=== PATIENT | male | born 1985 | race Caucasian/White ===

== ENCOUNTER 2016-07-15 14:49 | Emergency (ER) | payer MEDICAID, OTHER ==
[~2016-07-15] VITALS: Ht 182.9 cm; Wt 100.0 kg
[2016-07-15 14:58] VITALS: BP 145/82; PULSE 104; RESP 15; TEMP 98; O2SAT 98
--- NOTE | 2016-07-15 16:08 | PD ---
HPI Chief Complaint: Pain: Acute or Chronic Time Seen by Provider: 16:15 Travel History International Travel<30 days: No Contact w/Intl Traveler<30days: No Traveled to known affect area: No History of Present Illness HPI 30-year-old male with PMH of chronic back pain presents to ED for evaluation of 24 hour history of left-sided lower back pain, radiating down the left leg. Worsened by certain movements. 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 He denies chronic health problems, takes no daily medications. NKDA. PFSH Social History Tobacco Use: No Allergies-Medications (Allergen,Severity, Reaction): Coded Allergies: No Known Allergies (Unverified , 07/15/16) Reported Meds & Prescriptions Reported Meds & Active Scripts Active Flexeril (Cyclobenzaprine HCl) 10 Mg Tab 10 Mg PO TID Ibuprofen 800 Mg Tab 800 Mg PO Q8H PRN Review of Systems Except as stated in HPI: all other systems reviewed are Neg Physical Exam Narrative GENERAL: Well-nourished, well-developed white male in no acute distress, sitting on the edge of the stretcher. SKIN: Warm and dry. HEAD: Normocephalic. EYES: No scleral icterus. No injection or drainage. NECK: Supple, trachea midline. No JVD or lymphadenopathy. CARDIOVASCULAR: Regular rate and rhythm without murmurs, gallops, or rubs. RESPIRATORY: Breath sounds clear and equal bilaterally. No accessory muscle use. GASTROINTESTINAL: Abdomen soft, non-tender, nondistended. Active bowel sounds. MUSCULOSKELETAL: No cyanosis, or edema. Strength 5/5 plantar flexion, dorsiflexion, knee flexion, hip flexion. Straight leg test positive on the left. Sensation intact to light touch distally. 2+ DP pulses bilaterally. BACK: No obvious deformity. No CVA tenderness. No midline tenderness. Tenderness to palpation of the musculature of the left lumbar area. Data Data Last Documented VS Vital Signs Date Time Temp Pulse Resp B/P Pulse Ox O2 Delivery O2 Flow Rate FiO2 07/15/16 14:58 98.0 104 15 145/82 98 Orders Ketorolac Inj (Toradol Inj) (07/15/16 16:30) Orphenadrine Inj (Norflex Inj) (07/15/16 16:30) MDM Medical Decision Making Medical Screen Exam Complete: Yes Emergency Medical Condition: Yes Differential Diagnosis Musculoskeletal pain versus sciatica versus lumbago versus muscle spasm versus other Narrative Course 30-year-old male with PMH of chronic back pain presents to ED for evaluation of 24 hour history of left-sided lower back pain, radiating down the left leg. Worsened by certain movements. 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 Vitals reviewed. Physical exam reveals a nontoxic-appearing white male, sitting on the end of the stretcher in no acute distress. No midline tenderness to palpation of the back. Tenderness to palpation of the left lumbar musculature. 5/5 strength in the bilateral lower extremities. Sensation intact to light touch distally. Straight leg raise positive on the left. This is sciatica and muscle spasm. Discussed the course of the condition with the patient. He was administered IM Toradol and Norflex. He is instructed to follow-up with the primary care or his neurologist. He was prescribed 800 mg ibuprofen and Flexeril. He is instructed to take the medication as prescribed, avoid driving while taking Flexeril, follow-up as discussed. He indicated understanding of the instructions and was amenable to the plan of care. He is stable and discharged home. Diagnosis Primary Impression: Sciatic neuritis Qualified Code: M54.32 - Sciatica of left side Additional Impression: Muscle spasm Referrals: Neurologist Patient Instructions: General Instructions, Muscle Spasm (ED), Sciatica (ED) Additional Instructions: Rest, hydrate. A mixture of rest and activity is best for back pain. Resume normal, gentle activities as tolerated. No strenuous physical activities for the next few days Take 800 mg ibuprofen every 8 hours to reduce inflammation and pain. Flexeril as needed for muscle spasm. Applying ice or heat to areas with sore muscles may help to improve your patient. Do not apply ice/ heat for longer than 20 m/h. Follow-up with your primary care provider or neurologist next week. Return to the ED for worsening of symptoms or any urgent or emergent medical condition. Med/Other Pt SpecificInfo: Prescription(s) given Scripts Cyclobenzaprine (Flexeril)10 Mg Tab10 Mg PO TID #10 TAB Ref 0 Prov:Price Leigh MD 07/15/16 Ibuprofen 800 Mg Brl528 Mg PO Q8H PRN (Pain/Inflammation) #15 TAB Ref 0 Prov:Price Leigh MD 07/15/16 Disposition: 01 DISCHARGE HOME Condition: Stable Janette Johnson Jul 15, 2016 16:08
[2016-07-15] MEDS ORDERED: KETOROLAC TROMETHAMINE 60 MG/2 ML (IM) VIAL IM ONE (16:30)
[2016-07-15] MEDS ORDERED: ORPHENADRINE INJ 60 MG/2 ML AMP IM ONE (16:30)
[2016-07-15] MEDS ORDERED: IBUP800T23 PO (16:36)
[2016-07-15] MEDS ORDERED: CYCL1TAB29 PO (16:36)
[2016-07-16] MEDS ORDERED: LITH300C2 PO (12:29)
== END 2016-07-15 16:59 | disposition home or self-care (01) ==
LOC: NEPB 14:49
DX: M54.32 Sciatica, left side (principal); M62.838 Other muscle spasm
CPT/HCPCS: 96372; 99283; J1885; J2360

== ENCOUNTER 2016-07-16 12:03 | Emergency (ER) | payer MEDICAID, OTHER ==
[~2016-07-16] VITALS: Ht 182.9 cm; Wt 100.0 kg
[~2016-07-16 12:03] MED LIST: CYCL1TAB29 PO; IBUP800T23 PO
[2016-07-16 12:08] VITALS: BP 147/90; PULSE 98; RESP 16; TEMP 98.8; O2SAT 98
--- NOTE | 2016-07-16 12:16 | PD ---
HPI . back pain since last year, now worsening Chief Complaint: Back/ Neck Pain or Injury Time Seen by Provider: 12:16 Travel History International Travel<30 days: No Contact w/Intl Traveler<30days: No Traveled to known affect area: No History of Present Illness HPI 30 yr old male with bipolar disorder who recently moved 3 mts ago [place] with c/o back pain and sciatica. Patient was seen in the main ED yesterday and was wanting to get a MRI of his back. Today he is here with his papers stating he needs a MRI of his back to see what is going on. He admits to back pain and shooting pain radiating down the right lower extremity. He states the pain sometimes knocks him off his feet. He had difficulty getting off the toilet bowl and also fell. He denies any head trauma. He has no bruising. At time of examination, patient denies any cp, nausea, vomiting, diarrhea, abdominal pain, saddle anesthesia, bowel or bladder dysfunction. He does not have a primary care doctor in the area. MRI from 2016 with L5-S1 disc herniation. PFSH Past Medical History Hx Anticoagulant Therapy: No Diabetes: No Social History Tobacco Use: Yes Allergies-Medications (Allergen,Severity, Reaction): Coded Allergies: No Known Allergies (Unverified , 07/16/16) Reported Meds & Prescriptions Reported Meds & Active Scripts Active Reported [place] Carbonate 300 Mg Cap 300 Mg PO DAILY Review of Systems General / Constitutional: No: Fever Eyes: No: Visual changes HENT: No: Headaches Cardiovascular: No: Chest Pain or Discomfort Respiratory: No: Shortness of Breath Gastrointestinal: No: Abdominal Pain Genitourinary: No: Dysuria Musculoskeletal: Positive: Pain (lower back pain/sciatica ) Skin: No Rash Neurologic: No: Weakness Psychiatric: No: Depression Endocrine: No: Polydipsia Hematologic/Lymphatic: No: Easy Bruising Physical Exam Narrative GENERAL: AAO x 3, no acute distress, Well-nourished, well-developed patient. SKIN: Warm and dry. No visible rashes or bruising. HEAD: Normocephalic and atraumatic. EYES: No scleral icterus. No injection or drainage. ENT: No nasal drainage noted. Mucous membranes pink. Airway patent. NECK: Supple, trachea midline. No JVD. CARDIOVASCULAR: Regular rate and rhythm without murmurs, gallops, or rubs. RESPIRATORY: Breath sounds equal bilaterally. No accessory muscle use. No rhonchi or rales. GASTROINTESTINAL: Abdomen soft, non-tender, nondistended. EXTREMITIES: No cyanosis or edema. BACK: Nontender without obvious deformity. No CVA tenderness. No spinal tenderness. Mild paraspinal muscle tenderness near L4-L5 more on right than left. Negative SLR today PSYCH: AAO x 3, normal affect. Data Data Last Documented VS Vital Signs Date Time Temp Pulse Resp B/P Pulse Ox O2 Delivery O2 Flow Rate FiO2 07/16/16 12:08 98.8 98 16 147/90 98 MDM Medical Decision Making Medical Screen Exam Complete: Yes Emergency Medical Condition: Yes Medical Record Reviewed: Yes (seen yesterday in ED) Differential Diagnosis acute on chronic back pain, sciatica, lumbar radiculopathy, spinal stenosis, less likely cauda equina Narrative Course 30 yr old male with bipolar disorder who recently moved 3 mts ago from [place] with c/o back pain and sciatica. Patient was seen in the main ED yesterday and was wanting to get a MRI of his back. Today he is here with his papers stating he needs a MRI of his back to see what is going on. He admits to back pain and shooting pain radiating down the right lower extremity. He states the pain sometimes knocks him off his feet. He had difficulty getting off the toilet bowl and also fell. He denies any head trauma. He has no bruising. At time of examination, patient denies any cp, nausea, vomiting, diarrhea, abdominal pain, saddle anesthesia, bowel or bladder dysfunction. He does not have a primary care doctor in the area. MRI from 2016 with L5-S1 disc herniation. Patient seen and examined. Exam essentially unremarkable except for some paraspinal muscle tenderness in L4 -L5 R>L. He was prescribed flexeril and ibuprofen yesterday. Advised to take meds as prescribed. Discuss how he will need to establish with primary care doctor to navigate his care. Will eventually need referral to neurology/neurosurgery Explained that PCP will order imaging as necessary and start preliminary workup. Patient verbalized understanding of instructions, questions were answered, and thanked me for their care. I advised them if their condition worsens, please return to the nearest emergency room for further care. Diagnosis Primary Impression: Sciatica Qualified Code: M54.31 - Sciatica of right side Additional Impression: Back pain Qualified Code: M54.41 - Chronic midline low back pain with right-sided sciatica Patient Instructions: Back Pain (ED), General Instructions, Sciatica (ED) Departure Forms: Additional Instructions: As we discussed, you will need to find a primary care provider in the area. They will help navigate your care and direct you to neurology or neurosurgery. You can contact Medicaid (phone number on card or information they send you monthly) and ask for a local provider who accepts your plan. You can try the [facility] [phone] option 1 Return to ED if your symptoms worsen. Med/Other Pt SpecificInfo: No Change to Meds Disposition: 01 DISCHARGE HOME Condition: Stable Romy Bansal Jul 16, 2016 12:16
[2016-07-16] MEDS ORDERED: LITH300C2 PO (12:29)
== END 2016-07-16 12:39 | disposition home or self-care (01) ==
LOC: PHEFT 12:03
DX: M54.31 Sciatica, right side (principal)
CPT/HCPCS: 99283

== ENCOUNTER 2016-07-18 14:47 | Emergency (ER) | payer MEDICAID, OTHER ==
[~2016-07-18] VITALS: Ht 182.9 cm; Wt 100.0 kg
[~2016-07-18 14:47] MED LIST changes: +LITH300C2 PO
[2016-07-18 14:48] VITALS: BP 135/75; PULSE 92; RESP 17; TEMP 98.2; O2SAT 96
[2016-07-18] MEDS ORDERED: IBUP800T23 PO (16:10)
[2016-07-18] MEDS ORDERED: CYCL1TAB29 PO (16:10)
[2016-07-18] MEDS ORDERED: TRAM50TA PO (17:06)
--- NOTE | 2016-07-18 17:07 | PD ---
HPI Chief Complaint: Back/ Neck Pain or Injury Time Seen by Provider: 17:06 Travel History International Travel<30 days: No Contact w/Intl Traveler<30days: No Traveled to known affect area: No History of Present Illness HPI 30-year-old male presents to the emergency department for the third visit in the past 4 days for evaluation of low back pain. The patient states that he has a history of a herniated disc in his lumbar spine that occurred 6 months ago. States he had an MRI at that time that confirmed his herniated disc. 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 States that the ride was very bumpy and uncomfortable and at the end of the day he had pain in his right lower back radiating down to his right leg. States that he was seen in our ED 3 days ago and given injections and prescriptions for muscle relaxers and NSAIDs. States that the ibuprofen helps his symptoms for about 10 minutes and that he feels the Flexeril has not helped his symptoms at all. The pain is aggravated with movement. Denies any alleviating factors. Patient states he just moved to the area and does not yet have a PCP. States that he is here because he was hoping to get something different for his pain. Denies any fever, chills, nausea, vomiting, numbness or tingling, saddle anesthesia, bowel or bladder incontinence. No other complaints. PFSH Past Medical History Hx Anticoagulant Therapy: No Diabetes: No Psychiatric: Yes (BIPOLAR) Social History Alcohol Use: Yes (SOCIALLY) Tobacco Use: Yes Substance Use: No Allergies-Medications (Allergen,Severity, Reaction): Coded Allergies: No Known Allergies (Unverified , 07/18/16) Reported Meds & Prescriptions Reported Meds & Active Scripts Active Tramadol (Tramadol HCl) 50 Mg Tab 50 Mg PO Q6H PRN Reported Flexeril (Cyclobenzaprine HCl) 10 Mg Tab 10 Mg PO TID Ibuprofen 800 Mg Tab 800 Mg PO TID PRN [place] Carbonate 300 Mg Cap 300 Mg PO DAILY Review of Systems Except as stated in HPI: all other systems reviewed are Neg Physical Exam Narrative GENERAL: Well-nourished and well-developed pleasant male patient in no acute distress who is nontoxic appearing. SKIN: Warm and dry. HEAD: Normocephalic and atraumatic. EYES: No injection, drainage, or hyphema noted. PERRLA. EOMI. ENT: No nasal drainage noted. Oropharynx is clear. NECK: Supple and the trachea is midline. CARDIOVASCULAR: Regular rate and rhythm. RESPIRATORY: Breath sounds are equal bilaterally with no accessory muscle use, wheezing, rhonchi, or crackles. MUSCULOSKELETAL: No obvious deformities, swelling, cyanosis, or ecchymosis is present throughout the upper and lower extremities. Patient has full range of motion without any signs of neurovascular compromise. Strength 5/5 upper and lower extremities and equal bilaterally. BACK: Tenderness to palpation of right lumbar paraspinal muscle region. No obvious deformities, bony point tenderness, or crepitus noted throughout the thoracic and lumbar vertebrae. NEUROLOGICAL: Awake, alert, and oriented. Normal speech and gait. Cranial nerves are grossly intact. Data Data Last Documented VS Vital Signs Date Time Temp Pulse Resp B/P Pulse Ox O2 Delivery O2 Flow Rate FiO2 07/18/16 14:48 98.2 92 17 135/75 96 Room Air MDM Medical Decision Making Medical Screen Exam Complete: Yes Emergency Medical Condition: Yes Differential Diagnosis Muscle strain versus muscle spasm versus discogenic pain versus herniated disc versus lumbar radiculopathy versus sciatica Narrative Course 30-year-old male presents to the emergency department for the third time in the past 4 days for evaluation of low back pain radiating to the right leg. Patient is afebrile, vital signs are stable. No focal neurologic deficits. No red flag signs or symptoms. He has a history of a herniated disc in his lower back. This is an exacerbation of his already existing herniated disc and sciatica. I discussed at length with the patient the pathophysiology and treatment for this condition. I discussed with him that he does not need an emergent MRI at this time. He states that he understands this. He is here because he is still having pain despite the medications he was prescribed. I did look the patient up on [place] prescription drug monitoring program and he doesn't have any listed narcotic medications nor does he have a history of getting these medications. I think it's reasonable to give the patient a prescription for tramadol for his acute back pain. We did discuss again the importance of outpatient follow-up. He verbalizes understanding and is in agreement with treatment plan. Diagnosis Primary Impression: Acute low back pain with sciatica Qualified Code: M54.41 - Acute right-sided low back pain with right-sided sciatica Referrals: Primary Care Physician Patient Instructions: Acute Low Back Pain (ED), General Instructions Additional Instructions: Apply ice or heat to help alleviate symptoms. Try topical analgesics like icy hot or [place] Take medications as prescribed with food and a full glass of water. Do not take Tramadol with alcohol or while driving. Follow-up with your Primary Care Physician. Return to the ED for any acute worsening of symptoms. Med/Other Pt SpecificInfo: Prescription(s) given Scripts Tramadol 50 Mg Tab50 Mg PO Q6H PRN (PAIN GREATER THAN 6) #20 TAB Ref 0 Prov:Jignesh Michael MD 07/18/16 Disposition: 01 DISCHARGE HOME Condition: Stable Monica Seaman Jul 18, 2016 17:07
== END 2016-07-18 17:37 | disposition home or self-care (01) ==
LOC: NEPB 14:47
DX: M54.41 Lumbago with sciatica, right side (principal); Z72.0 Tobacco use; Z86.59 Personal history of other mental and behavioral disorders
CPT/HCPCS: 99282

== ENCOUNTER 2016-08-25 22:41 | Emergency (ER) | payer MEDICAID ==
[~2016-08-25] VITALS: Ht 182.9 cm; Wt 107.1 kg
[~2016-08-25 22:41] MED LIST changes: +TRAM50TA PO
[2016-08-25 22:47] VITALS: BP 140/98; PULSE 105; RESP 16; TEMP 98.2; O2SAT 99
--- NOTE | 2016-08-25 23:18 | PD ---
HPI Chief Complaint: Abdominal Pain Time Seen by Provider: 23:06 Travel History International Travel<30 days: No Contact w/Intl Traveler<30days: No Traveled to known affect area: No History of Present Illness HPI This 30-year-old male is complaining of abdominal distention and pain. He says that 4 days ago his belly looked normal but over the last 4 days he has become distended. He has not had any fever or chills. He vomited twice today. He vomited once yesterday. His urine has been dark. He has no history of liver disease. He has no history of hepatitis. He denies any use of drugs. He does drink he says only about 2 beers a day. PFSH Past Medical History Hx Anticoagulant Therapy: No Diabetes: No Psychiatric: Yes (BIPOLAR) Social History Alcohol Use: Yes (SOCIALLY) Tobacco Use: Yes Substance Use: No Allergies-Medications (Allergen,Severity, Reaction): Coded Allergies: No Known Allergies (Unverified , 08/25/16) Reported Meds & Prescriptions Reported Meds & Active Scripts Active Reported [place] Carbonate 300 Mg Cap 300 Mg PO DAILY Review of Systems General / Constitutional: No: Fever, Chills Eyes: No: Diploplia, Blurred Vision HENT: No: Headaches, Vertigo Cardiovascular: No: Chest Pain or Discomfort, Palpitations Respiratory: No: Cough, Shortness of Breath Gastrointestinal: Positive: Vomiting, Abdominal Pain, No: Diarrhea, Loss of Appetite Genitourinary: No: Urgency, Frequency Musculoskeletal: No: Myalgias, Arthralgias Skin: No Rash Neurologic: No: Weakness, Dizziness Endocrine: No: Heat Intolerance, Cold Intolerance Hematologic/Lymphatic: No: Easy Bruising Physical Exam Narrative GENERAL: Well-developed male SKIN: Focused skin assessment warm/dry. HEAD: Atraumatic. Normocephalic. EYES: Pupils equal and round. There is scleral icterus. No injection or drainage. ENT: No nasal bleeding or discharge. Mucous membranes pink and moist. NECK: Trachea midline. No JVD. CARDIOVASCULAR: Regular rate and rhythm. No murmur appreciated. RESPIRATORY: No accessory muscle use. Clear to auscultation. Breath sounds equal bilaterally. GASTROINTESTINAL: Abdomen soft, it is diffusely distended. Bowel sounds are diminished. No palpable masses MUSCULOSKELETAL: No obvious deformities. No clubbing. No cyanosis. Bilateral trace edema. NEUROLOGICAL: Awake and alert. No obvious cranial nerve deficits. Motor grossly within normal limits. Normal speech. PSYCHIATRIC: Appropriate mood and affect; insight and judgment normal. Data Data Last Documented VS Vital Signs Date Time Temp Pulse Resp B/P Pulse Ox O2 Delivery O2 Flow Rate FiO2 08/25/16 22:47 98.2 105 16 140/98 99 Orders Complete Blood Count With Diff (08/25/16 23:13) Comprehensive Metabolic Panel (08/25/16 23:13) Prothrombin Time / Inr (Pt) (08/25/16 23:13) Act Partial Throm Time (Ptt) (08/25/16 23:13) Lipase (08/25/16 23:13) Magnesium (Mg) (08/25/16 23:13) Ct Abd/Pel W Iv Contrast(Rout) (08/25/16 23:13) Labs Laboratory Tests Test 08/25/16 23:26 White Blood Count 12.3 TH/MM3 Red Blood Count 3.50 MIL/MM3 Hemoglobin 12.9 GM/DL Hematocrit 37.4 % Mean Corpuscular Volume 106.9 FL Mean Corpuscular Hemoglobin 36.9 PG Mean Corpuscular Hemoglobin 34.6 % Concent Red Cell Distribution Width 15.7 % Platelet Count 133 TH/MM3 Mean Platelet Volume 8.3 FL Neutrophils (%) (Auto) 69.5 % Lymphocytes (%) (Auto) 21.2 % Monocytes (%) (Auto) 7.4 % Eosinophils (%) (Auto) 1.2 % Basophils (%) (Auto) 0.7 % Neutrophils # (Auto) 8.6 TH/MM3 Lymphocytes # (Auto) 2.6 TH/MM3 Monocytes # (Auto) 0.9 TH/MM3 Eosinophils # (Auto) 0.1 TH/MM3 Basophils # (Auto) 0.1 TH/MM3 CBC Comment DIFF FINAL Differential Comment Prothrombin Time 17.7 SEC Prothromb Time International 1.6 RATIO Ratio Activated Partial 35.3 SEC Thromboplast Time Sodium Level 137 MEQ/L Potassium Level 3.8 MEQ/L Chloride Level 102 MEQ/L Carbon Dioxide Level 26.8 MEQ/L Anion Gap 8 MEQ/L Blood Urea Nitrogen 7 MG/DL Creatinine 0.70 MG/DL Estimat Glomerular Filtration 132 ML/MIN Rate Random Glucose 102 MG/DL Calcium Level 8.6 MG/DL Magnesium Level 1.8 MG/DL Total Bilirubin 7.5 MG/DL Aspartate Amino Transf 256 U/L (AST/SGOT) Alanine Aminotransferase 53 U/L (ALT/SGPT) Alkaline Phosphatase 206 U/L Total Protein 8.0 GM/DL Albumin 2.3 GM/DL Lipase 427 U/L [facility] Medical Decision Making Medical Screen Exam Complete: Yes Emergency Medical Condition: Yes Medical Record Reviewed: Yes Differential Diagnosis Differential includes hepatitis, obstructive jaundice, cirrhosis Narrative Course ALT is 53 . AST is 256 Total bilirubin is 7.5. The scan is pending at the time of my departure. He followed up by oncoming physician Diagnosis Primary Impression: Jaundice Peyman Polanco MD Aug 25, 2016 23:18
[2016-08-25 23:34] LABS: AUTOMATED NEUTROPHIL # 8.6 TH/MM3 (1.8-7.7); BASOPHIL # 0.1 TH/MM3 (0-0.2); BASOPHIL % 0.7 % (0.0-2.0); EOSINOPHIL # 0.1 TH/MM3 (0-0.4); EOSINOPHIL % 1.2 % (0.0-4.0); HEMATOCRIT 37.4 % (39.0-51.0); LYMPH % 21.2 % (9.0-44.0); LYMPHOCYTE # 2.6 TH/MM3 (1.0-4.8); MEAN CELL VOLUME 106.9 FL (80.0-100.0); MEAN CORPUSCULAR HEMOGLOBIN 36.9 PG (27.0-34.0); MEAN CORPUSCULAR HGB CONC 34.6 % (32.0-36.0); MONO % 7.4 % (0.0-8.0); NEUT % 69.5 % (16.0-70.0); PLATELET COUNT 133 TH/MM3 (150-450); RED CELL DISTRIBUTION WIDTH 15.7 % (11.6-17.2); WHITE BLOOD COUNT 12.3 TH/MM3 (4.0-11.0)
[2016-08-25 23:35] LABS: HEMO FLAGS DIFF FINAL
[2016-08-25 23:40] LABS: CHLORIDE 102 MEQ/L (98-107); POTASSIUM 3.8 MEQ/L (3.5-5.1); SODIUM (NA) 137 MEQ/L (136-145)
[2016-08-25 23:44] LABS: ANION GAP 8 MEQ/L (5-15); BICARBONATE 26.8 MEQ/L (21.0-32.0); BLOOD UREA NITROGEN 7 MG/DL (7-18); MAGNESIUM 1.8 MG/DL (1.5-2.5)
[2016-08-25 23:46] LABS: ALT (GPT) 53 U/L (12-78); APTT (PATIENT) 35.3 SEC (24.3-30.1); INTERNATIONAL NORMALIZED RATIO 1.6 RATIO; PROTHROMBIN TIME - PATIENT 17.7 SEC (9.8-11.6)
[2016-08-25 23:47] LABS: AST (GOT) 256 U/L (15-37); GLOMERULAR FILTRATION RATE 132 ML/MIN (>89)
[2016-08-25 23:48] LABS: TOTAL BILIRUBIN ADULT 7.5 MG/DL (0.2-1.0)
[2016-08-25 23:49] LABS: ALKALINE PHOSPHATASE 206 U/L (45-117)
--- NOTE | 2016-08-26 00:13 | PD ---
Physical Exam Date Seen by Provider: Aug 26, 2016 Time Seen by Provider: 00:13 Narrative Accepted in transfer of care from Dr. Barrios GENERAL: Pleasant adult male in no acute distress no respiratory distress SKIN: Warm and dry. Jaundice HEAD: Normocephalic. EYES: Scleral icterus. No injection or drainage. NECK: Supple, trachea midline. No JVD or lymphadenopathy. CARDIOVASCULAR: Regular rate and rhythm without murmurs, gallops, or rubs. RESPIRATORY: Breath sounds equal bilaterally. No accessory muscle use. GASTROINTESTINAL: Abdomen soft, non-tender, non- tense distended with fluid wave. MUSCULOSKELETAL: No cyanosis, or edema. BACK: Nontender without obvious deformity. No CVA tenderness. Data Data Last Documented VS Vital Signs Date Time Temp Pulse Resp B/P Pulse Ox O2 Delivery O2 Flow Rate FiO2 08/26/16 01:19 89 16 142/85 97 Room Air 08/25/16 22:47 98.2 Orders Complete Blood Count With Diff (08/25/16 23:13) Comprehensive Metabolic Panel (08/25/16 23:13) Prothrombin Time / Inr (Pt) (08/25/16 23:13) Act Partial Throm Time (Ptt) (08/25/16 23:13) Lipase (08/25/16 23:13) Magnesium (Mg) (08/25/16 23:13) Ct Abd/Pel W Iv Contrast(Rout) (08/26/16 00:25) Iohexol 350 Inj (Omnipaque 350 Inj) (08/26/16 00:28) Hepatitis Profile (08/26/16 01:35) Tylenol (Acetaminophen) (08/26/16 01:35) Labs Laboratory Tests Test 08/25/16 23:26 White Blood Count 12.3 TH/MM3 Red Blood Count 3.50 MIL/MM3 Hemoglobin 12.9 GM/DL Hematocrit 37.4 % Mean Corpuscular Volume 106.9 FL Mean Corpuscular Hemoglobin 36.9 PG Mean Corpuscular Hemoglobin 34.6 % Concent Red Cell Distribution Width 15.7 % Platelet Count 133 TH/MM3 Mean Platelet Volume 8.3 FL Neutrophils (%) (Auto) 69.5 % Lymphocytes (%) (Auto) 21.2 % Monocytes (%) (Auto) 7.4 % Eosinophils (%) (Auto) 1.2 % Basophils (%) (Auto) 0.7 % Neutrophils # (Auto) 8.6 TH/MM3 Lymphocytes # (Auto) 2.6 TH/MM3 Monocytes # (Auto) 0.9 TH/MM3 Eosinophils # (Auto) 0.1 TH/MM3 Basophils # (Auto) 0.1 TH/MM3 CBC Comment DIFF FINAL Differential Comment Prothrombin Time 17.7 SEC Prothromb Time International 1.6 RATIO Ratio Activated Partial 35.3 SEC Thromboplast Time Sodium Level 137 MEQ/L Potassium Level 3.8 MEQ/L Chloride Level 102 MEQ/L Carbon Dioxide Level 26.8 MEQ/L Anion Gap 8 MEQ/L Blood Urea Nitrogen 7 MG/DL Creatinine 0.70 MG/DL Estimat Glomerular Filtration 132 ML/MIN Rate Random Glucose 102 MG/DL Calcium Level 8.6 MG/DL Magnesium Level 1.8 MG/DL Total Bilirubin 7.5 MG/DL Aspartate Amino Transf 256 U/L (AST/SGOT) Alanine Aminotransferase 53 U/L (ALT/SGPT) Alkaline Phosphatase 206 U/L Total Protein 8.0 GM/DL Albumin 2.3 GM/DL Lipase 427 U/L [facility] Medical Record Reviewed: Yes Supervised Visit with ALMA: No Differential Diagnosis Accepted in transfer of care from Dr. Barrios; please refer to his dictation Narrative Course Accepted in transfer of care from Dr. Barrios for pending CT and patient disposition CT abdomen and pelvis resulted with changes consistent with cirrhosis and ascites with hepatomegaly and splenomegaly also changes for pulmonary hypertension; radiology recommendation for liver MRI Patient is aware of abnormal lab values and recommendation for admission for new onset ascites; patient reports that he does drink alcohol, recently he's been using acetaminophen and ibuprofen for musculoskeletal pain and has been taking as much as acetaminophen 500 mg 3 times a day last dose of acetaminophen was on at 8 AM. Patient denies any hematemesis coffee-ground emesis melena hematochezia. Patient denies any fever or chills. Patient denies any abdominal tenderness with direct palpation. Patient reports that he cannot stay as he has seemingly family vehicle and is at home with history children. Patient will sign out AMA. Patient does report he will return for further evaluation and management. Physician Communication Physician Communication call placed to [facility] service for admission Diagnosis Primary Impression: Jaundice Additional Impressions: Cirrhosis of liver with ascites Qualified Code: K74.60 - Cirrhosis of liver with ascites, unspecified hepatic cirrhosis type SIRS (systemic inflammatory response syndrome) Admitting Information Admitting Physician Requests: Admit Nona Cuello MD Aug 26, 2016 00:13
[2016-08-26] MEDS ORDERED: IOHEXOL 350 MG/ML 10 ML VIAL (for RAD DIAG) IV ONE (00:28)
--- NOTE | 2016-08-26 00:46 | RADHPO ---
EXAM DATE/TIME: 08/26/2016 00:10 [facility] COMPARISON: No previous studies available for comparison. INDICATIONS : Abdominal pain and distention. Evaluate for cirrhosis. IV CONTRAST: 100 cc Omnipaque 350 (iohexol) IV ORAL CONTRAST: No oral contrast ingested. RADIATION DOSE: 20.38 CTDIvol (mGy) MEDICAL HISTORY : None SURGICAL HISTORY : None. ENCOUNTER: Initial ACUITY: 4 - 6 days PAIN SCALE: 10/10 LOCATION: Bilateral Abdomen and pelvis. TECHNIQUE: Volumetric scanning of the abdomen and pelvis was performed. Using automated exposure control and ad justment of the mA and/or kV according to patient size, radiation dose was kept as low as reasonably achievable to obtain optimal diagnostic quality images. FINDINGS: LOWER LUNGS: There is atelectasis in the right lower lobe. LIVER: The liver is enlarged measuring 22.9 cm in length and demonstrates very heterogeneous density likely related to steatosis. No focal definite liver lesion is identified. There is no dilation of the bili armando tree. No calcified gallstones. SPLEEN: Enlarged measuring 14.2 cm in length. No lesion is present. PANCREAS: Within normal limits. KIDNEYS: Normal in size and shape. There is no mass, stone or hydronephrosis. ADRENAL GLANDS: Within normal limits. VASCULAR: There is no aortic aneurysm. BOWEL/MESENTERY: The stomach, small bowel, and colon demonstrate no acute abnormality. There is no free intraperitone al air. There is moderate free fluid within the abdomen and pelvis. There is calcification along the dependent peritoneal surface within the pelvis. ABDOMINAL WALL: Within normal limits. RETROPERITONEUM: There is no lymphadenopathy. BLADDER: No wall thickening or mass. REPRODUCTIVE: Within normal limits. INGUINAL: There is no lymphadenopathy or hernia. MUSCULOSKELETAL: No acute osseous abnorm abnormality is alities identified. CONCLUSION: 1. Hepatomegaly with likely steatosis and suspected cirrhosis. The liver enhances very heterogeneousl y but no definite mass is visualized. It may be prudent to obtain liver MRI on an outpatient elective basis. 2. Findings that may be related to portal hypertension include moderate volume of ascites and mild sp lenomegaly. Eulalio Duarte MD on August 26, 2016 at 0:38 Board Certified Radiologist. This report was verified electronically.
[2016-08-26 01:19] VITALS: BP 142/85; PULSE 89; RESP 16; O2SAT 97
== END 2016-08-26 01:48 | disposition left against medical advice (07) ==
LOC: PHED 22:41
DX: K74.60 Unspecified cirrhosis of liver (principal); R18.8 Other ascites; R11.10 Vomiting, unspecified; Z79.899 Other long term (current) drug therapy
CPT/HCPCS: 74177; 80053; 80307; 83690; 83735; 85025; 85610; 85730; 99284; Q9967

== ENCOUNTER 2016-08-30 13:13 | Observation (INO) | payer MEDICAID, OTHER ==
[~2016-08-30] VITALS: Ht 182.9 cm; Wt 104.9 kg
[~2016-08-30 13:13] MED LIST changes: -CYCL1TAB29 PO; -IBUP800T23 PO; -TRAM50TA PO
[2016-08-30 13:22] VITALS: BP 140/93; PULSE 99; RESP 20; TEMP 99.2; O2SAT 97
[2016-08-30 13:53] LABS: AUTOMATED NEUTROPHIL # 8.4 TH/MM3 (1.8-7.7); BASOPHIL # 0.1 TH/MM3 (0-0.2); EOSINOPHIL # 0.3 TH/MM3 (0-0.4); EOSINOPHIL % 2.2 % (0.0-4.0); LYMPH % 18.8 % (9.0-44.0); LYMPHOCYTE # 2.3 TH/MM3 (1.0-4.8); MEAN CELL VOLUME 108.9 FL (80.0-100.0); MONO % 8.1 % (0.0-8.0); NEUT % 69.9 % (16.0-70.0); PLATELET COUNT 140 TH/MM3 (150-450); WHITE BLOOD COUNT 12.1 TH/MM3 (4.0-11.0)
[2016-08-30 13:55] LABS: HEMO FLAGS DIFF FINAL
[2016-08-30 14:01] LABS: BLOOD, URINE NEG (NEG); GLUCOSE,URINE NEG (NEG); KETONE, URINE NEG (NEG); NITRITE,URINE NEG (NEG)
[2016-08-30 14:04] VITALS: BP 131/75; PULSE 88; RESP 20; O2SAT 97
[2016-08-30 14:10] LABS: COMMENT (UR) CULT NOT INDICATED; CULTURE IF INDICATED CULT NOT INDICATED; METHOD OF COLLECTION CLEAN CATCH; RBC, URINE 0-3 /hpf (0-3); SQUAMOUS EPITHELIAL CELL URINE 0-5 /hpf (0-5); URINE COLOR YELLOW (YELLW/STRAW); WBC, URINE 0-2 /hpf (0-5)
[2016-08-30 14:12] LABS: CHLORIDE 104 MEQ/L (98-107); POTASSIUM 3.7 MEQ/L (3.5-5.1); SODIUM (NA) 136 MEQ/L (136-145)
[2016-08-30 14:15] LABS: ANION GAP 9 MEQ/L (5-15); BICARBONATE 23.5 MEQ/L (21.0-32.0)
[2016-08-30 14:16] LABS: BLOOD UREA NITROGEN 3 MG/DL (7-18)
[2016-08-30 14:18] LABS: ALT (GPT) 48 U/L (12-78); AST (GOT) 202 U/L (15-37); GLOMERULAR FILTRATION RATE 136 ML/MIN (>89)
[2016-08-30 14:20] LABS: TOTAL BILIRUBIN ADULT 6.9 MG/DL (0.2-1.0)
[2016-08-30 14:21] LABS: ALKALINE PHOSPHATASE 186 U/L (45-117)
[2016-08-30] MEDS ORDERED: NALOXONE HCL 0.4 MG/ML AMP IV PRN ×2 (16:15→18:45)
[2016-08-30] MEDS ORDERED: MAGNESIUM HYDROXIDE SUSP 30 ML CUP PO PRN (16:15)
[2016-08-30] MEDS ORDERED: ACETAMINOPHEN 325 MG TAB PO PRN (16:15)
[2016-08-30 16:33] VITALS: BP 139/72; PULSE 86; RESP 18; O2SAT 96
--- NOTE | 2016-08-30 16:45 | PD ---
HPI Chief Complaint: Abdominal Pain Time Seen by Provider: 13:55 Travel History International Travel<30 days: No Contact w/Intl Traveler<30days: No Traveled to known affect area: No History of Present Illness HPI Patient is 30 years old. He has generalized abdominal pain and abdominal swelling. Has been increasing rapidly over the past few days. The pain is increasing. He's had difficulty sleeping because of it. He denies fever. He denies nausea vomiting diarrhea. The patient drinks alcohol and drank alcohol last night. He states he's had none today. He denies a history of diagnosis of hepatitis. He takes lithium for bipolar disorder. He suffers with chronic back pain. He denies history IV drug abuse. PFS Past Medical History Hx Anticoagulant Therapy: No Bipolar Disorder: Yes Anxiety: Yes Diabetes: No Diminished Hearing: No Psychiatric: Yes (BIPOLAR) Influenza Vaccination: No Social History Alcohol Use: Yes (SOCIALLY) Tobacco Use: Yes (3 PACKS A WEEK) Substance Use: No Allergies-Medications (Allergen,Severity, Reaction): Coded Allergies: No Known Allergies (Unverified , 08/30/16) Reported Meds & Prescriptions Reported Meds & Active Scripts Active Reported [place] Carbonate 300 Mg Cap 300 Mg PO DAILY Review of Systems Except as stated in HPI: all other systems reviewed are Neg General / Constitutional: No: Fever, Chills Gastrointestinal: Positive: Abdominal Pain Physical Exam Narrative GENERAL: 30-year-old male pleasant SKIN: Focused skin assessment warm/dry. HEAD: Atraumatic. Normocephalic. EYES: Pupils equal and round. Scleral icterus present. ENT: No nasal bleeding or discharge. Mucous membranes pink and moist. NECK: Trachea midline. No JVD. CARDIOVASCULAR: Regular rate and rhythm. No murmur appreciated. RESPIRATORY: No accessory muscle use. Clear to auscultation. Breath sounds equal bilaterally. GASTROINTESTINAL: Soft. No focus of tenderness. MUSCULOSKELETAL: Edema of the bilateral lower extremities, left greater than right. NEUROLOGICAL: Awake and alert. No obvious cranial nerve deficits. Motor grossly within normal limits. Normal speech. PSYCHIATRIC: Appropriate mood and affect; insight and judgment normal. Data Data Last Documented VS Vital Signs Date Time Temp Pulse Resp B/P Pulse Ox O2 Delivery O2 Flow Rate FiO2 08/30/16 14:04 88 20 131/75 97 Room Air 08/30/16 13:22 99.2 Vital signs reviewed Orders Complete Blood Count With Diff (4/4/17 13:43) Comprehensive Metabolic Panel (08/30/16 13:43) Urinalysis - C+S If Indicated (08/30/16 13:43) Iv Access Insert/Monitor (08/30/16 13:43) Oxygen Administration (08/30/16 13:43) Oximetry (08/30/16 13:43) Lipase (08/30/16 13:43) Us Guided Abd Paracentesis (08/30/16 ) Peritoneal Cell Count + Diff (08/30/16 16:07) Total Protein Peritoneal Fluid (08/30/16 16:07) Albumin, Peritoneal Fluid (08/30/16 16:07) Glucose, Peritoneal Fluid (08/30/16 16:07) Ldh, Peritoneal Fluid (08/30/16 16:07) Amylase, Peritoneal Fluid (08/30/16 16:07) Fluid Culture And Gram Stain (08/30/16 16:07) Cytology Request For Service (08/30/16 16:07) Ldh Serum (08/30/16 16:07) Prothrombin Time / Inr (Pt) (08/30/16 16:07) Act Partial Throm Time (Ptt) (08/30/16 16:07) Admit Order (Ed Use Only) (08/30/16 16:07) Labs Laboratory Tests Test 08/30/16 08/30/16 13:35 13:45 White Blood Count 12.1 TH/MM3 Red Blood Count 3.30 MIL/MM3 Hemoglobin 12.2 GM/DL Hematocrit 36.0 % Mean Corpuscular Volume 108.9 FL Mean Corpuscular Hemoglobin 37.0 PG Mean Corpuscular Hemoglobin 34.0 % Concent Red Cell Distribution Width 16.0 % Platelet Count 140 TH/MM3 Mean Platelet Volume 8.2 FL Neutrophils (%) (Auto) 69.9 % Lymphocytes (%) (Auto) 18.8 % Monocytes (%) (Auto) 8.1 % Eosinophils (%) (Auto) 2.2 % Basophils (%) (Auto) 1.0 % Neutrophils # (Auto) 8.4 TH/MM3 Lymphocytes # (Auto) 2.3 TH/MM3 Monocytes # (Auto) 1.0 TH/MM3 Eosinophils # (Auto) 0.3 TH/MM3 Basophils # (Auto) 0.1 TH/MM3 CBC Comment DIFF FINAL Differential Comment Sodium Level 136 MEQ/L Potassium Level 3.7 MEQ/L Chloride Level 104 MEQ/L Carbon Dioxide Level 23.5 MEQ/L Anion Gap 9 MEQ/L Blood Urea Nitrogen 3 MG/DL Creatinine 0.68 MG/DL Estimat Glomerular Filtration 136 ML/MIN Rate Random Glucose 105 MG/DL Calcium Level 8.3 MG/DL Total Bilirubin 6.9 MG/DL Aspartate Amino Transf 202 U/L (AST/SGOT) Alanine Aminotransferase 48 U/L (ALT/SGPT) Alkaline Phosphatase 186 U/L Total Protein 7.9 GM/DL Albumin 2.2 GM/DL Lipase 437 U/L Urine Collection Type CLEAN CATCH Urine Color YELLOW Urine Turbidity CLEAR Urine pH 6.0 Urine Specific [place] 1.007 Urine Protein NEG mg/dL Urine Glucose (UA) NEG mg/dL Urine Ketones NEG mg/dL Urine Occult Blood NEG Urine Nitrite NEG Urine Bilirubin NEG Urine Leukocyte Esterase NEG Urine RBC 0-3 /hpf Urine WBC 0-2 /hpf Urine Squamous Epithelial 0-5 /hpf Cells Microscopic Urinalysis Comment CULT NOT INDICATED Urine Collection Time 13:45 MDM Medical Decision Making Medical Screen Exam Complete: Yes Emergency Medical Condition: Yes Medical Record Reviewed: Yes Differential Diagnosis Constipation, Gastritis, Acute Cholecystitis, Biliary Colic, Pancreatitis, GIBSON , Hepatitis, Bowel Obstruction, Cystitis, Mesenteric Ischemia, AAA, Appendicitis , Renal Stone/Hydronephrosis, GERD, perforated viscous Narrative Course CBC & BMP Diagram 08/30/16 13:35 T bili 6.9 AST 202 Lipase 437 UA mena-negative CT from 5 days prior shows 1. hepatomegaly with likely steatosis and suspected cirrhosis. The liver enhances very heterogeneously but no definite mass is visualized. It may be prudent to obtain liver MRI on an outpatient elective basis. 2. finding may be related to portal hypertension include moderate volute of ascites and mild splenomegaly The patient will be admitted for diagnostic evaluation. Case discussed with Dr. Gregorio. Case d/w Dr. Johnson. Diagnosis Primary Impression: Cirrhosis of liver with ascites Qualified Code: K74.60 - Cirrhosis of liver with ascites, unspecified hepatic cirrhosis type Additional Impression: Jaundice Admitting Information Admitting Physician Requests: Observation Cesar Ulrich MD Aug 30, 2016 16:45
[2016-08-30 16:50] LABS: APTT (PATIENT) 35.5 SEC (24.3-30.1); INTERNATIONAL NORMALIZED RATIO 1.6 RATIO; PROTHROMBIN TIME - PATIENT 18.2 SEC (9.8-11.6)
[2016-08-30] MEDS: FUROSEMIDE 20 MG TAB PO SCH (16:50)
[2016-08-30] MEDS: SODIUM CHLORIDE 0.9% FLUSH 10 ML FLUSH IV FLUSH PRN (16:51)
[2016-08-30] MEDS ORDERED: HYDROmorphone HCL PF 1 MG/ML VIAL IV PUSH ONE (17:00)
[2016-08-30] MEDS ORDERED: LITHIUM CARBONATE 300 MG TAB PO SCH (18:45)
[2016-08-30] MEDS ORDERED: MORPHINE SULFATE 4 MG/ML INJ IV PRN (18:45)
[2016-08-30 20:00] VITALS: BP 138/83; PULSE 95; RESP 18; TEMP 98.1; O2SAT 95
[2016-08-30] MEDS: SODIUM CHLORIDE 0.9% FLUSH 10 ML FLUSH IV FLUSH SCH (22:52)
[2016-08-30] MEDS: LITHIUM ORAL SOLUTION 300 MG/5 ML CUP PO SCH (22:54)
[2016-08-30] MEDS: MORPHINE SULFATE 4 MG/ML INJ IV PRN (23:15)
[2016-08-31] VITALS: BP 112/94; PULSE 107; RESP 20; TEMP 98.1; O2SAT 93
[2016-08-31] MEDS: SODIUM CHLORIDE 0.9% FLUSH 10 ML FLUSH IV FLUSH PRN (05:43)
[2016-08-31] MEDS: ONDANSETRON HCL 4 MG/2 ML VIAL IVP PRN ×2 (05:43→09:56)
[2016-08-31 06:49] LABS: AUTOMATED NEUTROPHIL # 7.6 TH/MM3 (1.8-7.7); BASOPHIL % 0.4 % (0.0-2.0); EOSINOPHIL # 0.2 TH/MM3 (0-0.4); HEMATOCRIT 32.9 % (39.0-51.0); HEMO FLAGS DIFF FINAL; LYMPH % 14.8 % (9.0-44.0); LYMPHOCYTE # 1.5 TH/MM3 (1.0-4.8); MEAN CELL VOLUME 108.2 FL (80.0-100.0); MEAN CORPUSCULAR HEMOGLOBIN 37.1 PG (27.0-34.0); MEAN CORPUSCULAR HGB CONC 34.3 % (32.0-36.0); MONO % 8.7 % (0.0-8.0); NEUT % 74.1 % (16.0-70.0); PLATELET COUNT 117 TH/MM3 (150-450); RED BLOOD COUNT 3.04 MIL/MM3 (4.50-5.90); RED CELL DISTRIBUTION WIDTH 16.3 % (11.6-17.2); WHITE BLOOD COUNT 10.2 TH/MM3 (4.0-11.0)
[2016-08-31 06:55] LABS: CHLORIDE 103 MEQ/L (98-107); SODIUM (NA) 139 MEQ/L (136-145)
[2016-08-31 06:58] LABS: INTERNATIONAL NORMALIZED RATIO 1.6 RATIO
[2016-08-31 07:02] LABS: ANION GAP 7 MEQ/L (5-15); BICARBONATE 28.9 MEQ/L (21.0-32.0); BLOOD UREA NITROGEN 4 MG/DL (7-18)
[2016-08-31 07:04] LABS: ALT (GPT) 45 U/L (12-78); AST (GOT) 177 U/L (15-37); GLOMERULAR FILTRATION RATE 146 ML/MIN (>89)
[2016-08-31 07:06] LABS: TOTAL BILIRUBIN ADULT 6.9 MG/DL (0.2-1.0)
[2016-08-31 07:07] LABS: ALKALINE PHOSPHATASE 164 U/L (45-117)
[2016-08-31 08:00] VITALS: BP 123/74; PULSE 81; RESP 18; TEMP 98.6; O2SAT 96
[2016-08-31] MEDS: POTASSIUM CHLORIDE 10 MEQ CONTROLLED RELEASE TAB PO SCH (08:29)
[2016-08-31] MEDS: FUROSEMIDE 20 MG TAB PO SCH ×2 (08:29→16:26)
[2016-08-31] MEDS: LITHIUM ORAL SOLUTION 300 MG/5 ML CUP PO SCH (08:30)
--- NOTE | 2016-08-31 08:34 | MB ---
cc: SHELLY STEVENSON M.D. DATE OF CONSULTATION 08/31/2016 DATE OF [address] Ulrich. REASON FOR CONSULTATION Abdominal pain. Increased liver enzymes. Abdominal distension. HISTORY OF PRESENT ILLNESS Mr. Nixon is a 30-year-old gentleman with history of heavy alcohol use who came to the emergency room with increased abdominal girth, swelling and abdominal pain. He stated this was happening for the last one week, never had this before. He was noticed to be jaundiced. Denied any nausea, vomiting, melena, hematemesis, hematochezia, dysphagia or odynophagia. The patient denies any previous history of hepatitis or knowledge of liver disease. No family history of liver issues. Overall healthy. He recently had a back injury at work. He had an MRI which showed lumbar spine issues, unclear exactly what. He is also complaining of pain in the left leg that according to him got worse recently. He also had swelling of his ankles improved with bedrest. PAST MEDICAL HISTORY 1. Chronic back pain. 2. Bipolar disorder. 3. Alcoholic. 4. Anxiety. PAST SURGICAL HISTORY None. SOCIAL HISTORY He continues to drink on a daily basis, mostly beer. Smokes three packs of cigarettes per week. Denies any drug use. ALLERGIES No known allergies. MEDICATIONS AT HOME [place]. CURRENT MEDICATIONS In the hospital the patient was started on - 1. Potassium chloride. 2. Aldactone. 3. Morphine p.r.n. 4. Lasix. 5. Tylenol p.r.n. 6. Zofran. 7. Milk of Magnesia. ALLERGIES No known allergies. REVIEW OF SYSTEMS CONSTITUTIONAL: He denies any fever or chills, weight loss. She does have weight gain. ENT: No alteration in baseline hearing or visual acuity. PULMONARY: Denies any chest pain, shortness of breath. GASTROINTESTINAL: As above. GENITOURINARY: Denies dysuria, hematuria. HEMATOLOGICAL: No history of anemia or bleeding disorder. SKIN: No alteration in baseline skin lesion. He is jaundiced. NECK: No JVD. ECONOMIC CONSULTANT: No history of TIA or CVA kind of symptoms. PHYSICAL EXAMINATION GENITALIA: On clinical exam he is sitting comfortably in bed in no acute distress, jaundiced and has telangiectasias on his face. VITAL SIGNS: Temperature is 98.1, heart rate is 107, respirations 20, blood pressure 112/94, saturation 95. HEENT: PERRLA. Jaundice. NECK: No JVD. No lymphadenopathy. CHEST: Clear auscultation and palpation. CARDIOVASCULAR: S1. S2. No murmur. ABDOMEN: Soft but distended. Possible ascites. ECONOMIC CONSULTANT: Awake, alert, oriented x 3. No flapping tremor. EXTREMITIES: He has multiple tattoos on his legs and arms and mild pedal edema. LABORATORY DATA His hemoglobin is 12.1, white count 10.2, MCV 108.2, platelets 117. PT/INR 18 and 1.6. His chemistry is suggestive of bilirubin of 6.9, AST 177, alkaline phosphatase 186, LDH 386, lipase 437, albumin 2.1. IMAGING STUDIES He had a CT done on his previous visit in the emergency room and that was suggestive of hepatomegaly, most likely steatosis, suspected cirrhosis. MRI recommending portal hypertension with moderate volume of ascites and mild splenomegaly. IMPRESSION Mr. Nixon is a 30-year-old gentleman admitted with increased abdominal girth, elevated liver enzymes. Imaging suggesting liver cirrhosis, most likely secondary to alcohol abuse. Alcohol abuse most likely the cause of his symptoms at this time. RECOMMENDATIONS 1. MRI of the liver was recommended to rule out any liver mass and also to evaluate for the amount of the ascites. If ascites increases in quantity, may need ultrasound-guided paracentesis, diagnostic and therapeutic. Additional workup will be sent to evaluate for other etiologies of his liver disease. 2. Continue on Lasix and Aldactone. 3. 2 gram sodium diet. 4. Strict input and output charting. 5. The patient was counseled about stopping alcohol completely. Upon discharge may consider referral to Alcoholics Anonymous or detox center. 6. Supportive care. 7. Further recommendation will depend on the patient's clinical status and the above results. MD KELLIE WestfallB/ELISEO /7:58 AM /8:09 AM JELANI
[2016-08-31 08:57] LABS: TOTAL BILIRUBIN ADULT 7.3 MG/DL (0.2-1.0)
[2016-08-31] MEDS ORDERED: SPIRONOLACTONE 100 MG TAB PO SCH (09:00)
[2016-08-31] MEDS: SODIUM CHLORIDE 0.9% FLUSH 10 ML FLUSH IV FLUSH SCH ×2 (09:00→20:16)
--- NOTE | 2016-08-31 09:41 | RADHPO ---
EXAM DATE/TIME: 08/31/2016 08:41 [facility] COMPARISON: No previous studies available for comparison. INDICATIONS : Ascites. MEDICAL HISTORY : Ascites. Jaundice. Bipolar. Chronic back pain. SURGICAL HISTORY : Jaw repair. ENCOUNTER: Initial ACUITY: 1 week PAIN SCORE: 3/10 LOCATION: Right lower quadrant FLUID: Total volume of 2,500 cc of clear, yellow fluid was removed. Fluid was sent to lab for ordered studies. Post procedure scanning reveals no hematoma or other complication. TECHNIQUE: 1. Ultrasound guidance for abdominal paracentesis. 2. Paracentesis. The risks, benefits, and alternatives to ultrasound guided paracentesis were explained to the patient in detail including the risk of bleeding and infection. Written and verbal informed consent was obt ained. With the patient on the ultrasound table, ultrasound imaging was used to select the most appr opriate approach for paracentesis. Overlying skin was prepped and draped in the usual sterile fashio n and with a local anesthetic, a dermatotomy was made with an 11 blade scalpel. A 6 [place] Saf-T-maryjane tesis catheter was introduced into the peritoneal cavity and fluid was collected. The patient tolerated the procedure well and left the ultrasound suite in stable condition. CONCLUSION: Uncomplicated ultrasound guided paracentesis. Hiren Quinn MD on August 31, 2016 at 9:39 Board Certified Radiologist. This report was verified electronically.
[2016-08-31] MEDS: MORPHINE SULFATE 4 MG/ML INJ IV PRN ×4 (09:57→22:20)
[2016-08-31 12:00] VITALS: BP_SYST 117; BP_SYST 120; BP_DIAS 63; BP_DIAS 77; PULSE 78; PULSE 92; RESP 18; RESP 20; TEMP 98.7; O2SAT 96
[2016-08-31 12:09] LABS: PERITONEAL HISTIOCYTES 74 %; PERITONEAL LYMPHS 21 %; PERITONEAL MONOS 5 %; PERITONEAL POLYS(SEGS) 0 %; PERITONEAL WBC 139 /MM3 (0-10)
[2016-08-31] MEDS: SPIRONOLACTONE 50 MG TAB PO SCH (12:19)
[2016-08-31 12:58] LABS: TRANSFERRIN IRON PROFILE 82 MG/DL (200-360)
[2016-08-31 13:01] LABS: FERRITIN 1803 NG/ML (26-388)
--- NOTE | 2016-08-31 15:55 | HHI.HP ---
[facility] Primary Care Physician No Primary Care Physician Admission Diagnosis Liver Disease, Hyperbilirubinemia, Edema Diagnoses: Travel History International Travel<30 Days: No Contact w/Intl Traveler <30 Da: No Traveled to Known Affected Are: No History of Present Illness This is a 30-year-old male with past medical history of bipolar disorder and heavy alcohol use who presented to the ER yesterday complaining of jaundice, pedal edema and abdominal swelling. The patient underwent abdominal paracentesis today with removal of 2.5 L of clear yellow fluid. He feels much better. Denies any confusion. Otherwise no palliative or provocative factors. Symptoms moderate, progressive and constant. Last alcohol beverage was yesterday. He denies any tremors or history of alcohol withdrawal. The patient has been taking lithium but has not followed up with a psychiatrist in several months as he moved to this area recently. Review of Systems Except as stated in HPI: all other systems reviewed are Neg Past Family Social History Past Medical History As per history of present illness Allergies: Coded Allergies: No Known Allergies (Unverified , 08/30/16) Family History Both paternal and maternal grandmothers had lung cancer. Social History He does smoke tobacco. Previous marijuana use. No illicits. Physical Exam Vital Signs Vital Signs Date Time Temp Pulse Resp B/P Pulse Ox O2 Delivery O2 Flow Rate FiO2 08/31/16 13:54 20 08/31/16 12:00 98.7 92 18 117/77 96 08/31/16 08:00 98.6 81 18 123/74 96 08/31/16 00:00 98.1 107 20 112/94 93 08/30/16 20:00 98.1 95 18 138/83 95 08/30/16 17:08 18 08/30/16 16:33 86 18 139/72 96 Room Air Physical Exam GENERAL: Well-nourished, well-developed patient. Mildly jaundice. SKIN: Warm and dry. Multiple tattoos. HEAD: Normocephalic. EYES: Positive scleral icterus. No injection or drainage. NECK: Supple, trachea midline. No JVD or lymphadenopathy. CARDIOVASCULAR: Regular rate and rhythm without murmurs, gallops, or rubs. RESPIRATORY: Breath sounds equal bilaterally. No accessory muscle use. GASTROINTESTINAL: Bowel sounds normoactive. Mild ascites. Abdomen soft, non- tender, nondistended. EXTREMITIES: 2+ pedal edema. NEUROLOGICAL: Awake, alert, and oriented x 3. Non-focal. Laboratory Laboratory Tests Test 08/31/16 08/31/16 08/31/16 05:35 08:15 09:05 White Blood Count 10.2 Red Blood Count 3.04 Hemoglobin 11.3 Hematocrit 32.9 Mean Corpuscular Volume 108.2 Mean Corpuscular Hemoglobin 37.1 Mean Corpuscular Hemoglobin 34.3 Concent Red Cell Distribution Width 16.3 Platelet Count 117 Mean Platelet Volume 8.4 Neutrophils (%) (Auto) 74.1 Lymphocytes (%) (Auto) 14.8 Monocytes (%) (Auto) 8.7 Eosinophils (%) (Auto) 2.0 Basophils (%) (Auto) 0.4 Neutrophils # (Auto) 7.6 Lymphocytes # (Auto) 1.5 Monocytes # (Auto) 0.9 Eosinophils # (Auto) 0.2 Basophils # (Auto) 0.0 CBC Comment DIFF FINAL Differential Comment Prothrombin Time 18.0 Prothromb Time International 1.6 Ratio Sodium Level 139 Potassium Level 4.0 Chloride Level 103 Carbon Dioxide Level 28.9 Anion Gap 7 Blood Urea Nitrogen 4 Creatinine 0.64 Estimat Glomerular Filtration 146 Rate Random Glucose 90 Calcium Level 8.2 Total Bilirubin 6.9 7.3 Aspartate Amino Transf 177 (AST/SGOT) Alanine Aminotransferase 45 (ALT/SGPT) Alkaline Phosphatase 164 Total Protein 7.2 Albumin 2.1 Iron Level 103 Total Iron Binding Capacity 115 Percent Iron Saturation 89.7 Ferritin 1803 Direct Bilirubin 4.8 Tumor Marker Alpha Fetoprotein 11.0 Peritoneal Fluid WBC 139 Peritoneal Fluid RBC 320 Peritoneal Fluid Neutrophils 0 Peritoneal Fluid Lymphocytes 21 Peritoneal Fluid Monocytes 5 Peritoneal Fluid Histiocytes 74 Peritoneal Fluid Total Protein 0.8 Peritoneal Fluid Albumin 0.4 Peritoneal Fluid LDH 51 Peritoneal Fluid Glucose 100 Peritoneal Fluid Amylase 28 Date/Time Procedure Status Source Growth 08/31/16 09:05 Gram Stain Received Fluid Peritoneal Fluid Pending 08/31/16 09:05 Body Fluid Culture Received Fluid Peritoneal Fluid Pending Result Diagram: 08/31/16 0535 08/31/16 0535 Imaging Last Impressions Cyst Biopsy Asp-Paracentesis US 08/31/16 0000 Signed Impressions: Service Date/Time: Wednesday, August 31, 2016 08:41 - CONCLUSION: Uncomplicated ultrasound guided paracentesis. Hiren Quinn MD Assessment and Plan Assessment and Plan -New-onset ascites, cirrhosis likely due to alcohol use. Status post paracentesis today with removal 2-1/2 L of clear yellow fluid. No signs of underlying peritonitis. Abdominal MRI is pending. GI is following the patient. I started him on spironolactone and Lasix. Cirrhosis education was provided and alcohol abstinence was counseled to the patient. Patient states he is motivated to stay away from alcohol. -Bipolar disorder. The patient needs to establish with a psychiatrist. I will check a lithium level. Continue lithium. -DVT prophylaxis with SCDs. Emily Johnson MD Aug 31, 2016 15:55
[2016-08-31] MEDS: REMOVE OLD PATCH T-DERMAL SCH (16:00)
[2016-08-31] MEDS ORDERED: GADODIAMIDE PF 287 MG/ML 20 ML VIAL (for RAD MRI) IV ONE (16:45)
--- NOTE | 2016-08-31 18:23 | RADHPO ---
EXAM DATE/TIME: 08/31/2016 15:57 [facility] COMPARISON: CT ABDOMEN & PELVIS W CONTRAST, August 26, 2016, 0:10. INDICATIONS : Abnormal CT scan. CONTRAST: 16 cc Omniscan (gadodiamide) IV MEDICAL HISTORY : None. SURGICAL HISTORY : Jaw surgery. ENCOUNTER: Initial ACUITY: 3 day PAIN SCORE: 4/10 LOCATION: abdomen TECHNIQUE: Multiplanar, multisequence magnetic resonance imaging of the abdomen was performed without and with i ntravenous contrast. FINDINGS: There is moderate hepatosplenomegaly present. Liver is cirrhotic in appearance without evidence of fo candy mass or biliary ductal dilatation. The gallbladder is distended. There is mild ascites and pleura l effusion. The pancreas, adrenals and kidneys are unremarkable. There is no evidence of regional adenopathy. There is mild atelectasis in the lung bases. Bony elemen ts are focally unremarkable. CONCLUSION: Cirrhotic liver appearance with moderate hepatosplenomegaly and mild ascites. Eulalio Terry MD on August 31, 2016 at 18:17 Board Certified Radiologist. This report was verified electronically.
[2016-08-31 20:00] VITALS: BP 134/81; PULSE 88; RESP 20; TEMP 99.1; O2SAT 97
[2016-08-31] MEDS: LITHIUM CARBONATE 300 MG TAB PO SCH (20:15)
[2016-09-01] VITALS: BP 129/74; PULSE 80; RESP 20; TEMP 98.9; O2SAT 97
[2016-09-01] MEDS: MORPHINE SULFATE 4 MG/ML INJ IV PRN ×3 (03:10→10:01)
--- NOTE | 2016-09-01 07:03 | HHI.GIFU ---
GI Follow-up Note Consult Follow-up Subjective: Patient laying in bed comfortably, feeling better.S.p paracentesis -portal hypertension, no sbp. Still pedal edema. Labs pending, hepatitis negative Objective: PHYSICAL EXAMINATION: Vitals signs stable No fever HEENT: Pupils round and reactive to light; normocephalic; atraumatic; jaundice. Throat is clear. NECK: Neck is supple, no JVD, no lymphadenopathy. CHEST: Chest is clear to auscultation and percussion. CARDIAC: Regular rate and rhythm with no murmur gallop or rubs. ABDOMEN: Soft, distended, nontender; no hepatosplenomegaly; bowel sounds are present in all four quadrants. EXTREMITIES: No clubbing, cyanosis, edema. SKIN: Normal; no rash; jaundice. [employer]ACH[employer] TENDER: No focal deficits; alert and oriented times three. Available Data (labs, X- Rays, Procedues) : Laboratory Tests Test 08/30/16 08/30/16 08/31/16 08/31/16 13:35 13:45 05:35 08:15 White Blood Count 12.1 TH/MM3 10.2 TH/MM3 Red Blood Count 3.30 MIL/MM3 3.04 MIL/MM3 Hemoglobin 12.2 GM/DL 11.3 GM/DL Hematocrit 36.0 % 32.9 % Mean Corpuscular Volume 108.9 FL 108.2 FL Mean Corpuscular Hemoglobin 37.0 PG 37.1 PG Mean Corpuscular Hemoglobin 34.0 % 34.3 % Concent Red Cell Distribution Width 16.0 % 16.3 % Platelet Count 140 TH/MM3 117 TH/MM3 Mean Platelet Volume 8.2 FL 8.4 FL Neutrophils (%) (Auto) 69.9 % 74.1 % Lymphocytes (%) (Auto) 18.8 % 14.8 % Monocytes (%) (Auto) 8.1 % 8.7 % Eosinophils (%) (Auto) 2.2 % 2.0 % Basophils (%) (Auto) 1.0 % 0.4 % Neutrophils # (Auto) 8.4 TH/MM3 7.6 TH/MM3 Lymphocytes # (Auto) 2.3 TH/MM3 1.5 TH/MM3 Monocytes # (Auto) 1.0 TH/MM3 0.9 TH/MM3 Eosinophils # (Auto) 0.3 TH/MM3 0.2 TH/MM3 Basophils # (Auto) 0.1 TH/MM3 0.0 TH/MM3 CBC Comment DIFF FINAL DIFF FINAL Differential Comment Prothrombin Time 18.2 SEC 18.0 SEC Prothromb Time International 1.6 RATIO 1.6 RATIO Ratio Activated Partial 35.5 SEC Thromboplast Time Sodium Level 136 MEQ/L 139 MEQ/L Potassium Level 3.7 MEQ/L 4.0 MEQ/L Chloride Level 104 MEQ/L 103 MEQ/L Carbon Dioxide Level 23.5 MEQ/L 28.9 MEQ/L Anion Gap 9 MEQ/L 7 MEQ/L Blood Urea Nitrogen 3 MG/DL 4 MG/DL Creatinine 0.68 MG/DL 0.64 MG/DL Estimat Glomerular Filtration 136 ML/MIN 146 ML/MIN Rate Random Glucose 105 MG/DL 90 MG/DL Calcium Level 8.3 MG/DL 8.2 MG/DL Total Bilirubin 6.9 MG/DL 6.9 MG/DL 7.3 MG/DL Aspartate Amino Transf 202 U/L 177 U/L (AST/SGOT) Alanine Aminotransferase 48 U/L 45 U/L (ALT/SGPT) Alkaline Phosphatase 186 U/L 164 U/L Lactate Dehydrogenase 386 U/L Total Protein 7.9 GM/DL 7.2 GM/DL Albumin 2.2 GM/DL 2.1 GM/DL Lipase 437 U/L Urine Collection Type CLEAN CATCH Urine Color YELLOW Urine Turbidity CLEAR Urine pH 6.0 Urine Specific [place] 1.007 Urine Protein NEG mg/dL Urine Glucose (UA) NEG mg/dL Urine Ketones NEG mg/dL Urine Occult Blood NEG Urine Nitrite NEG Urine Bilirubin NEG Urine Leukocyte Esterase NEG Urine RBC 0-3 /hpf Urine WBC 0-2 /hpf Urine Squamous Epithelial 0-5 /hpf Cells Microscopic Urinalysis Comment CULT NOT INDICATED Urine Collection Time 13:45 Iron Level 103 MCG/DL Total Iron Binding Capacity 115 MCG/DL Percent Iron Saturation 89.7 % Ferritin 1803 NG/ML Direct Bilirubin 4.8 MG/DL Tumor Marker Alpha Fetoprotein 11.0 NG/ML Hepatitis A IgM Antibody NEGATIVE Hepatitis B Surface Antigen NEGATIVE Hepatitis B Core IgM Antibody NEGATIVE Hepatitis C Antibody NEGATIVE Test 08/31/16 08/31/16 09:05 16:40 Peritoneal Fluid WBC 139 /MM3 Peritoneal Fluid RBC 320 /MM3 Peritoneal Fluid Neutrophils 0 % Peritoneal Fluid Lymphocytes 21 % Peritoneal Fluid Monocytes 5 % Peritoneal Fluid Histiocytes 74 % Peritoneal Fluid Total Protein 0.8 GM/DL Peritoneal Fluid Albumin 0.4 G/DL Peritoneal Fluid LDH 51 U/L Peritoneal Fluid Glucose 100 MG/DL Peritoneal Fluid Amylase 28 U/L [place] Level 0.3 MEQ/L ASSESSMENT/PLAN: ascites s/p paracentesis-portal hypertension, no sbp liver cirrhosis secondary etoh-labs pending elevated ferritin , iron most likely secondary etoh use-we will check for hemochromatosis Recommendations 2 gm na diet avoid etoh and hepatotoxic ok to dc home from gi point fu gi 1-2 weeks fu labs vaccination hep a and b op start nadolol upon dc or propranolol egd op for screening for varices gi will sign off It was a pleasure seeing Jignesh Nixon. Thank you for this consult. Entered by: Roshni Henson MD Sep 01, 2016 07:03
[2016-09-01 08:00] VITALS: BP 131/79; PULSE 81; RESP 17; TEMP 97.7; O2SAT 98
[2016-09-01] MEDS ORDERED: NICOTINE 21 MG/24 HR PATCH T-DERMAL SCH (09:00)
[2016-09-01] MEDS: SODIUM CHLORIDE 0.9% FLUSH 10 ML FLUSH IV FLUSH SCH (09:00)
[2016-09-01] MEDS: REMOVE OLD PATCH T-DERMAL SCH (09:00)
[2016-09-01] MEDS: POTASSIUM CHLORIDE 10 MEQ CONTROLLED RELEASE TAB PO SCH (09:59)
[2016-09-01] MEDS: FUROSEMIDE 20 MG TAB PO SCH (09:59)
[2016-09-01] MEDS: SPIRONOLACTONE 50 MG TAB PO SCH (10:00)
[2016-09-01] MEDS: LITHIUM CARBONATE 300 MG TAB PO SCH (10:00)
[2016-09-01] MEDS ORDERED: FURO20TA PO (10:48)
[2016-09-01] MEDS ORDERED: NADO20TA PO (10:48)
[2016-09-01] MEDS ORDERED: ALDA50TA2 PO (10:48)
[2016-09-01] MEDS ORDERED: POTA-243 PO (10:48)
--- NOTE | 2016-09-01 11:10 | HHI.PR ---
Subjective Remarks Patient says he is feeling better. Abdominal pain much improved. Denies any nausea or vomiting. Denies any chest pain or shortness of breath. Says he is ready to go home. Promises to stop drinking alcohol. Objective Vital Signs Date Time Temp Pulse Resp B/P Pulse Ox O2 Delivery O2 Flow Rate FiO2 09/01/16 08:00 97.7 81 17 131/79 98 09/01/16 00:00 98.9 80 20 129/74 97 08/31/16 20:00 99.1 88 20 134/81 97 08/31/16 13:54 20 08/31/16 12:00 98.7 92 18 117/77 96 I/O 08/31/16 08/31/16 08/31/16 09/01/16 09/01/16 09/01/16 07:00 15:00 23:00 07:00 15:00 23:00 Intake Total 0 ml 575 ml 960 ml 720 ml Balance 0 ml 575 ml 960 ml 720 ml Intake Oral 0 ml 575 ml 960 ml 720 ml IV Total 0 ml # Voids 1 6 4 4 # Bowel Movements 0 0 0 Result Diagram: 08/31/16 0535 08/31/16 0535 Objective Remarks GENERAL: Sitting up in bed. Appears comfortable. Alert and oriented 3. SKIN: Warm and dry. HEAD: Normocephalic. EYES: No scleral icterus. No injection or drainage. NECK: Supple, trachea midline. No JVD. CARDIOVASCULAR: Regular rate and rhythm without murmurs, gallops, or rubs. RESPIRATORY: Breath sounds equal bilaterally. No accessory muscle use. GASTROINTESTINAL: Abdomen soft, non-tender, nondistended. MUSCULOSKELETAL: No cyanosis. 2+ edema bilateral lower extremities. No broken skin or erythema. BACK: Nontender without obvious deformity. No CVA tenderness. A/P Assessment and Plan //New-onset ascites, cirrhosis likely due to alcohol use. Status post paracentesis today with removal 2-1/2 L of clear yellow fluid. No signs of underlying peritonitis. Abdominal MRI is pending. GI is following the patient. I started him on spironolactone and Lasix. //Cirrhosis education was provided and alcohol abstinence was counseled to the patient. Patient states he is motivated to stay away from alcohol. = 09/01. Discussed with patient and at bedside. He will completely avoid alcohol. Agrees to follow up with primary care, gastroenterology as outpatient. Continue 2 g sodium diet. Start nadolol for esophageal varices prophylaxis. //Edema. Patient says slightly improved likely secondary to decreased oncotic pressure. Advised elevating extremities as able. //Bipolar disorder. The patient needs to establish with a psychiatrist. Heme level 0.3, borderline low. Does not appear to have any exacerbation. Continue lithium. //DVT prophylaxis with SCDs. Discharge Planning Discharge home. Condition good. Status post paracentesis. Low-sodium liver disease diet. Follow-up with primary care, gastroenterology in 1 week. Follow-up pathology pending. Discussed with patient. Repeat CBC, CMP in 2-3 days, to be forwarded to primary care. Orion Bai MD Sep 01, 2016 11:09
[2016-09-01] MEDS ORDERED: NADOLOL 20 MG TAB PO ONE (11:15)
[2016-09-02] MEDS ORDERED: NADOLOL 20 MG TAB PO SCH (09:00)
[2016-09-02 13:35] LABS: ANA SCREEN NEG (NEG)
[2016-09-02 13:52] LABS: IGA SERUM 1056 mg/dL (81-463); TISSUE TRANSGLUTAMINASE AB IGG ND U/mL (())
[2016-09-02 15:54] LABS: ENDOMYSIAL AB TITER ND (<1:5); MITOCHONDRIAL ABS LESS THAN 20.0 U (()); TISSUE TRANSGLUTAMINASE AB 3 U/mL (())
[2016-09-08 15:38] LABS: HEREDITARY HEMOCHROM SPECIMEN WB Whole Blood (())
== END 2016-09-01 11:38 | disposition home or self-care (01) ==
LOC: PHED 13:13 → PHEDA 16:07 → PH3B 17:48
PROVIDERS: ADMIT Internal Medicine; ATTEND Internal Medicine
DX: K70.31 Alcoholic cirrhosis of liver with ascites (principal); R17 Unspecified jaundice; G89.29 Other chronic pain; M54.9 Dorsalgia, unspecified; F31.9 Bipolar disorder, unspecified; F41.9 Anxiety disorder, unspecified; F17.200 Nicotine dependence, unspecified, uncomplicated
CPT/HCPCS: 49083; 74183; 80053; 80074; 80178; 81001; 81256; 82042; 82103; 82105; 82150; 82247; 82248; 82390; 82728; 82784; 82945; 83516; 83520; 83540; 83550; 83615; 83690; 84157; 85025; 85610; 85730; 86038; 86256; 87070; 87205; 89051; 99284; A9579; C1729; G0378; J1170; J2270; J2405

== ENCOUNTER 2016-09-22 08:29 | Emergency (ER) | payer MEDICAID, OTHER ==
[~2016-09-22] VITALS: Ht 182.9 cm; Wt 95.1 kg
[~2016-09-22 08:29] MED LIST changes: +ALDA50TA2 PO; +FURO20TA PO; +NADO20TA PO; +POTA-243 PO
[2016-09-22 08:36] VITALS: BP 133/87; PULSE 110; RESP 16; TEMP 97.8; O2SAT 97
[2016-09-22] MEDS ORDERED: OXYC1CAP PO (09:14)
--- NOTE | 2016-09-22 09:15 | PD ---
HPI Chief Complaint: Musculoskeletal Complaint Time Seen by Provider: 08:51 Travel History International Travel<30 days: No Contact w/Intl Traveler<30days: No Traveled to known affect area: No History of Present Illness HPI This 30-year-old male is complaining of back pain radiating down his left leg. He has a history of sciatica. He says that he had an MRI 6 ago which showed a herniated disc. He thought the scan was done at [facility] but you have records does not show any evidence of the scan. He also recently was diagnosed as having cirrhosis secondary to alcohol use. He says that he has stopped drinking. He had quite a bit of back pain which was radiating down his left leg. It seemed to improve with rest. He says that last weekend he went on a camping trip and his pain is now worse. He has pain in the back and radiates down the left leg. It is aggravated by walking. He has been using crutches which seems to help the pain PFSH Past Medical History Hx Anticoagulant Therapy: No Bipolar Disorder: Yes Anxiety: Yes Cardiovascular Problems: Yes (ASCITES ) Cirrhosis: Yes Diabetes: No Diminished Hearing: No Endocrine: No Genitourinary: No Immune Disorder: No Musculoskeletal: No Neurologic: No Psychiatric: Yes (BIPOLAR) Reproductive: No Tetanus Vaccination: < 5 Years Influenza Vaccination: No Past Surgical History Oral Surgery: Yes (JAW REPAIR AFTER BREAKING IT) Other Surgery: Yes Social History Alcohol Use: Yes (SOCIALLY; last drink 09/20/16) Tobacco Use: Yes (06/01 ppd) Substance Use: No Allergies-Medications (Allergen,Severity, Reaction): Coded Allergies: No Known Allergies (Unverified , 09/22/16) Reported Meds & Prescriptions Reported Meds & Active Scripts Active Nadolol 20 Mg Tab 20 Mg PO DAILY Klor-Con 10 (Potassium Chloride) 10 Meq Tab 10 Meq PO DAILY Furosemide 20 Mg Tab 20 Mg PO BID@ Reported [place] Carbonate 300 Mg Cap 300 Mg PO DAILY Review of Systems General / Constitutional: No: Fever, Chills Eyes: No: Diploplia HENT: No: Vertigo Cardiovascular: No: Chest Pain or Discomfort, Palpitations Respiratory: No: Cough, Shortness of Breath Gastrointestinal: No: Vomiting, Diarrhea Genitourinary: No: Hematuria Skin: No Rash Neurologic: No: Weakness, Dizziness Hematologic/Lymphatic: Positive: Easy Bruising Physical Exam Narrative GENERAL: Well-developed male SKIN: Focused skin assessment warm/dry. HEAD: Atraumatic. Normocephalic. EYES: Pupils equal and round. No scleral icterus. No injection or drainage. ENT: No nasal bleeding or discharge. Mucous membranes pink and moist. NECK: Trachea midline. No JVD. CARDIOVASCULAR: Regular rate and rhythm. No murmur appreciated. RESPIRATORY: No accessory muscle use. Clear to auscultation. Breath sounds equal bilaterally. GASTROINTESTINAL: Abdomen soft, non-tender, nondistended. Hepatic and splenic margins not palpable. MUSCULOSKELETAL: No obvious deformities. No clubbing. No cyanosis. No edema. There is no tenderness of the low back. He has pain with straight leg raising at 30. The lateral aspect of the lower leg sensation. He has good strength in plantar flexion. Dorsiflexion may be slightly weaker on the left than right. NEUROLOGICAL: Awake and alert. No obvious cranial nerve deficits. . Normal speech. PSYCHIATRIC: Appropriate mood and affect; insight and judgment normal. Data Data Last Documented VS Vital Signs Date Time Temp Pulse Resp B/P Pulse Ox O2 Delivery O2 Flow Rate FiO2 09/22/16 08:36 97.8 110 16 133/87 97 MDM Medical Decision Making Medical Screen Exam Complete: Yes Emergency Medical Condition: Yes Medical Record Reviewed: Yes Differential Diagnosis Differential includes sciatica, herniated disc, back pain Narrative Course Patient has recently been diagnosed with cirrhosis or don't think he should take any pain medication with Tylenol and anti-inflammatories may also cause a problem. I will prescribe some oxycodone for him to use. He is stable for discharge. He should follow up with his own medical doctor or neurology Diagnosis Primary Impression: Sciatica Scripts Oxycodone 5 Mg Cap5 Mg PO Q4H PRN (PAIN) #30 CAP Ref 0 Prov:Peyman Polanco MD 09/22/16 Disposition: 01 DISCHARGE HOME Condition: Stable Peyman Polanco MD Sep 22, 2016 09:14
== END 2016-09-22 09:34 | disposition home or self-care (01) ==
LOC: PHEFT 08:29
DX: M54.32 Sciatica, left side (principal); K74.60 Unspecified cirrhosis of liver; F17.210 Nicotine dependence, cigarettes, uncomplicated
CPT/HCPCS: 99283

== ENCOUNTER 2016-12-22 18:49 | Inpatient (IN) | payer MEDICAID, OTHER ==
[~2016-12-22] VITALS: Ht 182.9 cm; Wt 106.0 kg
[~2016-12-22 18:49] MED LIST changes: -ALDA50TA2 PO; +OXYC1CAP PO
[2016-12-22 18:54] VITALS: BP 147/80; PULSE 107; RESP 16; TEMP 98.6; O2SAT 98
[2016-12-22] MEDS ORDERED: SODIUM CHLORIDE 0.9% FLUSH 10 ML FLUSH IV FLUSH PRN (19:15)
--- NOTE | 2016-12-22 19:21 | PD ---
HPI Chief Complaint: Edema Time Seen by Provider: 19:02 Travel History International Travel<30 days: No Contact w/Intl Traveler<30days: No Traveled to known affect area: No History of Present Illness HPI PATIENT BROUGHT IN BY FAMILY MEMBER WHO STATES THAT HE HAS INCREASING CONFUSION , ALONG WITH SWELLING TO [place], OVER THE PAST 3 DAYS, NO FEVER/N/V BUT YELLOW EYES HAS WORSEN AND HIS ATTENTION SPAN AND RECALL IS WORSENING OVER PAST FEW DAYS MORE AND MORE CONFUSED, SLEEPS ALL DAY AND STAYS AWAKE MOST OF NIGHT....PER FAMILY PATIENT HAS BEEN TAKING HIS MEDICATIONS AND HAS NOT MISSED ANY YET HE IS INCREASING GIRTH OF ABDOMEN WELL SWELLING TO LE. PFSH Past Medical History Hx Anticoagulant Therapy: No Bipolar Disorder: Yes Anxiety: Yes Cardiovascular Problems: Yes (ASCITES ) Cirrhosis: Yes Diabetes: No Diminished Hearing: No Endocrine: No Genitourinary: No Immune Disorder: No Musculoskeletal: No Neurologic: No Psychiatric: Yes (BIPOLAR) Reproductive: No Tetanus Vaccination: Unknown Influenza Vaccination: No Past Surgical History Oral Surgery: Yes (JAW REPAIR AFTER BREAKING IT) Other Surgery: Yes Social History Alcohol Use: Yes (SOCIALLY; last drink 09/20/16) Tobacco Use: Yes (06/01 ppd) Substance Use: No Allergies-Medications (Allergen,Severity, Reaction): Coded Allergies: No Known Allergies (Unverified , 12/22/16) Reported Meds & Prescriptions Reported Meds & Active Scripts Active Oxycodone (Oxycodone HCl) 5 Mg Cap 5 Mg PO Q4H PRN Klor-Con 10 (Potassium Chloride) 10 Meq Tab 10 Meq PO DAILY Reported Vitamin B-1 (Thiamine HCl) 100 Mg Tab 100 Mg PO DAILY Spironolactone 25 Mg Tab 25 Mg PO DAILY Lactulose Liq (Lactulose) 10 Gm/15 Ml Soln 30 Ml PO BID Folic Acid 400 Mcg Tab 1 Mg PO DAILY Esomeprazole DR 40 Mg Capdr 40 Mg PO DAILY Cefdinir 300 Mg Cap 300 Mg PO BID Review of Systems ROS Limitations: Other: (CONFUSION) Except as stated in HPI: all other systems reviewed are Neg Eyes: Positive: Other (YELLOW HUE TO EYES) Cardiovascular: Positive: Edema (INCREASE B LE) Gastrointestinal: Positive: Other (INCREASE ABD DISTENSION) Neurologic: Positive: Other (CONFUSION) Hematologic/Lymphatic: Positive: Easy Bruising Physical Exam Narrative GENERAL: SKIN: Warm and dry BUT JAUNDICED, NO ERYTHEMA/STREAKING NOTED BUT ALSO SOME BRUISING IN DIFFERENT STAGES HEAD: Atraumatic. Normocephalic. EYES: Pupils equal and round. No scleral icterus. No injection or drainage. ICTERIC CONJUNCTIVA ENT: No nasal bleeding or discharge. Mucous membranes pink and moist. NECK: Trachea midline. No JVD. CARDIOVASCULAR: Regular rate and rhythm. RESPIRATORY: No accessory muscle use. Clear to auscultation. Breath sounds equal bilaterally. GASTROINTESTINAL: Abdomen soft, non-tender, distended WITH POSITIVE FLUID WAVE MUSCULOSKELETAL: Extremities without clubbing, cyanosis, or edema. No obvious deformities. NEUROLOGICAL: Awake, FOLLOWS COMMANDS BUT POOR MEMORY RECALL AND WANDERS OFF MIDSENTENCE. Motor grossly within normal limits. Five out of 5 muscle strength in the arms and legs. Normal speech. PSYCHIATRIC: DIFFICULT TO ASSESS WITH CONFUSION Data Data Last Documented VS Vital Signs Date Time Temp Pulse Resp B/P Pulse Ox O2 Delivery O2 Flow Rate FiO2 12/22/16 19:31 18 99 Room Air 12/22/16 19:04 104 12/22/16 18:54 98.6 147/80 Orders Complete Blood Count With Diff (12/22/16 19:11) Comprehensive Metabolic Panel (12/22/16 19:11) Lipase (12/22/16 19:11) Lactic Acid (12/22/16 19:11) Prothrombin Time / Inr (Pt) (12/22/16 19:11) Act Partial Throm Time (Ptt) (12/22/16 19:11) Urinalysis - C+S If Indicated (12/22/16 19:11) Ct Abd/Pel W/O Iv Contrast (12/22/16 19:11) Iv Access Insert/Monitor (12/22/16 19:11) Ecg Monitoring (12/22/16 19:11) Oximetry (12/22/16 19:11) NPO (12/22/16 19:11) Sodium Chloride 0.9% Flush (Ns Flush) (12/22/16 19:15) [place] Level (Li) (12/22/16 19:11) Ammonia (12/22/16 19:11) Chest, Single Ap (12/22/16 19:11) Ct Brain W/O Iv Contrast(Rout) (12/22/16 19:22) Ceftriaxone Inj (Rocephin Inj) (12/22/16 20:00) Admit Order (Ed Use Only) (12/22/16 20:49) Labs Laboratory Tests Test 12/22/16 19:25 White Blood Count 25.6 TH/MM3 Red Blood Count 2.41 MIL/MM3 Hemoglobin 9.7 GM/DL Hematocrit 28.2 % Mean Corpuscular Volume 117.1 FL Mean Corpuscular Hemoglobin 40.2 PG Mean Corpuscular Hemoglobin 34.4 % Concent Red Cell Distribution Width 15.2 % Platelet Count 94 TH/MM3 Mean Platelet Volume 8.3 FL Neutrophils (%) (Auto) 80.7 % Lymphocytes (%) (Auto) 9.8 % Monocytes (%) (Auto) 7.8 % Eosinophils (%) (Auto) 1.1 % Basophils (%) (Auto) 0.6 % Neutrophils # (Auto) 20.6 TH/MM3 Lymphocytes # (Auto) 2.5 TH/MM3 Monocytes # (Auto) 2.0 TH/MM3 Eosinophils # (Auto) 0.3 TH/MM3 Basophils # (Auto) 0.2 TH/MM3 CBC Comment AUTO DIFF Differential Comment AUTO DIFF CONFIRMED Platelet Estimate LOW Platelet Morphology Comment NORMAL Prothrombin Time 29.3 SEC Prothromb Time International 2.5 RATIO Ratio Activated Partial 43.3 SEC Thromboplast Time Sodium Level 125 MEQ/L Potassium Level 3.4 MEQ/L Chloride Level 90 MEQ/L Carbon Dioxide Level 25.5 MEQ/L Anion Gap 10 MEQ/L Blood Urea Nitrogen 7 MG/DL Creatinine 0.84 MG/DL Estimat Glomerular Filtration 107 ML/MIN Rate Random Glucose 114 MG/DL Lactic Acid Level 2.9 mmol/L Calcium Level 8.2 MG/DL Total Bilirubin 12.7 MG/DL Aspartate Amino Transf 208 U/L (AST/SGOT) Alanine Aminotransferase 80 U/L (ALT/SGPT) Alkaline Phosphatase 179 U/L Ammonia 19 MCMOL/L Total Protein 7.8 GM/DL Albumin 2.2 GM/DL Lipase 278 U/L [facility] Medical Decision Making Medical Screen Exam Complete: Yes Emergency Medical Condition: Yes Medical Record Reviewed: Yes Differential Diagnosis AMS DUE TO ELECTROLYTE V HEPATIC ENCEPHALOPATHY V ICH V UTI V PNA Narrative Course PATIENT DURING EVALUATION FOUND TO HAVE WBC 25K, CXR SHOWED BASILAR ATX BUT NO CONSOLIDATION, AMMONIA WAS NORMAL BUT FOUND HIM TO BE HYPONATREMIC WHICH MAY BE THE CULPRIT OF HIS CONFUSION. GIVEN ROCEPHIN 2G TO COVER FOR PULMONARY/UTI/GI OR EVEN SBP COVERAGE. CT HEAD SHOWED NO ICH. Critical Care Narrative CRITICAL CARE NOTE: With evaluation of the patient, labs, EKG, receipt of radiologic studies, administration of medications, reevaluation the patient and discussion of the patient with the admitting physicians, the total critical care time was [60] minutes. Time to perform other separately billable procedures was not included in the critical care time. Procedures Procedure Narrative LACERATION LOCATION: [right lateral eyebrow] LENGTH: [4mm] NUMBER OF STITCHES/JAGRUTI: [zero] REPAIR: The area of the laceration was prepped with Betadine and sterilely draped. The laceration was not infiltrated . The wound was copiously irrigated and explored without evidence of foreign body, tendon injury or neurovascular injury. The wound was closed using [DERMABOND]. This was a [ SINGLE] layer repair. A sterile dressing was applied. The patient was advised to keep the dressing clean and dry. Patient tolerated the procedure well. Diagnosis Primary Impression: AMS DUE TO HYPONATREMIA Additional Impressions: ACUTE LEUKOCYTOSIS SOURCE NOT OTHERWISE SPECIFIED ANEMIA/HEPATORENAL SYNDROME DUE TO CIRRHOSIS Admitting Information Admitting Physician Requests: Observation Allen Rome MD Dec 22, 2016 19:21
[2016-12-22 19:31] VITALS: RESP 18; O2SAT 99
[2016-12-22 19:40] LABS: AUTOMATED NEUTROPHIL # 20.6 TH/MM3 (1.8-7.7); BASOPHIL # 0.2 TH/MM3 (0-0.2); BASOPHIL % 0.6 % (0.0-2.0); EOSINOPHIL # 0.3 TH/MM3 (0-0.4); EOSINOPHIL % 1.1 % (0.0-4.0); HEMATOCRIT 28.2 % (39.0-51.0); LYMPH % 9.8 % (9.0-44.0); LYMPHOCYTE # 2.5 TH/MM3 (1.0-4.8); MEAN CELL VOLUME 117.1 FL (80.0-100.0); MEAN CORPUSCULAR HEMOGLOBIN 40.2 PG (27.0-34.0); MEAN CORPUSCULAR HGB CONC 34.4 % (32.0-36.0); MONO % 7.8 % (0.0-8.0); NEUT % 80.7 % (16.0-70.0); PLATELET COUNT 94 TH/MM3 (150-450); RED BLOOD COUNT 2.41 MIL/MM3 (4.50-5.90); RED CELL DISTRIBUTION WIDTH 15.2 % (11.6-17.2); WHITE BLOOD COUNT 25.6 TH/MM3 (4.0-11.0)
[2016-12-22] MEDS ORDERED: FOLI400T PO (19:41)
[2016-12-22] MEDS ORDERED: ESOM1CAP16 PO (19:41)
[2016-12-22] MEDS ORDERED: SPIR25TA PO (19:41)
[2016-12-22] MEDS ORDERED: VITA100T54 PO (19:41)
[2016-12-22] MEDS ORDERED: CEFD300C PO (19:41)
[2016-12-22] MEDS ORDERED: LACT10SO PO (19:41)
[2016-12-22 19:48] LABS: CHLORIDE 90 MEQ/L (98-107); HEMO FLAGS AUTO DIFF; POTASSIUM 3.4 MEQ/L (3.5-5.1); SODIUM (NA) 125 MEQ/L (136-145)
[2016-12-22 19:52] LABS: APTT (PATIENT) 43.3 SEC (24.3-30.1); INTERNATIONAL NORMALIZED RATIO 2.5 RATIO; PROTHROMBIN TIME - PATIENT 29.3 SEC (9.8-11.6)
[2016-12-22 19:53] LABS: ANION GAP 10 MEQ/L (5-15); BICARBONATE 25.5 MEQ/L (21.0-32.0); BLOOD UREA NITROGEN 7 MG/DL (7-18)
[2016-12-22 19:55] LABS: ALT (GPT) 80 U/L (12-78); AST (GOT) 208 U/L (15-37); GLOMERULAR FILTRATION RATE 107 ML/MIN (>89)
[2016-12-22 19:57] LABS: TOTAL BILIRUBIN ADULT 12.7 MG/DL (0.2-1.0)
[2016-12-22 19:58] LABS: ALKALINE PHOSPHATASE 179 U/L (45-117)
--- NOTE | 2016-12-22 19:58 | RADRPT ---
EXAM DATE/TIME: 12/22/2016 19:30 [facility] COMPARISON: No previous studies available for comparison. INDICATIONS : Short of breath. Rule out pulmonary edema. MEDICAL HISTORY : Venous insufficiency. Ascites. Jaundice. Liver failure. Bipolar. Chronic back pain. SURGICAL HISTORY : Jaw repair. ENCOUNTER: Initial ACUITY: 1 day PAIN SCORE: 0/10 LOCATION: Bilateral chest FINDINGS: A single view of the chest demonstrates minimal basilar density most characteristic of atelectasis. N o effusion. No pneumothorax. Heart size mildly enlarged. CONCLUSION: 1. Minimal basal atelectasis. Heart size mildly enlarged. Joseluis Johnson MD on December 22, 2016 at 19:56 Board Certified Radiologist. This report was verified electronically.
[2016-12-22] MEDS ORDERED: cefTRIAXone INJ 2,000 MG in SODIUM CHLORIDE 0.9% INJ 100 ML IV ONE (20:00)
--- NOTE | 2016-12-22 20:10 | RADRPT ---
EXAM DATE/TIME: 12/22/2016 19:40 [facility] COMPARISON: No previous studies available for comparison. INDICATIONS : Altered mental status RADIATION DOSE: 61.23 CTDIvol (mGy) MEDICAL HISTORY : Cirrhosis. SURGICAL HISTORY : None. ENCOUNTER: Initial ACUITY: 3 days PAIN SCALE: 0/10 LOCATION: cranial TECHNIQUE: Multiple contiguous axial images were obtained of the head. Using automated exposure control and adj ustment of the mA and/or kV according to patient size, radiation dose was kept as low as reasonably a chievable to obtain optimal diagnostic quality images. DICOM format image data is available electro nically for review and comparison. FINDINGS: CEREBRUM: The ventricles are normal for age. No evidence of midline shift, mass lesion, hemorrhage or acute in farction. No extra-axial fluid collections are seen. POSTERIOR FOSSA: The cerebellum and brainstem are intact. The 4th ventricle is midline. The cerebellopontine angle i s unremarkable. EXTRACRANIAL: The visualized portion of the orbits is intact. SKULL: The calvaria is intact. No evidence of skull fracture. CONCLUSION: Normal examination. Joseluis Johnson MD on December 22, 2016 at 20:08 Board Certified Radiologist. This report was verified electronically.
--- NOTE | 2016-12-22 20:20 | RADRPT ---
EXAM DATE/TIME: 12/22/2016 19:44 [facility] COMPARISON: No previous studies available for comparison. INDICATIONS : Liver swelling, ascites, nausea, vomiting. ORAL CONTRAST: No oral contrast ingested. RADIATION DOSE: 23.07 CTDIvol (mGy) MEDICAL HISTORY : Cirrhosis. SURGICAL HISTORY : None. ENCOUNTER: Initial ACUITY: 3 days PAIN SCALE: 0/10 LOCATION: abdomen TECHNIQUE: Volumetric scanning of the abdomen and pelvis was performed. Using automated exposure control and ad justment of the mA and/or kV according to patient size, radiation dose was kept as low as reasonably achievable to obtain optimal diagnostic quality images. DICOM format image data is available electro nically for review and comparison. FINDINGS: There is linear atelectasis or scarring at both lung bases. The liver is probably cirrhotic and there is moderate ascites around the liver and spleen. Spleen is normal size. No acute findings in the adrenals, kidneys or pancreas. Probable gallstone in gallbladde r. There is also moderate pelvic ascites. Several calcifications present in the pelvis. There is minimal anasarca. No acute bony abnormalities. No bowel obstruction. No free air. CONCLUSION: 1. Moderate ascites in the abdomen and pelvis with questionable liver cirrhosis. No effusions at the lung bases. Minimal basilar lung scarring. Joseluis Johnson MD on December 22, 2016 at 20:13 Board Certified Radiologist. This report was verified electronically.
[2016-12-22 20:39] LABS: PLATELET ESTIMATE SMEAR LOW (NORMAL); PLATELET MORPHOLOGY NORMAL (NORMAL); SCAN/DIFF AUTO DIFF CONFIRMED
[2016-12-22] MEDS ORDERED: ACETAMINOPHEN 325 MG TAB PO PRN (21:00)
[2016-12-22] MEDS ORDERED: ALUMINUM/MAGNESIUM/SIMETH 30 ML CUP PO PRN (21:00)
[2016-12-22 21:10] VITALS: BP 146/60; PULSE 100; RESP 18; O2SAT 99
[2016-12-22] MEDS: LACTULOSE SYRUP 20 GM/30 ML CUP PO SCH (21:39)
[2016-12-22] MEDS: SODIUM CHLORIDE 0.9% FLUSH 10 ML FLUSH IV FLUSH SCH (21:39)
[2016-12-22 22:18] VITALS: BP 137/64; PULSE 101; RESP 18; O2SAT 99
[2016-12-22 22:25] VITALS: BP 146/69; PULSE 103; RESP 19; TEMP 97.3; O2SAT 94
[2016-12-22] MEDS ORDERED: ONDANSETRON HCL 4 MG/2 ML VIAL IV PUSH PRN (22:45)
[2016-12-22 23:10] VITALS: PULSE 101
[2016-12-23] VITALS (17 sets, daily range): BP systolic 108–149; BP diastolic 47–73; PULSE 64–100; RESP 14–22; TEMP 97.2–98.7; O2SAT 95–99
[2016-12-23 04:39] LABS: BLOOD, URINE LARGE (NEG); GLUCOSE,URINE NEG (NEG); KETONE, URINE TRACE mg/dL (NEG)
[2016-12-23 04:53] LABS: NITRITE,URINE POS (NEG)
[2016-12-23 04:54] LABS: COMMENT (UR) CULTURE INDICATED; CULTURE IF INDICATED CULTURE INDICATED; URINE COLOR AMBER (YELLW/STRAW); WBC, URINE 0-2 /hpf (0-5)
[2016-12-23 06:01] LABS: AUTOMATED NEUTROPHIL # 20.4 TH/MM3 (1.8-7.7); BASOPHIL # 0.1 TH/MM3 (0-0.2); BASOPHIL % 0.4 % (0.0-2.0); EOSINOPHIL # 0.1 TH/MM3 (0-0.4); EOSINOPHIL % 0.6 % (0.0-4.0); LYMPH % 7.8 % (9.0-44.0); LYMPHOCYTE # 1.9 TH/MM3 (1.0-4.8); MEAN CELL VOLUME 117.6 FL (80.0-100.0); MEAN CORPUSCULAR HEMOGLOBIN 40.6 PG (27.0-34.0); MEAN CORPUSCULAR HGB CONC 34.5 % (32.0-36.0); MONO % 7.2 % (0.0-8.0); PLATELET COUNT 90 TH/MM3 (150-450); RED BLOOD COUNT 2.04 MIL/MM3 (4.50-5.90); RED CELL DISTRIBUTION WIDTH 15.5 % (11.6-17.2); WHITE BLOOD COUNT 24.2 TH/MM3 (4.0-11.0)
[2016-12-23 06:02] LABS: HEMO FLAGS AUTO DIFF
[2016-12-23 06:09] LABS: CHLORIDE 92 MEQ/L (98-107); POTASSIUM 3.8 MEQ/L (3.5-5.1); SODIUM (NA) 126 MEQ/L (136-145)
[2016-12-23 06:13] LABS: ANION GAP 7 MEQ/L (5-15); BICARBONATE 27.2 MEQ/L (21.0-32.0); BLOOD UREA NITROGEN 8 MG/DL (7-18)
[2016-12-23 06:16] LABS: ALT (GPT) 68 U/L (12-78); AST (GOT) 174 U/L (15-37); GLOMERULAR FILTRATION RATE 118 ML/MIN (>89)
[2016-12-23 06:18] LABS: TOTAL BILIRUBIN ADULT 11.3 MG/DL (0.2-1.0)
[2016-12-23 06:19] LABS: ALKALINE PHOSPHATASE 145 U/L (45-117)
[2016-12-23 06:23] LABS: PLATELET ESTIMATE SMEAR LOW (NORMAL); PLATELET MORPHOLOGY NORMAL (NORMAL); SCAN/DIFF AUTO DIFF CONFIRMED
[2016-12-23] MEDS: POTASSIUM CHLORIDE 10 MEQ CONTROLLED RELEASE TAB PO SCH (08:00)
[2016-12-23] MEDS: LACTULOSE SYRUP 20 GM/30 ML CUP PO SCH ×2 (08:00→20:33)
[2016-12-23] MEDS: PANTOPRAZOLE SOD 40 MG DELAYED RELEASE TAB PO SCH (08:00)
[2016-12-23] MEDS: FOLIC ACID 1 MG TAB PO SCH (08:00)
[2016-12-23] MEDS: THIAMINE HCL 100 MG TAB PO SCH (08:00)
[2016-12-23] MEDS: SODIUM CHLORIDE 0.9% FLUSH 10 ML FLUSH IV FLUSH SCH ×2 (08:00→20:32)
--- NOTE | 2016-12-23 08:49 | HHI.HP ---
HPI Service [facility] Primary Care Physician No Primary Care Physician Admission Diagnosis AMS DUE TO HYPONATREMIA/LEUKOCYTOSIS NOS Diagnoses: Chief Complaint: Altered mental status Travel History International Travel<30 Days: No Contact w/Intl Traveler <30 Da: No Traveled to Known Affected Are: No History of Present Illness The patient is a 30-year-old gentleman with a known history of alcoholic liver failure who came to the emergency room yesterday with increased confusion and increased abdominal distention with lower extremity swelling. He says that he was confused as to the date and time and place. His was concerned and brought to the hospital. He had inability to focus and felt "fuzzy "in his head. He was sleeping erratically and was quite concerned about the change condition. He recently was treated with antibiotics from [facility] for empiric treatment of ascites. He had no fever or chills as per his report. Paracentesis was done and fluid was unremarkable. Patient was prescribed Ceftin and discharged. Currently he takes Aldactone, lactulose, folic acid and Protonix without difficulty. He presents now with increased bruising over multiple extensor surfaces and in his back. He is not lightheaded or dizzy. He does have some hematuria and minimal epistaxis. Patient is jaundiced with scleral icterus. He is not confused this morning. He is however quite fatigued. Patient says he has discontinued alcohol and has been abstinent for about a month. Patient is admitted to the hospital for further evaluation and treatment Review of Systems ROS Limitations: Altered Mental Status Constitutional: COMPLAINS OF: Fatigue, Weight gain Endocrine: DENIES: Heat/cold intolerance, Polydipsia, Polyuria, Polyphagia Eyes: DENIES: Blurred vision, Diplopia, Eye inflammation, Eye pain, Vision loss , Photosensitivity, Double Vision Ears, nose, mouth, throat: DENIES: Tinnitus, Hearing loss, Vertigo, Nasal discharge, Oral lesions, Throat pain, Hoarseness, Ear Pain, Running Nose, Epistaxis, Sinus Pain, Toothache, Odynophagia Respiratory: DENIES: Apneas, Cough, Snoring, Wheezing, Hemoptysis, Sputum production, Shortness of breath Cardiovascular: COMPLAINS OF: Dyspnea on Exertion, DENIES: Chest pain, Palpitations, Syncope, PND, Lower Extremity Edema, Orthopnea, Claudication Gastrointestinal: DENIES: Abdominal pain, Black stools, Bloody stools, Constipation, Diarrhea, Nausea, Vomiting, Difficulty Swallowing, Anorexia Genitourinary: DENIES: Sexual dysfunction, Urinary frequency, Urinary incontinence, Urgency, Hematuria, Dysuria, Nocturia, Penile Discharge, Testicular Pain, Testicular Swelling Musculoskeletal: DENIES: Joint pain, Muscle aches, Stiffness, Joint Swelling, Back pain, Neck pain Integumentary: DENIES: Abnormal pigmentation, Nail changes, Pruritus, Rash Hematologic/lymphatic: COMPLAINS OF: Bruising Immunologic/allergic: DENIES: Eczema, Urticaria Neurologic: COMPLAINS OF: Headache, Poor Balance, DENIES: Abnormal gait, Localized weakness, Paresthesias, Seizures, Speech Problems, Tremor Psychiatric: DENIES: Anxiety, Confusion, Mood changes, Depression, Hallucinations, Agitation, Suicidal Ideation, Homicidal Ideation, Delusions Past Family Social History Past Medical History alcohol dependency and alcoholic liver failure Past Surgical History Jaw surgery Reported Medications Reviewed in the medical record, recently given antibiotics Ceftin for empiric treatment as per patient Allergies: Coded Allergies: No Known Allergies (Unverified , 12/22/16) Active Ordered Medications Reviewed in the medical record Family History Family history of hypertension and alcohol dependence Social History 6-10 alcoholic drinks daily until a month ago , unemployed Smokes half a pack daily of tobacco Physical Exam Vital Signs Vital Signs Date Time Temp Pulse Resp B/P Pulse Ox O2 Delivery O2 Flow Rate FiO2 12/23/16 08:00 98.7 98 18 146/71 96 12/23/16 04:00 97.9 91 17 140/72 96 12/23/16 00:30 97.4 100 18 145/72 95 12/22/16 23:10 101 12/22/16 22:25 97.3 103 19 146/69 94 12/22/16 22:18 101 18 137/64 99 Room Air 12/22/16 22:16 101 18 99 12/22/16 21:10 100 18 146/60 99 Room Air 12/22/16 19:31 18 99 Room Air 12/22/16 19:04 104 18 100 Room Air 12/22/16 18:54 98.6 107 16 147/80 98 Physical Exam GENERAL: This is a well-nourished, well-developed patient, anxious SKIN: Diffuse ecchymotic areas on both extensor surfaces of the arm and the gluteus and a left flank and bilateral knees HEAD: Atraumatic. Normocephalic. No temporal or scalp tenderness. EYES: Pupils equal round and reactive. Extraocular motions intact. Icteric. No injection or drainage. ENT: Nose without bleeding, purulent drainage or septal hematoma. Throat without erythema, tonsillar hypertrophy or exudate. Uvula midline. Airway patent. NECK: Trachea midline. No JVD or lymphadenopathy. Supple, nontender, no meningeal signs. CARDIOVASCULAR: Regular rate and rhythm without murmurs, gallops, or rubs. RESPIRATORY: Clear to auscultation. Breath sounds equal bilaterally. No wheezes , rales, or rhonchi. GASTROINTESTINAL: Abdomen soft, nontender, mildly distended with protrusion of his umbilicus. No hepato-splenomegaly, or palpable masses. No guarding. MUSCULOSKELETAL: Extremities without clubbing, cyanosis, but there is +2 edema. No joint tenderness, effusion, or edema noted. No calf tenderness. Negative Homans sign bilaterally. NEUROLOGICAL: Awake and alert. Cranial nerves II through XII intact. Motor and sensory grossly within normal limits. Five out of 5 muscle strength in all muscle groups. Normal speech. Laboratory Laboratory Tests Test 12/22/16 12/23/16 12/23/16 19:25 04:00 05:16 Prothrombin Time 29.3 Prothromb Time International 2.5 Ratio Activated Partial 43.3 Thromboplast Time Sodium Level 125 126 Potassium Level 3.4 3.8 Chloride Level 90 92 Carbon Dioxide Level 25.5 27.2 Anion Gap 10 7 Blood Urea Nitrogen 7 8 Creatinine 0.84 0.77 Estimat Glomerular Filtration 107 118 Rate Random Glucose 114 112 Lactic Acid Level 2.9 Calcium Level 8.2 8.1 Total Bilirubin 12.7 11.3 Aspartate Amino Transf 208 174 (AST/SGOT) Alanine Aminotransferase 80 68 (ALT/SGPT) Alkaline Phosphatase 179 145 Ammonia 19 Total Protein 7.8 6.6 Albumin 2.2 1.9 Lipase 278 [place] Level 0.5 White Blood Count 25.6 24.2 Red Blood Count 2.41 2.04 Hemoglobin 9.7 8.3 Hematocrit 28.2 24.0 Mean Corpuscular Volume 117.1 117.6 Mean Corpuscular Hemoglobin 40.2 40.6 Mean Corpuscular Hemoglobin 34.4 34.5 Concent Red Cell Distribution Width 15.2 15.5 Platelet Count 94 90 Mean Platelet Volume 8.3 8.3 Neutrophils (%) (Auto) 80.7 84.0 Lymphocytes (%) (Auto) 9.8 7.8 Monocytes (%) (Auto) 7.8 7.2 Eosinophils (%) (Auto) 1.1 0.6 Basophils (%) (Auto) 0.6 0.4 Neutrophils # (Auto) 20.6 20.4 Lymphocytes # (Auto) 2.5 1.9 Monocytes # (Auto) 2.0 1.7 Eosinophils # (Auto) 0.3 0.1 Basophils # (Auto) 0.2 0.1 CBC Comment AUTO DIFF AUTO DIFF Differential Comment AUTO DIFF AUTO DIFF CONFIRMED CONFIRMED Platelet Estimate LOW LOW Platelet Morphology Comment NORMAL NORMAL Urine Color RASHAD Urine Turbidity CLEAR Urine pH 5.0 Urine Specific [place] 1.023 Urine Protein 30 Urine Glucose (UA) NEG Urine Ketones TRACE Urine Occult Blood LARGE Urine Nitrite POS Urine Bilirubin LARGE Urine Leukocyte Esterase NEG Urine RBC 25-49 Urine WBC 0-2 Urine Squamous Epithelial 6-8 Cells Urine Bacteria NONE Microscopic Urinalysis Comment CULTURE INDICATED Date/Time Procedure Status Source Growth 12/23/16 04:00 Urine Culture Received Urine Clean Catch Pending Result Diagram: 12/23/1651512/23/16515 Imaging Last Impressions Head CT 12/22/161921 Signed Impressions: Service Date/Time: November 19:40 - CONCLUSION: Normal examination. Joseluis Johnson MD Chest X-Ray 12/22/161910 Signed Impressions: Service Date/Time: November 19:30 - CONCLUSION: 1. Minimal basal atelectasis. Heart size mildly enlarged. Joseluis Johnson MD Abdomen/Pelvis CT 12/22/161910 Signed Impressions: Service Date/Time: November 19:44 - CONCLUSION: 1. Moderate ascites in the abdomen and pelvis with questionable liver cirrhosis. No effusions at the lung bases. Minimal basilar lung scarring. Joseluis Johnson MD Assessment and Plan Problem List: (1) Jaundice ICD Code: R17 Status: Acute Plan: Patient with known hepatic failure secondary to chronic alcoholism. He is abstinent now for about a month; he is highly motivated Patient has high meld score and tired is high risk for mortality given his discriminate function. Patient may benefit from prednisolone, will add nadolol and Lasix to his current regimen of Aldactone, lactulose and multivitamins Continue patient education and nutritional support We'll check a vitamin K level and factor VIII, fibrinogen GI consult pending (2) Metabolic encephalopathy ICD Code: G93.41 Status: Acute Plan: Improved, likely due to hyponatremia Continue to monitor fluid balance and watch electrolytes while on diuretics (3) Hyponatremia ICD Code: E87.1 Status: Acute Plan: Likely volume related fluid restriction 1200ml (4) Bleeding ICD Code: R58 Status: Acute Plan: Patient with moderate acute blood loss anemia from multiple areas of ecchymosis. We'll continue with vitamin K for now, follow-up PT Patient also with anemia secondary to liver failure (5) SIRS (systemic inflammatory response syndrome) ICD Code: R65.10 Status: Acute Plan: Empiric Rocephin for patient with elevated heart rate, leukocytosis Chest x-ray, urinalysis unremarkable, blood cultures 2 pending Abdomen nontender Assessment and Plan Patient will need to be admitted to the hospital to continue medical management of acute encephalopathy with evidence of liver failure and evidence of bleeding Code Status full code Discussed Condition With patient Marli RN Physician Certification 2 Midnight Certification Type: Admission for Inpatient Services Order for Inpatient Services The services are ordered in accordance with Medicare regulations or non- Medicare payer requirements, as applicable. In the case of services not specified as inpatient-only, they are appropriately provided as inpatient services in accordance with the 2-midnight benchmark. Estimated LOS (days): 3 3 days is the estimated time the patient will need to remain in the hospital, assuming treatment plan goals are met and no additional complications. Post-Hospital Plan: Home Violette Joyce MD Dec 23, 2016 08:49
[2016-12-23] MEDS ORDERED: PHYTONADIONE 5 MG TAB PO SCH (09:00)
[2016-12-23] MEDS ORDERED: SPIRONOLACTONE 25 MG TAB PO SCH (09:00)
[2016-12-23] MEDS: FUROSEMIDE 20 MG TAB PO SCH (10:08)
[2016-12-23] MEDS: NADOLOL 20 MG TAB PO SCH (10:08)
[2016-12-23] MEDS: prednisoLONE 15 MG ODT TAB PO SCH (10:08)
[2016-12-23 12:39] LABS: FIBRINOGEN LESS THAN 50 mg/dL (227-377)
[2016-12-23] MEDS ORDERED: SODIUM CHLOR 0.9% 250 ML INJ 250 ML IV ONE ×2 (13:00→16:45)
[2016-12-23] MEDS ORDERED: FUROSEMIDE 20 MG/2 ML VIAL IV PRN (13:00)
[2016-12-23] MEDS ORDERED: Vancomycin Consult Pharmacy 1 EA OTHER SCH (13:45)
[2016-12-23] MEDS ORDERED: VANCOMYCIN INJ 1,000 MG in SODIUM CHLOR 0.9% 250 ML INJ 250 ML IV SCH (13:45)
[2016-12-23] MEDS: CEFEPIME INJ 1,000 MG in SODIUM CHLORIDE 0.9% INJ 100 ML IV SCH ×2 (15:24→22:18)
[2016-12-23] MEDS ORDERED: diphenhydrAMINE HCL 25 MG CAP PO PRN (16:45)
--- NOTE | 2016-12-23 16:49 | MB ---
cc: ELICIA CARRANZA MD,CARINA Gage MD DATE OF CONSULTATION 12/23/[address] Carina Joyce. REASON FOR CONSULTATION Liver cirrhosis with ascites, hyponatremia and leukocytosis. HISTORY OF PRESENT ILLNESS Mr. Nixon is a 30-year-old gentleman with previous history of heavy alcohol use. He says five weeks ago he was in the hospital and was told he had liver cirrhosis and was asked to quit drinking alcohol. He says for the last five weeks he has not used any alcohol. He says previous workup for hepatitis was unremarkable. He basically presented with fluid retention and altered mental status. During admission, his labs were consistent with DIC. He is currently in the process of being moved to the intensive care unit. He did have a paracentesis performed recently that apparently did not show any evidence of SBP. REVIEW OF SYSTEMS He is alert and oriented at this time. He is deeply icteric. He has multiple bruising areas on his upper extremities, on his hands, on his chest and also on the upper legs. This was thought to be consistent with DIC. PAST MEDICAL HISTORY 1. Alcohol dependency 2. Alcohol liver cirrhosis. PAST SURGICAL HISTORY Previous jaw surgery. MEDICATIONS On admission. 1. Aldactone 2. Lactulose 3. Folic acid. 4. Protonix. 5. Lasix. ALLERGIES None documented FAMILY HISTORY Noncontributory. SOCIAL HISTORY Heavy alcohol until five weeks ago, still is a smoker. PHYSICAL EXAMINATION GENERAL: A well-nourished man in no apparent distress. VITAL SIGNS: Stable. HEAD/NECK: Icteric sclerae. CHEST: Bilateral air entry. ABDOMEN: Soft, obese, ascites is present. Umbilical hernia. A rash is present on both the upper extremities and on the chest as well. RECTAL: Exam deferred at this time LABORATORY DATA D-dimer of greater than 35. Fibrinogen less than 50, INR 2.5. White cell count 24.2, hemoglobin 8.3, platelets 90,000. Sodium 126, total bilirubin 11.3. IMPRESSION Liver cirrhosis with DIC. RECOMMENDATIONS The patient has been started on prednisone and ceftriaxone as well as vancomycin. Continue Lasix and Aldactone as ordered. A CT of the head is unremarkable. I am recommending a hematology consultation. Hold off on paracentesis at this time due to hyperanticoagulant state. May also benefit from executive director consultation. Overall, prognosis is poor. Dr. Prather will follow over the weekend. Thank you for this referral. MD JOY Hammonds/ /1:52 PM /4:33 PM
[2016-12-23] MEDS ORDERED: VANCOMYCIN INJ 1,350 MG in SODIUM CHLORID 0.9% 500 ML INJ 500 ML IV SCH (17:00)
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
[2016-12-23] MEDS ORDERED: cefTRIAXone INJ 2,000 MG in SODIUM CHLORIDE 0.9% INJ 100 ML IV SCH (20:00)
[2016-12-23] MEDS: VANCOMYCIN INJ 1,350 MG in SODIUM CHLORID 0.9% 500 ML INJ 500 ML IV SCH (22:00)
[2016-12-24] VITALS (48 sets, daily range): BP systolic 116–184; BP diastolic 49–87; PULSE 53–96; RESP 11–52; TEMP 97.9–98.9; O2SAT 93–99
[2016-12-24] MEDS ORDERED: CHLORHEXIDINE GLUCONATE 2 % 1 PACK (2 CLOTHS)(extra cloths) TOPICAL PRN ×2 (05:45→20:45)
[2016-12-24] MEDS: VANCOMYCIN INJ 1,350 MG in SODIUM CHLORID 0.9% 500 ML INJ 500 ML IV SCH ×3 (06:00→21:01)
[2016-12-24 09:00] LABS: CHLORIDE 97 MEQ/L (98-107); POTASSIUM 3.8 MEQ/L (3.5-5.1); SODIUM (NA) 131 MEQ/L (136-145)
[2016-12-24] MEDS: SODIUM CHLORIDE 0.9% FLUSH 10 ML FLUSH IV FLUSH SCH ×2 (09:00→20:02)
[2016-12-24 09:04] LABS: INTERNATIONAL NORMALIZED RATIO 1.8 RATIO; PROTHROMBIN TIME - PATIENT 20.9 SEC (9.8-11.6)
[2016-12-24 09:05] LABS: ANION GAP 8 MEQ/L (5-15); BICARBONATE 26.5 MEQ/L (21.0-32.0); BLOOD UREA NITROGEN 10 MG/DL (7-18)
[2016-12-24 09:08] LABS: ALT (GPT) 59 U/L (12-78); AST (GOT) 146 U/L (15-37); GLOMERULAR FILTRATION RATE 111 ML/MIN (>89)
[2016-12-24 09:09] LABS: TOTAL BILIRUBIN ADULT 11.8 MG/DL (0.2-1.0)
[2016-12-24 09:11] LABS: ALKALINE PHOSPHATASE 136 U/L (45-117)
[2016-12-24] MEDS: LACTULOSE SYRUP 20 GM/30 ML CUP PO SCH ×2 (09:33→20:02)
[2016-12-24] MEDS: THIAMINE HCL 100 MG TAB PO SCH (09:37)
[2016-12-24] MEDS: CEFEPIME INJ 1,000 MG in SODIUM CHLORIDE 0.9% INJ 100 ML IV SCH ×3 (09:37→22:32)
[2016-12-24] MEDS: FUROSEMIDE 20 MG TAB PO SCH (09:37)
[2016-12-24] MEDS: PHYTONADIONE 5 MG TAB PO SCH (09:37)
[2016-12-24] MEDS: FOLIC ACID 1 MG TAB PO SCH (09:37)
[2016-12-24] MEDS: NADOLOL 20 MG TAB PO SCH (09:38)
[2016-12-24] MEDS: prednisoLONE 15 MG ODT TAB PO SCH (09:38)
[2016-12-24] MEDS: PANTOPRAZOLE SOD 40 MG DELAYED RELEASE TAB PO SCH (09:38)
[2016-12-24] MEDS: POTASSIUM CHLORIDE 10 MEQ CONTROLLED RELEASE TAB PO SCH (09:38)
[2016-12-24] MEDS ORDERED: ACETAMINOPHEN 325 MG TAB PO PRN ×2 (10:30→15:15)
[2016-12-24] MEDS ORDERED: diphenhydrAMINE HCL 25 MG CAP PO PRN (10:30)
[2016-12-24] MEDS ORDERED: SODIUM CHLOR 0.9% 250 ML INJ 250 ML IV ONE ×2 (10:30→15:15)
--- NOTE | 2016-12-24 11:58 | HHI.PR ---
Subjective Remarks Patient seen today in follow-up for liver failure and DIC. Overall blood studies are improved Sodium is improved Blood pressure and heart rate are improved. Patient feels mentally clearer I discussed at length with patient regarding his poor overall long-term prognosis and approach the issue of palliative care/hospice with him. He is aware of the gravity of his condition and poor long-term survival Objective Vitals Vital Signs Date Time Temp Pulse Resp B/P Pulse Ox O2 Delivery O2 Flow Rate FiO2 12/24/16 10:00 92 28 163/55 12/24/16 10:00 92 12/24/16 09:00 82 16 161/62 12/24/16 08:00 86 13 169/78 12/24/16 08:00 86 12/24/16 07:00 97.9 66 12 156/65 99 12/24/16 06:01 64 12 148/81 99 12/24/16 06:00 65 12/24/16 05:00 74 15 163/70 99 12/24/16 04:00 77 12/24/16 04:00 98.2 68 17 167/72 99 12/24/16 03:34 18 12/24/16 03:00 96 52 144/66 99 12/24/16 02:00 68 12 154/73 99 12/24/16 02:00 69 12/24/16 01:00 68 17 150/66 98 12/24/16 00:00 98.4 82 29 159/70 98 12/24/16 00:00 92 12/23/16 23:00 70 17 149/64 98 12/23/16 22:00 72 17 115/49 98 12/23/16 22:00 70 12/23/16 21:00 74 14 108/47 98 12/23/16 20:15 98.3 88 18 99 12/23/16 20:00 98.3 74 15 116/60 98 12/23/16 20:00 68 12/23/16 19:45 98.3 68 18 108/68 98 12/23/16 19:00 98.3 66 16 108/58 12/23/16 19:00 66 16 108/58 12/23/16 18:00 98.4 64 18 115/65 12/23/16 18:00 64 12/23/16 17:00 98.5 66 15 113/65 12/23/16 16:00 68 12/23/16 16:00 97.6 68 17 114/62 99 12/23/16 15:00 68 16 109/61 12/23/16 14:15 66 12/23/16 14:06 72 22 114/56 96 12/23/16 12:00 97.2 84 16 134/73 96 I/O 12/23/16 12/23/16 12/23/16 12/24/16 12/24/16 12/24/16 07:00 15:00 23:00 07:00 15:00 23:00 Intake Total 1200 ml 302 ml 1080 ml 660 ml Output Total 500 ml 1000 ml 1500 ml Balance 700 ml 302 ml 80 ml -840 ml Intake Oral 1200 ml 300 ml 280 ml 60 ml IV Total 2 ml 560 ml 600 ml Cryoprecipitate 240 ml Output Urine Total 500 ml 1000 ml 1500 ml # Voids 2 # Bowel Movements 1 2 1 Result Diagram: 12/23/16 0516 12/24/16 0845 Imaging Last Impressions Head CT 12/22/161921 Signed Impressions: Service Date/Time: November 19:40 - CONCLUSION: Normal examination. Joseluis Johnson MD Chest X-Ray 12/22/161910 Signed Impressions: Service Date/Time: November 19:30 - CONCLUSION: 1. Minimal basal atelectasis. Heart size mildly enlarged. Joseluis Johnson MD Abdomen/Pelvis CT 12/22/161910 Signed Impressions: Service Date/Time: November 19:44 - CONCLUSION: 1. Moderate ascites in the abdomen and pelvis with questionable liver cirrhosis. No effusions at the lung bases. Minimal basilar lung scarring. Joseluis Johnson MD Objective Remarks Skin with multiple areas of ecchymoses and jaundice, scleral icterus GENERAL: This is a well-nourished, well-developed patient, jaundiced CARDIOVASCULAR: Regular rate and rhythm without murmurs, gallops, or rubs. RESPIRATORY: Clear to auscultation. Breath sounds equal bilaterally. No wheezes , rales, or rhonchi. GASTROINTESTINAL: Abdomen soft, non-tender, mildly distended. Normal active bowel sounds MUSCULOSKELETAL: Extremities without clubbing, cyanosis, or edema. NEURO: Alert & Oriented x4 to person, place, time, situation. Moves all ext x4 A/P Problem List: (1) Jaundice ICD Code: R17 Status: Acute Plan: Patient with known hepatic failure secondary to chronic alcoholism. He is abstinent now for about a month; he is highly motivated Patient has high meld score and tired is high risk for mortality given his discriminate function. continue prednisolone, nadolol and Lasix to his current regimen of Aldactone, lactulose and multivitamins Continue patient education and nutritional support GI consult appreciated (2) Metabolic encephalopathy ICD Code: G93.41 Status: Resolved Plan: resolved (3) Hyponatremia ICD Code: E87.1 Status: Acute Plan: Improved sodium today Likely volume related fluid restriction 1200ml (4) Bleeding ICD Code: R58 Status: Acute Plan: Patient with moderate acute blood loss anemia from multiple areas of ecchymosis. s/p Vit k, FFP Cryo GI/Hematology eval appreciated (5) SIRS (systemic inflammatory response syndrome) ICD Code: R65.10 Status: Acute Plan: Empiric cefepime/vancomycin for patient with elevated heart rate, leukocytosis Chest x-ray, urinalysis unremarkable, blood cultures 2 negative at 1 day Abdomen nontender Assessment and Plan patient considering palliative care Violette Mittal MD Dec 24, 2016 11:58
--- NOTE | 2016-12-24 14:10 | HHI.GIFU ---
Subjective Remarks Comfortable in bed no pain no bleeding getting ready to eat lunch Objective Vitals I&O Vital Signs Date Time Temp Pulse Resp B/P Pulse Ox O2 Delivery O2 Flow Rate FiO2 12/24/16 13:30 98.5 66 15 134/56 12/24/16 13:15 98.6 66 12 139/56 12/24/16 13:15 66 12 139/56 12/24/16 13:00 64 14 134/64 12/24/16 13:00 98.5 64 14 134/64 12/24/16 12:45 72 12 140/55 12/24/16 12:40 98.4 72 14 140/59 12/24/16 12:30 98.3 74 18 140/59 97 12/24/16 12:29 70 12 140/59 12/24/16 12:01 98.0 78 11 133/49 12/24/16 11:01 66 15 153/53 12/24/16 10:01 92 28 163/55 12/24/16 10:00 92 28 163/55 12/24/16 10:00 92 12/24/16 09:00 82 16 161/62 12/24/16 08:00 86 13 169/78 12/24/16 08:00 86 12/24/16 07:00 97.9 66 12 156/65 99 12/24/16 06:01 64 12 148/81 99 12/24/16 06:00 65 12/24/16 05:00 74 15 163/70 99 12/24/16 04:00 77 12/24/16 04:00 98.2 68 17 167/72 99 12/24/16 03:34 18 12/24/16 03:00 96 52 144/66 99 12/24/16 02:00 68 12 154/73 99 12/24/16 02:00 69 12/24/16 01:00 68 17 150/66 98 12/24/16 00:00 98.4 82 29 159/70 98 12/24/16 00:00 92 12/23/16 23:00 70 17 149/64 98 12/23/16 22:00 72 17 115/49 98 12/23/16 22:00 70 12/23/16 21:00 74 14 108/47 98 12/23/16 20:15 98.3 88 18 99 12/23/16 20:00 98.3 74 15 116/60 98 12/23/16 20:00 68 12/23/16 19:45 98.3 68 18 108/68 98 12/23/16 19:00 98.3 66 16 108/58 12/23/16 19:00 66 16 108/58 12/23/16 18:00 98.4 64 18 115/65 12/23/16 18:00 64 12/23/16 17:00 98.5 66 15 113/65 12/23/16 16:00 68 12/23/16 16:00 97.6 68 17 114/62 99 12/23/16 15:00 68 16 109/61 12/23/16 14:15 66 I/O 12/23/16 12/23/16 12/23/16 12/24/16 12/24/16 12/24/16 07:00 15:00 23:00 07:00 15:00 23:00 Intake Total 1200 ml 302 ml 1080 ml 660 ml Output Total 500 ml 1000 ml 1500 ml Balance 700 ml 302 ml 80 ml -840 ml Intake Oral 1200 ml 300 ml 280 ml 60 ml IV Total 2 ml 560 ml 600 ml Cryoprecipitate 240 ml Output Urine Total 500 ml 1000 ml 1500 ml # Voids 2 # Bowel Movements 1 2 1 Laboratory Laboratory Tests Test 12/23/16 12/24/16 12/24/16 12/24/16 16:42 05:30 08:45 10:26 Blood Bank Comment Fibrinogen 105 Nasal Screen MRSA (PCR) MRSA NOT DETECTED Prothrombin Time 20.9 Prothromb Time International 1.8 Ratio Sodium Level 131 Potassium Level 3.8 Chloride Level 97 Carbon Dioxide Level 26.5 Anion Gap 8 Blood Urea Nitrogen 10 Creatinine 0.81 Estimat Glomerular Filtration 111 Rate Random Glucose 123 Calcium Level 8.3 Total Bilirubin 11.8 Aspartate Amino Transf 146 (AST/SGOT) Alanine Aminotransferase 59 (ALT/SGPT) Alkaline Phosphatase 136 Total Protein 6.4 Albumin 2.0 Date/Time Procedure Status Source Growth 12/23/16 10:15 Aerobic Blood Culture - Preliminary Resulted Blood Peripheral NO GROWTH IN 1 DAY 12/23/16 10:15 Anaerobic Blood Culture - Preliminary Resulted Blood Peripheral NO GROWTH IN 1 DAY 12/23/16 04:00 Urine Culture - Preliminary Resulted Urine Clean Catch NO GROWTH IN 24 HOURS. Imaging Last [address] 12/22/161921 Signed Impressions: Service Date/Time: November 19:40 - CONCLUSION: Normal examination. Joseluis Johnson MD Chest X-Ray 12/22/161910 Signed Impressions: Service Date/Time: , December 22, 2016 19:30 - CONCLUSION: 1. Minimal basal atelectasis. Heart size mildly enlarged. Joseluis Johnson MD Abdomen/Pelvis CT 12/22/161910 Signed Impressions: Service Date/Time: , December 22, 2016 19:44 - CONCLUSION: 1. Moderate ascites in the abdomen and pelvis with questionable liver cirrhosis. No effusions at the lung bases. Minimal basilar lung scarring. Joseluis Johnson MD Physical Exam HEENT: normocephalic; atraumatic; jaundiced. Throat is clear. NECK: Neck is supple, CHEST: Chest is clear to auscultation and percussion. CARDIAC: Regular rate and rhythm with no murmur gallop or rubs. ABDOMEN: Soft, nondistended, nontender; EXTREMITIES: No clubbing, cyanosis, or edema. 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 Assessment and Plan Plan Acute alcoholic hepatitis Coagulopathy Patient advised to quit alcohol Low salt diet Monitor labs Transfuse as needed Patient will require follow-up with GI post discharge Audie Prather MD Dec 24, 2016 14:10
[2016-12-24 14:13] LABS: POTASSIUM 3.9 MEQ/L (3.5-5.1)
[2016-12-24 14:18] LABS: BICARBONATE 28.8 MEQ/L (21.0-32.0); MAGNESIUM 1.9 MG/DL (1.5-2.5)
[2016-12-24 14:22] LABS: BASOPHIL % 0.2 % (0.0-2.0); EOSINOPHIL # 0.1 TH/MM3 (0-0.4); EOSINOPHIL % 0.6 % (0.0-4.0); LYMPH % 5.7 % (9.0-44.0); LYMPHOCYTE # 1.2 TH/MM3 (1.0-4.8); MEAN CELL VOLUME 117.9 FL (80.0-100.0); MEAN CORPUSCULAR HEMOGLOBIN 41.4 PG (27.0-34.0); MEAN CORPUSCULAR HGB CONC 35.1 % (32.0-36.0); MONO % 5.5 % (0.0-8.0); PLATELET COUNT 90 TH/MM3 (150-450); RED BLOOD COUNT 1.63 MIL/MM3 (4.50-5.90); RED CELL DISTRIBUTION WIDTH 15.9 % (11.6-17.2); WHITE BLOOD COUNT 21.5 TH/MM3 (4.0-11.0)
[2016-12-24 14:23] LABS: HEMO FLAGS AUTO DIFF
[2016-12-24 14:25] LABS: HEMATOCRIT 19.3 % (39.0-51.0)
[2016-12-24 15:15] LABS: PLATELET ESTIMATE SMEAR LOW (NORMAL); PLATELET MORPHOLOGY NORMAL (NORMAL); SCAN/DIFF AUTO DIFF CONFIRMED
[2016-12-24] MEDS ORDERED: FUROSEMIDE 20 MG/2 ML VIAL IV ONE (15:15)
--- NOTE | 2016-12-24 16:08 | RADRPT ---
EXAM DATE/TIME: 12/24/2016 15:47 [facility] COMPARISON: CT BRAIN W/O CONTRAST, December 22, 2016, 19:40. INDICATIONS : Altered mental status. RADIATION DOSE: 64.00 CTDIvol (mGy) MEDICAL HISTORY : Cardiovascular disease. Hyponatremia, Ascites, Liver failure, Bipolar, Jaundice SURGICAL HISTORY : Jaw fracture ENCOUNTER: Subsequent ACUITY: 2 days PAIN SCALE: 0/10 LOCATION: cranial TECHNIQUE: Multiple contiguous axial images were obtained of the head. Using automated exposure control and adj ustment of the mA and/or kV according to patient size, radiation dose was kept as low as reasonably a chievable to obtain optimal diagnostic quality images. DICOM format image data is available electro nically for review and comparison. FINDINGS: CEREBRUM: The ventricles are normal for age. No evidence of midline shift, mass lesion, hemorrhage or acute in farction. No extra-axial fluid collections are seen. POSTERIOR FOSSA: The cerebellum and brainstem are intact. The 4th ventricle is midline. The cerebellopontine angle i s unremarkable. EXTRACRANIAL: The visualized portion of the orbits is intact. SKULL: The calvaria is intact. No evidence of skull fracture. CONCLUSION: No acute disease. Josh Oscar MD on December 24, 2016 at 16:06 Board Certified Radiologist. This report was verified electronically.
[2016-12-24] MEDS ORDERED: PHARMACY ORDERED LAB ONE ×2 (16:45→21:45)
[2016-12-25] VITALS (17 sets, daily range): BP systolic 114–162; BP diastolic 49–88; PULSE 62–96; RESP 18–20; TEMP 97.1–98.8; O2SAT 94–99
[2016-12-25] MEDS: CHLORHEXIDINE GLUCONATE 2 % 1 PACK (2 CLOTHS)(taper/protocol) TOPICAL SCH ×2 (04:00)
[2016-12-25] MEDS: VANCOMYCIN INJ 1,350 MG in SODIUM CHLORID 0.9% 500 ML INJ 500 ML IV SCH (05:03)
[2016-12-25 06:20] LABS: BASOPHIL % 0.2 % (0.0-2.0); EOSINOPHIL % 0.2 % (0.0-4.0); LYMPH % 1.4 % (9.0-44.0); LYMPHOCYTE # 0.3 TH/MM3 (1.0-4.8); MEAN CELL VOLUME 115.4 FL (80.0-100.0); MEAN CORPUSCULAR HEMOGLOBIN 40.2 PG (27.0-34.0); MEAN CORPUSCULAR HGB CONC 34.8 % (32.0-36.0); MONO % 0.2 % (0.0-8.0); PLATELET COUNT 98 TH/MM3 (150-450); RED CELL DISTRIBUTION WIDTH 20.1 % (11.6-17.2); WHITE BLOOD COUNT 23.3 TH/MM3 (4.0-11.0)
[2016-12-25 06:29] LABS: CHLORIDE 99 MEQ/L (98-107); POTASSIUM 4.2 MEQ/L (3.5-5.1); SODIUM (NA) 134 MEQ/L (136-145)
[2016-12-25 06:33] LABS: ANION GAP 7 MEQ/L (5-15); BICARBONATE 27.7 MEQ/L (21.0-32.0); BLOOD UREA NITROGEN 10 MG/DL (7-18)
[2016-12-25 06:36] LABS: ALT (GPT) 58 U/L (12-78); AST (GOT) 152 U/L (15-37); GLOMERULAR FILTRATION RATE 107 ML/MIN (>89)
[2016-12-25 06:39] LABS: APTT (PATIENT) 34.9 SEC (24.3-30.1); HEMO FLAGS AUTO DIFF; INTERNATIONAL NORMALIZED RATIO 1.7 RATIO; PROTHROMBIN TIME - PATIENT 19.7 SEC (9.8-11.6)
[2016-12-25 07:01] LABS: PLATELET ESTIMATE SMEAR LOW (NORMAL); PLATELET MORPHOLOGY NORMAL (NORMAL); SCAN/DIFF AUTO DIFF CONFIRMED
[2016-12-25 07:10] LABS: ALKALINE PHOSPHATASE 143 U/L (45-117); TOTAL BILIRUBIN ADULT 15.4 MG/DL (0.2-1.0)
[2016-12-25] MEDS: CEFEPIME INJ 1,000 MG in SODIUM CHLORIDE 0.9% INJ 100 ML IV SCH ×3 (07:21→23:42)
[2016-12-25] MEDS: SODIUM CHLORIDE 0.9% FLUSH 10 ML FLUSH IV FLUSH SCH ×2 (09:00→23:43)
--- NOTE | 2016-12-25 09:08 | HHI.PR ---
Subjective Remarks Patient seen and evaluated today in follow-up for end-stage liver disease and for metabolic encephalopathy. Doing better today. Son name is improved, hemoglobin is still low but improved after transfusion. No new events overnight. 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 Objective Vitals Vital Signs Date Time Temp Pulse Resp B/P Pulse Ox O2 Delivery O2 Flow Rate FiO2 12/25/16 06:00 88 20 130/67 12/25/16 06:00 88 12/25/16 05:03 20 12/25/16 05:00 78 12/25/16 05:00 78 20 123/60 12/25/16 04:00 98.2 66 20 114/54 94 12/25/16 04:00 66 12/25/16 03:00 96 12/25/16 03:00 96 20 116/53 12/25/16 02:00 68 20 116/49 12/25/16 02:00 68 12/25/16 01:00 70 12/25/16 01:00 70 20 126/60 12/25/16 00:00 98.3 68 20 126/58 96 12/25/16 00:00 68 12/24/16 23:00 80 12/24/16 23:00 80 20 119/53 12/24/16 22:00 64 12/24/16 22:00 64 20 133/62 12/24/16 21:00 64 20 123/62 12/24/16 21:00 64 12/24/16 20:40 98.4 65 20 123/62 12/24/16 20:00 66 20 133/72 12/24/16 20:00 66 12/24/16 19:13 98.9 82 20 116/54 93 12/24/16 19:13 74 16 116/54 12/24/16 19:07 76 20 123/58 12/24/16 19:00 70 12/24/16 18:52 70 21 121/53 12/24/16 18:50 74 18 12/24/16 18:45 53 20 12/24/16 18:37 74 21 131/73 12/24/16 18:30 98.8 82 20 131/73 12/24/16 18:24 76 23 135/58 12/24/16 18:22 70 19 166/77 12/24/16 18:15 68 22 165/76 12/24/16 18:15 98.7 68 22 165/76 95 12/24/16 18:07 74 15 160/83 12/24/16 18:05 98.3 80 23 160/83 99 12/24/16 18:00 82 12/24/16 18:00 82 16 156/66 12/24/16 17:56 78 11 180/75 12/24/16 17:00 72 12 184/64 12/24/16 16:00 78 12/24/16 16:00 98.3 78 18 152/66 12/24/16 15:44 78 18 152/66 12/24/16 15:00 78 18 152/66 12/24/16 14:00 84 12/24/16 14:00 84 17 164/87 12/24/16 13:30 98.5 66 15 134/56 12/24/16 13:15 98.6 66 12 139/56 12/24/16 13:15 66 12 139/56 12/24/16 13:00 64 14 134/64 12/24/16 13:00 98.5 64 14 134/64 12/24/16 12:45 72 12 140/55 12/24/16 12:40 98.4 72 14 140/59 12/24/16 12:30 98.3 74 18 140/59 97 12/24/16 12:29 70 12 140/59 12/24/16 12:01 98.0 78 11 133/49 12/24/16 12:00 80 12/24/16 11:01 66 15 153/53 12/24/16 10:01 92 28 163/55 12/24/16 10:00 92 28 163/55 12/24/16 10:00 92 I/O 12/24/16 12/24/16 12/24/16 12/25/16 12/25/16 12/25/16 07:00 15:00 23:00 07:00 15:00 23:00 Intake Total 660 ml 600 ml 1000 ml 700 ml Output Total 1500 ml 675 ml 550 ml 1000 ml Balance -840 ml -75 ml 450 ml -300 ml Intake Oral 60 ml 600 ml 50 ml 100 ml IV Total 600 ml 650 ml 600 ml Packed Cells 300 ml Output Urine Total 1500 ml 675 ml 550 ml 1000 ml Stool Total 0 ml Emesis 0 ml 0 ml # Bowel Movements 1 1 6 Result Diagram: 12/25/16 0610 12/25/16 0610 Objective Remarks Skin with multiple areas of ecchymoses and jaundice, scleral icterus GENERAL: This is a well-nourished, well-developed patient, jaundiced CARDIOVASCULAR: Regular rate and rhythm without murmurs, gallops, or rubs. RESPIRATORY: Clear to auscultation. Breath sounds equal bilaterally. No wheezes , rales, or rhonchi. GASTROINTESTINAL: Abdomen soft, non-tender, mildly distended. Normal active bowel sounds MUSCULOSKELETAL: Extremities without clubbing, cyanosis, or edema. NEURO: Alert & Oriented x4 to person, place, time, situation. Moves all ext x4 A/P Problem List: (1) Jaundice ICD Code: R17 Status: Acute Plan: continue prednisolone, nadolol and Lasix to his current regimen of Aldactone, lactulose and multivitamins Continue patient education and nutritional support GI consult appreciated (2) Metabolic encephalopathy ICD Code: G93.41 Status: Resolved Plan: Family intermittent CT of the head yesterday was unremarkable however his ammonia level was slightly elevated. This is improved (3) Hyponatremia ICD Code: E87.1 Status: Acute Plan: Improved sodium Likely volume related fluid restriction 1200ml (4) Bleeding ICD Code: R58 Status: Acute Plan: Patient with moderate acute blood loss anemia from multiple areas of ecchymosis. Transfuse 1 unit of packed red blood cells again today s/p Vit k, FFP Cryo GI/Hematology eval appreciated (5) SIRS (systemic inflammatory response syndrome) ICD Code: R65.10 Status: Acute Plan: Empiric cefepime/vancomycin for patient with elevated heart rate, leukocytosis Chest x-ray, urinalysis unremarkable, blood cultures 2 negative at 2 day Abdomen nontender Assessment and Plan patient considering palliative care Violette Mittal MD Dec 25, 2016 09:08
[2016-12-25] MEDS: prednisoLONE 15 MG ODT TAB PO SCH (09:09)
[2016-12-25] MEDS: NADOLOL 20 MG TAB PO SCH (09:09)
[2016-12-25] MEDS: POTASSIUM CHLORIDE 10 MEQ CONTROLLED RELEASE TAB PO SCH (09:09)
[2016-12-25] MEDS: FOLIC ACID 1 MG TAB PO SCH (09:09)
[2016-12-25] MEDS: PANTOPRAZOLE SOD 40 MG DELAYED RELEASE TAB PO SCH (09:09)
[2016-12-25] MEDS: PHYTONADIONE 5 MG TAB PO SCH (09:09)
[2016-12-25] MEDS: LACTULOSE SYRUP 20 GM/30 ML CUP PO SCH ×2 (09:09→20:33)
[2016-12-25] MEDS: FUROSEMIDE 20 MG TAB PO SCH (09:09)
[2016-12-25] MEDS: THIAMINE HCL 100 MG TAB PO SCH (09:09)
[2016-12-25] MEDS ORDERED: SODIUM CHLOR 0.9% 250 ML INJ 250 ML IV ONE (09:15)
[2016-12-25] MEDS ORDERED: FUROSEMIDE 20 MG/2 ML VIAL IV ONE (09:15)
--- NOTE | 2016-12-25 14:25 | HHI.GIFU ---
Subjective Remarks Comfortable in bed No new complaints No blood or bleeding Objective Vitals I&O Vital Signs Date Time Temp Pulse Resp B/P Pulse Ox O2 Delivery O2 Flow Rate FiO2 12/25/16 13:15 97.1 63 18 119/62 12/25/16 13:15 97.3 67 20 119/62 97 12/25/16 12:30 97.6 63 18 124/70 12/25/16 11:15 97.8 69 20 131/72 98 12/25/16 10:30 18 12/25/16 08:00 98.3 78 18 124/60 99 12/25/16 06:00 88 20 130/67 12/25/16 06:00 88 12/25/16 05:00 78 12/25/16 05:00 78 20 123/60 12/25/16 04:00 98.2 66 20 114/54 94 12/25/16 04:00 66 12/25/16 03:00 96 12/25/16 03:00 96 20 116/53 12/25/16 02:00 68 20 116/49 12/25/16 02:00 68 12/25/16 01:00 70 12/25/16 01:00 70 20 126/60 12/25/16 00:00 98.3 68 20 126/58 96 12/25/16 00:00 68 12/24/16 23:00 80 12/24/16 23:00 80 20 119/53 12/24/16 22:00 64 12/24/16 22:00 64 20 133/62 12/24/16 21:00 64 20 123/62 12/24/16 21:00 64 12/24/16 20:40 98.4 65 20 123/62 12/24/16 20:00 66 20 133/72 12/24/16 20:00 66 12/24/16 19:13 98.9 82 20 116/54 93 12/24/16 19:13 74 16 116/54 12/24/16 19:07 76 20 123/58 12/24/16 19:00 70 12/24/16 18:52 70 21 121/53 12/24/16 18:50 74 18 12/24/16 18:45 53 20 12/24/16 18:37 74 21 131/73 12/24/16 18:30 98.8 82 20 131/73 12/24/16 18:24 76 23 135/58 12/24/16 18:22 70 19 166/77 12/24/16 18:15 68 22 165/76 12/24/16 18:15 98.7 68 22 165/76 95 12/24/16 18:07 74 15 160/83 12/24/16 18:05 98.3 80 23 160/83 99 12/24/16 18:00 82 12/24/16 18:00 82 16 156/66 12/24/16 17:56 78 11 180/75 12/24/16 17:00 72 12 184/64 12/24/16 16:00 78 12/24/16 16:00 98.3 78 18 152/66 12/24/16 15:44 78 18 152/66 12/24/16 15:00 78 18 152/66 I/O 12/24/16 12/24/16 12/24/16 12/25/16 12/25/16 12/25/16 06:59 14:59 22:59 06:59 14:59 22:59 Intake Total 660 ml 600 ml 1700 ml 360 ml Output Total 1500 ml 675 ml 1550 ml Balance -840 ml -75 ml 150 ml 360 ml Intake Oral 60 ml 600 ml 150 ml 360 ml IV Total 600 ml 1250 ml Packed Cells 300 ml Output Urine Total 1500 ml 675 ml 1550 ml Stool Total 0 ml Emesis 0 ml # Voids 2 # Bowel Movements 1 7 2 Laboratory Laboratory Tests Test 12/24/16 12/25/16 12/25/16 21:00 06:10 09:04 Vancomycin Level Trough 20.7 White Blood Count 23.3 Red Blood Count 1.90 Hemoglobin 7.6 Hematocrit 22.0 Mean Corpuscular Volume 115.4 Mean Corpuscular Hemoglobin 40.2 Mean Corpuscular Hemoglobin 34.8 Concent Red Cell Distribution Width 20.1 Platelet Count 98 Mean Platelet Volume 7.9 Neutrophils (%) (Auto) 98.0 Lymphocytes (%) (Auto) 1.4 Monocytes (%) (Auto) 0.2 Eosinophils (%) (Auto) 0.2 Basophils (%) (Auto) 0.2 Neutrophils # (Auto) 23.0 Lymphocytes # (Auto) 0.3 Monocytes # (Auto) 0.0 Eosinophils # (Auto) 0.0 Basophils # (Auto) 0.0 CBC Comment AUTO DIFF Differential Comment AUTO DIFF CONFIRMED Platelet Estimate LOW Platelet Morphology Comment NORMAL Prothrombin Time 19.7 Prothromb Time International 1.7 Ratio Activated Partial 34.9 Thromboplast Time Fibrinogen 119 Sodium Level 134 Potassium Level 4.2 Chloride Level 99 Carbon Dioxide Level 27.7 Anion Gap 7 Blood Urea Nitrogen 10 Creatinine 0.83 Estimat Glomerular Filtration 107 Rate Random Glucose 98 Calcium Level 7.9 Total Bilirubin 15.4 Aspartate Amino Transf 152 (AST/SGOT) Alanine Aminotransferase 58 (ALT/SGPT) Alkaline Phosphatase 143 Ammonia 22 Total Protein 6.6 Albumin 2.1 Blood Type A POSITIVE Crossmatch Leukocyte-Reduced Red Blood Cells Blood Bank Comment Date/Time Procedure Status Source Growth 12/23/16 10:15 Aerobic Blood Culture - Preliminary Resulted Blood Peripheral NO GROWTH IN 2 DAYS 12/23/16 10:15 Anaerobic Blood Culture - Preliminary Resulted Blood Peripheral NO GROWTH IN 2 DAYS 12/23/16 04:00 Urine Culture - Final Complete Urine Clean Catch NO GROWTH IN 48 HOURS. Imaging Last [address] 12/24/16 1303 Signed Impressions: Service Date/Time: Saturday, December 24, 2016 15:47 - CONCLUSION: No acute disease. Josh Oscar MD Physical Exam HEENT: normocephalic; atraumatic; jaundiced. Throat is clear. NECK: Neck is supple, CHEST: Chest is clear to auscultation and percussion. CARDIAC: Regular rate and rhythm with no murmur gallop or rubs. ABDOMEN: Soft, nondistended, nontender; EXTREMITIES: No clubbing, cyanosis, or edema. 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 Assessment and Plan Plan Acute alcoholic hepatitis Coagulopathy Worsening anemia with no obvious bleeding Patient advised to quit alcohol Low salt diet Monitor labs Transfuse as needed Patient will require endoscopy at some point but will first await resolution of coagulopathy Patient will require follow-up with GI post discharge Audie Prather MD Dec 25, 2016 14:25
[2016-12-25] MEDS: VANCOMYCIN INJ 1,750 MG in SODIUM CHLORID 0.9% 500 ML INJ 500 ML IV SCH (17:43)
[2016-12-26] MEDS: SODIUM CHLORIDE 0.9% FLUSH 10 ML FLUSH IV FLUSH PRN ×2 (00:52→06:11)
--- NOTE | 2016-12-26 03:13 | PD ---
Physical Exam Date Seen by Provider: Dec 26, 2016 Time Seen by Provider: 02:30 Narrative I was called to the patient's room on this inpatient due to bleeding from the right forehead area, where there was a small wound. Patient is admitted for coagulopathy and has been getting FFP's and blood transfusions. Patient's nurse was not able to stop the bleeding despite applying pressure to the area. On if show evaluation, there appears to be a briskly bleeding spot above the right eyebrow. I have attempted pressure without improvement in bleeding. Procedure: At this point, 1 cc of 1% lidocaine with epinephrine was placed in the area. Two figure 8 sutures were placed in the area around the bleeding site with slowing of bleeding. Quick clot was placed on the area and pressure was applied. An bleeding stopped. 2 x 2 gauze was placed in the area and pressure dressing was placed with [place] bandage. I have discussed with nurse patient's need for further FFP's and platelets and need for checking of H&H. Nurse states that she will call admitting doctor for further orders. She is to call us if bleeding occurs over the [place] bandage. Data Data Last Documented VS Vital Signs Date Time Temp Pulse Resp B/P Pulse Ox O2 Delivery O2 Flow Rate FiO2 12/22/16 19:31 18 99 Room Air 12/22/16 19:04 104 12/22/16 18:54 98.6 147/80 Orders Complete Blood Count With Diff (12/22/16 19:11) Comprehensive Metabolic Panel (12/22/16 19:11) Lipase (12/22/16 19:11) Lactic Acid (12/22/16 19:11) Prothrombin Time / Inr (Pt) (12/22/16 19:11) Act Partial Throm Time (Ptt) (12/22/16 19:11) Urinalysis - C+S If Indicated (12/22/16 19:11) Ct Abd/Pel W/O Iv Contrast (12/22/16 19:11) Iv Access Insert/Monitor (12/22/16 19:11) Ecg Monitoring (12/22/16 19:11) Oximetry (12/22/16 19:11) NPO (12/22/16 19:11) Sodium Chloride 0.9% Flush (Ns Flush) (12/22/16 19:15) [place] (Li) (12/22/16 19:11) Ammonia (12/22/16 19:11) Chest, Single Ap (12/22/16 19:11) Ct Brain W/O Iv Contrast(Rout) (12/22/16 19:22) Ceftriaxone Inj (Rocephin Inj) (12/22/16 20:00) Admit Order (Ed Use Only) (12/22/16 20:49) Labs Laboratory Tests Test 12/22/16 19:25 Prothrombin Time 29.3 SEC Prothromb Time International 2.5 RATIO Ratio Activated Partial 43.3 SEC Thromboplast Time Sodium Level 125 MEQ/L Potassium Level 3.4 MEQ/L Chloride Level 90 MEQ/L Carbon Dioxide Level 25.5 MEQ/L Anion Gap 10 MEQ/L Blood Urea Nitrogen 7 MG/DL Creatinine 0.84 MG/DL Estimat Glomerular Filtration 107 ML/MIN Rate Random Glucose 114 MG/DL Lactic Acid Level 2.9 mmol/L Calcium Level 8.2 MG/DL Total Bilirubin 12.7 MG/DL Aspartate Amino Transf 208 U/L (AST/SGOT) Alanine Aminotransferase 80 U/L (ALT/SGPT) Alkaline Phosphatase 179 U/L Ammonia 19 MCMOL/L Total Protein 7.8 GM/DL Albumin 2.2 GM/DL Lipase 278 U/L [place] Level 0.5 MEQ/L White Blood Count 25.6 TH/MM3 Red Blood Count 2.41 MIL/MM3 Hemoglobin 9.7 GM/DL Hematocrit 28.2 % Mean Corpuscular Volume 117.1 FL Mean Corpuscular Hemoglobin 40.2 PG Mean Corpuscular Hemoglobin 34.4 % Concent Red Cell Distribution Width 15.2 % Platelet Count 94 TH/MM3 Mean Platelet Volume 8.3 FL Neutrophils (%) (Auto) 80.7 % Lymphocytes (%) (Auto) 9.8 % Monocytes (%) (Auto) 7.8 % Eosinophils (%) (Auto) 1.1 % Basophils (%) (Auto) 0.6 % Neutrophils # (Auto) 20.6 TH/MM3 Lymphocytes # (Auto) 2.5 TH/MM3 Monocytes # (Auto) 2.0 TH/MM3 Eosinophils # (Auto) 0.3 TH/MM3 Basophils # (Auto) 0.2 TH/MM3 CBC Comment AUTO DIFF Differential Comment AUTO DIFF CONFIRMED Platelet Estimate LOW Platelet Morphology Comment NORMAL MDM Medical Record Reviewed: Yes Supervised Visit with [facility]: No Diagnosis Primary Impression: Puncture wound of eyebrow with complication Additional Impressions: Coagulopathy Bleeding Arielle Gonzales MD Dec 26, 2016 03:13
[2016-12-26 03:55] LABS: AUTOMATED NEUTROPHIL # 18.8 TH/MM3 (1.8-7.7); BASOPHIL # 0.2 TH/MM3 (0-0.2); BASOPHIL % 0.8 % (0.0-2.0); EOSINOPHIL # 0.3 TH/MM3 (0-0.4); EOSINOPHIL % 1.2 % (0.0-4.0); HEMATOCRIT 25.8 % (39.0-51.0); LYMPH % 6.7 % (9.0-44.0); LYMPHOCYTE # 1.5 TH/MM3 (1.0-4.8); MEAN CELL VOLUME 112.4 FL (80.0-100.0); MEAN CORPUSCULAR HEMOGLOBIN 38.4 PG (27.0-34.0); MEAN CORPUSCULAR HGB CONC 34.2 % (32.0-36.0); MONO % 6.1 % (0.0-8.0); NEUT % 85.2 % (16.0-70.0); PLATELET COUNT 95 TH/MM3 (150-450); RED BLOOD COUNT 2.29 MIL/MM3 (4.50-5.90); RED CELL DISTRIBUTION WIDTH 23.6 % (11.6-17.2); WHITE BLOOD COUNT 22.1 TH/MM3 (4.0-11.0)
[2016-12-26 03:57] LABS: HEMO FLAGS AUTO DIFF
[2016-12-26] MEDS: CHLORHEXIDINE GLUCONATE 2 % 1 PACK (2 CLOTHS)(taper/protocol) TOPICAL SCH ×2 (04:00)
[2016-12-26 04:10] LABS: INTERNATIONAL NORMALIZED RATIO 1.9 RATIO; PROTHROMBIN TIME - PATIENT 21.6 SEC (9.8-11.6)
[2016-12-26 04:31] LABS: KERATOCYTES OCC (NORMAL)
[2016-12-26 04:32] LABS: PLATELET ESTIMATE SMEAR LOW (NORMAL); PLATELET MORPHOLOGY NORMAL (NORMAL); SCAN/DIFF AUTO DIFF CONFIRMED
[2016-12-26] MEDS: VANCOMYCIN INJ 1,750 MG in SODIUM CHLORID 0.9% 500 ML INJ 500 ML IV SCH ×2 (06:10→18:09)
[2016-12-26] MEDS: CEFEPIME INJ 1,000 MG in SODIUM CHLORIDE 0.9% INJ 100 ML IV SCH ×3 (06:10→22:33)
[2016-12-26] MEDS ORDERED: SODIUM CHLOR 0.9% 250 ML INJ 250 ML IV ONE ×4 (07:15→08:30)
[2016-12-26] MEDS ORDERED: diphenhydrAMINE HCL 25 MG CAP PO PRN (07:15)
[2016-12-26 08:00] VITALS: BP 147/74; PULSE 76; RESP 18; TEMP 97.6; O2SAT 98
[2016-12-26] MEDS: SODIUM CHLORIDE 0.9% FLUSH 10 ML FLUSH IV FLUSH SCH ×2 (09:00→20:30)
[2016-12-26] MEDS: LACTULOSE SYRUP 20 GM/30 ML CUP PO SCH ×2 (09:02→20:31)
[2016-12-26] MEDS: THIAMINE HCL 100 MG TAB PO SCH (09:02)
[2016-12-26] MEDS: POTASSIUM CHLORIDE 10 MEQ CONTROLLED RELEASE TAB PO SCH (09:02)
[2016-12-26] MEDS: FUROSEMIDE 20 MG TAB PO SCH (09:02)
[2016-12-26] MEDS: PANTOPRAZOLE SOD 40 MG DELAYED RELEASE TAB PO SCH (09:02)
[2016-12-26] MEDS: FOLIC ACID 1 MG TAB PO SCH (09:02)
[2016-12-26] MEDS: NADOLOL 20 MG TAB PO SCH (09:03)
[2016-12-26] MEDS: prednisoLONE 15 MG ODT TAB PO SCH (09:03)
[2016-12-26 09:41] VITALS: BP 128/75; PULSE 87; RESP 16; TEMP 98.1; O2SAT 98
--- NOTE | 2016-12-26 10:17 | HHI.GIFU ---
Subjective Remarks patient has bleeding from a wound in his head, , no new complains, still; jaundice Objective Vitals I&O Vital Signs Date Time Temp Pulse Resp B/P Pulse Ox O2 Delivery O2 Flow Rate FiO2 12/26/16 09:41 98.1 87 16 128/75 98 12/26/16 08:00 97.6 76 18 147/74 98 12/26/16 04:00 12/25/16 23:34 97.9 82 20 153/88 98 12/25/16 20:00 98.8 87 18 141/71 95 12/25/16 16:00 97.5 64 20 141/73 98 12/25/16 15:30 97.3 66 18 131/74 12/25/16 14:15 97.5 64 18 131/74 94 12/25/16 13:15 97.1 63 18 119/62 12/25/16 13:15 97.3 67 20 119/62 97 12/25/16 12:30 97.6 63 18 124/70 12/25/16 11:15 97.8 69 20 131/72 98 12/25/16 10:30 18 I/O 12/25/16 12/25/16 12/25/16 12/26/16 12/26/16 12/26/16 07:00 15:00 23:00 07:00 15:00 23:00 Intake Total 700 ml 360 ml 600 ml 485 ml Output Total 1000 ml 500 ml Balance -300 ml 360 ml 100 ml 485 ml Intake Oral 100 ml 360 ml 350 ml IV Total 600 ml 485 ml Packed Cells 250 ml Output Urine Total 1000 ml 500 ml Emesis 0 ml # Voids 3 4 2 # Bowel Movements 6 2 1 3 Laboratory Laboratory Tests Test 12/26/16 12/26/16 03:30 07:09 White Blood Count 22.1 Red Blood Count 2.29 Hemoglobin 8.8 Hematocrit 25.8 Mean Corpuscular Volume 112.4 Mean Corpuscular Hemoglobin 38.4 Mean Corpuscular Hemoglobin 34.2 Concent Red Cell Distribution Width 23.6 Platelet Count 95 Mean Platelet Volume 7.4 Neutrophils (%) (Auto) 85.2 Lymphocytes (%) (Auto) 6.7 Monocytes (%) (Auto) 6.1 Eosinophils (%) (Auto) 1.2 Basophils (%) (Auto) 0.8 Neutrophils # (Auto) 18.8 Lymphocytes # (Auto) 1.5 Monocytes # (Auto) 1.3 Eosinophils # (Auto) 0.3 Basophils # (Auto) 0.2 CBC Comment AUTO DIFF Differential Comment AUTO DIFF CONFIRMED Platelet Estimate LOW Platelet Morphology Comment NORMAL Ovalocytes Keratocytes OCC Prothrombin Time 21.6 Prothromb Time International 1.9 Ratio Fibrinogen 94 Blood Bank Comment Date/Time Procedure Status Source Growth 12/23/16 10:15 Aerobic Blood Culture - Preliminary Resulted Blood Peripheral NO GROWTH IN 2 DAYS 12/23/16 10:15 Anaerobic Blood Culture - Preliminary Resulted Blood Peripheral NO GROWTH IN 2 DAYS 12/23/16 04:00 Urine Culture - Final Complete Urine Clean Catch NO GROWTH IN 48 HOURS. Physical Exam HEENT: normocephalic; atraumatic; jaundiced. Throat is clear., sutured wound NECK: Neck is supple, CHEST: Chest is clear to auscultation and percussion. CARDIAC: Regular rate and rhythm with no murmur gallop or rubs. ABDOMEN: Soft, nondistended, nontender; EXTREMITIES: No clubbing, cyanosis, or edema. MAIN LINE STATION ENGINEER: No focal deficits; alert and oriented times three. Assessment and Plan Plan Acute alcoholic hepatitis Coagulopathy HGB stable no obvious bleeding Patient advised to quit alcohol Low salt diet Monitor labs Transfuse as needed Patient will require endoscopy at some point but will first await resolution of coagulopathy Patient wants to go to [place] to be considered for TXP. Elva Alas MD Dec 26, 2016 10:17
--- NOTE | 2016-12-26 10:37 | HHI.PR ---
Subjective Remarks Patient seen in follow-up for liver failure and DIC. Care plan discussed with nursing team in room and with plastic welder. Overall appears to be improving. No further mental status changes. Sodium improved and care plan discussed with patient at length. Objective Vitals Vital Signs Date Time Temp Pulse Resp B/P Pulse Ox O2 Delivery O2 Flow Rate FiO2 12/26/16 09:41 98.1 87 16 128/75 98 12/26/16 08:00 97.6 76 18 147/74 98 12/26/16 04:00 12/25/16 23:34 97.9 82 20 153/88 98 12/25/16 20:00 98.8 87 18 141/71 95 12/25/16 16:00 97.5 64 20 141/73 98 12/25/16 15:30 97.3 66 18 131/74 12/25/16 14:15 97.5 64 18 131/74 94 12/25/16 13:15 97.1 63 18 119/62 12/25/16 13:15 97.3 67 20 119/62 97 12/25/16 12:30 97.6 63 18 124/70 12/25/16 11:15 97.8 69 20 131/72 98 12/25/16 10:30 18 I/O 12/25/16 12/25/16 12/25/16 12/26/16 12/26/16 12/26/16 07:00 15:00 23:00 07:00 15:00 23:00 Intake Total 700 ml 360 ml 600 ml 485 ml Output Total 1000 ml 500 ml Balance -300 ml 360 ml 100 ml 485 ml Intake Oral 100 ml 360 ml 350 ml IV Total 600 ml 485 ml Packed Cells 250 ml Output Urine Total 1000 ml 500 ml Emesis 0 ml # Voids 3 4 2 # Bowel Movements 6 2 1 3 Result Diagram: 12/26/16 0330 12/25/16 0610 Imaging Last Impressions Head CT 12/24/16 1303 Signed Impressions: Service Date/Time: Saturday, December 24, 2016 15:47 - CONCLUSION: No acute disease. Josh Oscar MD Chest X-Ray 12/22/16 1911 Signed Impressions: Service Date/Time: November 19:30 - CONCLUSION: 1. Minimal basal atelectasis. Heart size mildly enlarged. Joseluis Johnson MD Abdomen/Pelvis CT 12/22/16 191 Signed Impressions: Service Date/Time: November 19:44 - CONCLUSION: 1. Moderate ascites in the abdomen and pelvis with questionable liver cirrhosis. No effusions at the lung bases. Minimal basilar lung scarring. Joseluis Johnson MD Objective Remarks Skin with multiple but improved areas of ecchymoses and jaundice, scleral icterus GENERAL: This is a well-nourished, well-developed patient CARDIOVASCULAR: Regular rate and rhythm without murmurs, gallops, or rubs. RESPIRATORY: Clear to auscultation. Breath sounds equal bilaterally. No wheezes , rales, or rhonchi. GASTROINTESTINAL: Abdomen soft, non-tender, mildly distended. Normal active bowel sounds MUSCULOSKELETAL: Extremities without clubbing, cyanosis, or edema. NEURO: Alert & Oriented x4 to person, place, time, situation. Moves all ext x4 A/P Problem List: (1) Jaundice ICD Code: R17 Status: Acute Plan: Due to alcohol related Liver failure continue prednisolone, nadolol and Lasix, Aldactone, lactulose and multivitamins Continue patient education and nutritional support GI consult appreciated (2) Hyponatremia ICD Code: E87.1 Status: Acute Plan: Improved sodium Likely volume related fluid restriction 1200ml (3) Bleeding ICD Code: R58 Status: Acute Plan: Chronic thrombocytopenia stable Patient with moderate acute blood loss anemia from multiple areas of ecchymosis. Hg improved after transfusion Dx: DIC and patient s/p Vit k, FFP Cryo GI/Hematology eval appreciated (4) SIRS (systemic inflammatory response syndrome) ICD Code: R65.10 Status: Acute Plan: Empiric cefepime/vancomycin for patient with elevated heart rate, leukocytosis Chest x-ray, urinalysis unremarkable, blood cultures 2 negative at 3 days, Abdomen nontender Violette Joyce MD Dec 26, 2016 10:37
[2016-12-26 11:41] VITALS: BP 125/73; PULSE 77; RESP 16; TEMP 97; O2SAT 98
[2016-12-26 12:00] VITALS: BP 129/73; PULSE 95; RESP 17; TEMP 97.5; O2SAT 95
[2016-12-26] MEDS ORDERED: PHARMACY ORDERED LAB ONE (17:45)
--- NOTE | 2016-12-26 18:24 | PD.ONC.PN ---
Subjective Subjective Remarks Patient seen and examined, vital signs, labs, medications and transfusion history reviewed. Overnight events reviewed: Patient had a rebleed from the right forehead lesion. This was dressed tightly and hemostasis was achieved. Overall, the patient tells me he feels much better, his bruising is resolving over his arms and legs but ox and back. Objective Data Date Time Temp Pulse Resp B/P Pulse Ox O2 Delivery O2 Flow Rate FiO2 12/26/16 15:40 20 12/26/16 12:00 97.5 95 17 129/73 95 12/26/16 11:41 97.0 77 16 125/73 98 12/26/16 09:41 98.1 87 16 128/75 98 12/26/16 08:00 97.6 76 18 147/74 98 12/26/16 04:00 12/25/16 23:34 97.9 82 20 153/88 98 12/25/16 20:00 98.8 87 18 141/71 95 12/26/16 12/26/16 12/26/16 07:00 15:00 23:00 Intake Total 485 ml 240 ml Output Total 200 ml Balance 485 ml 40 ml Result Diagram: 12/26/16 0330 12/25/16 0610 Laboratory Results Laboratory Tests Test 12/26/16 12/26/16 03:30 07:09 White Blood Count 22.1 TH/MM3 Red Blood Count 2.29 MIL/MM3 Hemoglobin 8.8 GM/DL Hematocrit 25.8 % Mean Corpuscular Volume 112.4 FL Mean Corpuscular Hemoglobin 38.4 PG Mean Corpuscular Hemoglobin 34.2 % Concent Red Cell Distribution Width 23.6 % Platelet Count 95 TH/MM3 Mean Platelet Volume 7.4 FL Neutrophils (%) (Auto) 85.2 % Lymphocytes (%) (Auto) 6.7 % Monocytes (%) (Auto) 6.1 % Eosinophils (%) (Auto) 1.2 % Basophils (%) (Auto) 0.8 % Neutrophils # (Auto) 18.8 TH/MM3 Lymphocytes # (Auto) 1.5 TH/MM3 Monocytes # (Auto) 1.3 TH/MM3 Eosinophils # (Auto) 0.3 TH/MM3 Basophils # (Auto) 0.2 TH/MM3 CBC Comment AUTO DIFF Differential Comment AUTO DIFF CONFIRMED Platelet Estimate LOW Platelet Morphology Comment NORMAL Ovalocytes Keratocytes OCC Prothrombin Time 21.6 SEC Prothromb Time International 1.9 RATIO Ratio Fibrinogen 94 mg/dL Blood Bank Comment Administered Medications Medications (Trade) Dose Ordered Sig/Blayne Route PRN Reason Start Time Stop Time Status Last Admin Dose Admin Sodium Chloride (NS Flush) 2 ml UNSCH PRN IV FLUSH FLUSH AFTER USING IV ACCESS 12/22/16 21:00 12/26/16 06:11 Sodium Chloride (NS Flush) 2 ml BID IV FLUSH 12/22/16 21:00 12/25/16 23:43 Folic Acid (Folate) 1 mg DAILY PO 12/23/16 09:00 12/26/16 09:02 Lactulose (Lactulose Liq) 30 ml BID PO 12/22/16 21:00 12/26/16 09:02 Oxycodone HCl (Roxicodone) 5 mg Q4H PRN PO PAIN 12/22/16 21:00 12/26/16 14:40 Potassium Chloride (KCl) 10 meq DAILY PO 12/23/16 09:00 12/26/16 09:02 Thiamine HCl (Vitamin B1) 100 mg DAILY PO 12/23/16 09:00 12/26/16 09:02 Pantoprazole Sodium (Protonix) 40 mg DAILY PO 12/23/16 09:00 12/26/16 09:02 Ondansetron HCl (Zofran Inj) 4 mg Q6HR PRN IV PUSH NAUSEA OR VOMITING 12/22/16 22:45 12/22/16 22:45 Nadolol (Corgard) 20 mg DAILY PO 12/23/16 09:00 12/26/16 09:03 Prednisolone (Orapred Odt) 30 mg DAILY PO 12/23/16 09:00 12/26/16 09:03 Furosemide 20 mg 20 mg DAILY PO 12/23/16 09:00 12/26/16 09:02 Cefepime HCl/ Sodium Chloride (Maxipime Inj/NS Inj) 100 ml @ 200 mls/hr Q8H IV 12/23/16 15:00 12/26/16 14:41 Miscellaneous Information Patient in critical care unit? Ass... [id number] 12/24/16 05:45 12/24/16 05:45 Vancomycin HCl 1750 mg/Sodium Chloride 517.5 ml @ 250 mls/hr Q12H IV 12/25/16 18:00 12/26/16 18:09 Sodium Chloride 250 ml @ 15 mls/hr ONCE ONCE IV 12/26/16 07:15 12/26/16 23:54 12/26/16 09:00 Sodium Chloride 250 ml @ 15 mls/hr ONCE ONCE IV 12/26/16 07:15 12/26/16 23:54 12/26/16 09:00 Sodium Chloride 250 ml @ 15 mls/hr ONCE ONCE IV 12/26/16 07:15 12/26/16 23:54 12/26/16 07:15 Sodium Chloride (NS 250 ml Inj) 250 ml @ 15 mls/hr ONCE ONCE IV 12/26/16 08:30 12/27/16 01:09 12/26/16 08:30 Objective Remarks GENERAL PHYSICAL APPEARANCE: Mr. Nixon is a chronically ill-appearing young man. He is grossly jaundiced. He is sitting up in bed in no apparent distress but he has sudden twitching movements of his lower and upper extremities. HEAD, EYES, EARS, NOSE, THROAT: He has a clean-appearing bandage on the right side of his forehead. Conjunctivae are grossly icteric. The conjunctivae appear pale. ORAL EXAM: Mucosal icterus is noted. No pharyngeal erythema. NECK EXAM: No palpable cervical or supraclavicular lymphadenopathy. RESPIRATORY EXAM: Good air movement bilaterally over the upper and middle lung zones, decreased basilar breath sounds. CARDIOVASCULAR EXAM: Regular rate and rhythm. S1 plus S2. No obvious murmurs, rubs or gallops. ABDOMINAL EXAM: Protuberant belly, soft, nontender and nondistended. Palpable organ enlargement. LOWER EXTREMITIES: No pretibial edema. No calf tenderness. SKIN: Extensive bruising over his upper extremities. Extensive bruising over his thighs, bruising noted over the gluteal area. Assessment/Plan Assessment Mr. 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 This man has a decompensated liver failure given the abnormal hepatic synthetic function (elevated PT, PTT, INR, low albumin and impaired hepatic function given the elevated bilirubin levels). This man comes into the hospital with bleeding and bruising. Unfortunately his constellation of findings seems to point directly towards his liver dysfunction. Additionally in conjunction with the impaired hepatic synthetic function of procoagulant factors, he likely has a dysregulation of some of the endogenous anticoagulants such as protein-C and protein-S, which is commonly seen in individuals with decompensated liver failure. As a consequence, he has developed what appears to be a dysregulated activation of thrombin with resultant further consumption of coagulation factors as well as a production of byproducts of fibrin formation. This would explain the consumption of his fibrinogen and elevation of his D dimer. Plan 1. Coagulopathy secondary to acute liver injury secondary to alcohol abuse: Monitor PT/ PTT and INR and fibrinogen levels. Replace blood products accordingly. He did receive cryoprecipitate and FFP earlier today. Subjectively he does feel improved. 2. There is a possibility of his liver function improving with time in the absence of alcohol abuse. When this occurs, his hepatic synthetic function should improve and he should begin to synthesize the coagulation factors as well as naturally occurring anticoagulants; protein C and protein S. 3. 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 I suspect the hemachromatosis and hepatic iron overload has contributed to an accelerated his liver failure in the presence of alcohol abuse. Continue supportive care for now. Given the extent of his liver dysfunction, his prognosis remains guarded. Price Colón MD Dec 26, 2016 18:24
[2016-12-26 20:00] VITALS: BP 126/65; PULSE 69; RESP 18; TEMP 96.6; O2SAT 97
[2016-12-27] VITALS: BP 126/77; PULSE 77; RESP 18; TEMP 97.4; O2SAT 100
[2016-12-27] MEDS: VANCOMYCIN INJ 1,750 MG in SODIUM CHLORID 0.9% 500 ML INJ 500 ML IV SCH (05:30)
[2016-12-27 06:40] LABS: CHLORIDE 102 MEQ/L (98-107); POTASSIUM 3.5 MEQ/L (3.5-5.1); SODIUM (NA) 135 MEQ/L (136-145)
[2016-12-27 06:44] LABS: ANION GAP 6 MEQ/L (5-15); BICARBONATE 26.7 MEQ/L (21.0-32.0); BLOOD UREA NITROGEN 9 MG/DL (7-18)
[2016-12-27 06:45] LABS: INTERNATIONAL NORMALIZED RATIO 1.9 RATIO; PROTHROMBIN TIME - PATIENT 21.8 SEC (9.8-11.6)
[2016-12-27 06:47] LABS: ALT (GPT) 59 U/L (12-78); AST (GOT) 126 U/L (15-37); GLOMERULAR FILTRATION RATE 109 ML/MIN (>89)
[2016-12-27 06:50] LABS: ALKALINE PHOSPHATASE 165 U/L (45-117)
[2016-12-27] MEDS ORDERED: PHYTONADIONE 5 MG TAB PO ONE (07:15)
[2016-12-27] MEDS: CEFEPIME INJ 1,000 MG in SODIUM CHLORIDE 0.9% INJ 100 ML IV SCH (07:23)
[2016-12-27] MEDS: THIAMINE HCL 100 MG TAB PO SCH (07:52)
[2016-12-27] MEDS: LACTULOSE SYRUP 20 GM/30 ML CUP PO SCH ×2 (07:52→21:09)
[2016-12-27] MEDS: NADOLOL 20 MG TAB PO SCH (07:53)
[2016-12-27] MEDS: PANTOPRAZOLE SOD 40 MG DELAYED RELEASE TAB PO SCH (07:53)
[2016-12-27] MEDS: POTASSIUM CHLORIDE 10 MEQ CONTROLLED RELEASE TAB PO SCH (07:53)
[2016-12-27] MEDS: prednisoLONE 15 MG ODT TAB PO SCH (07:53)
[2016-12-27] MEDS: FOLIC ACID 1 MG TAB PO SCH (07:53)
[2016-12-27] MEDS: FUROSEMIDE 20 MG TAB PO SCH (07:53)
[2016-12-27] MEDS: SODIUM CHLORIDE 0.9% FLUSH 10 ML FLUSH IV FLUSH SCH ×2 (07:58→21:18)
--- NOTE | 2016-12-27 11:44 | HHI.PR ---
Subjective Remarks Patient seen in room out of the bed ambulatory. Feels much better. Further bleeding per patient. No fever. Still with leukocytosis. Status post cryoprecipitate and FFP yesterday per hematology. Objective Vitals Vital Signs Date Time Temp Pulse Resp B/P Pulse Ox O2 Delivery O2 Flow Rate FiO2 12/27/16 00:00 97.4 77 18 126/77 100 12/26/16 20:00 96.6 69 18 126/65 97 12/26/16 15:40 20 12/26/16 12:00 97.5 95 17 129/73 95 12/26/16 11:41 97.0 77 16 125/73 98 I/O 12/26/16 12/26/16 12/26/16 12/27/16 12/27/16 12/27/16 07:00 15:00 23:00 07:00 15:00 23:00 Intake Total 485 ml 240 ml 446 ml 240 ml Output Total 200 ml Balance 485 ml 40 ml 446 ml 240 ml Intake Oral 240 ml 240 ml IV Total 485 ml 446 ml Output Urine Total 200 ml # Voids 2 2 # Bowel Movements 3 1 1 Result Diagram: 12/26/16 0330 12/27/16 0525 Objective Remarks Skin with multiple but improved areas of ecchymoses and jaundice, scleral icterus GENERAL: This is a well-nourished, well-developed patient CARDIOVASCULAR: Regular rate and rhythm without murmurs, gallops, or rubs. RESPIRATORY: Clear to auscultation. Breath sounds equal bilaterally. No wheezes , rales, or rhonchi. GASTROINTESTINAL: Abdomen soft, non-tender, mildly distended. Normal active bowel sounds MUSCULOSKELETAL: Extremities without clubbing, cyanosis, or edema. NEURO: Alert & Oriented x4 to person, place, time, situation. Moves all ext x4 A/P Problem List: (1) Jaundice ICD Code: R17 Status: Acute Plan: Improved Due to alcohol related Liver failure continue prednisolone, nadolol and Lasix, Aldactone, lactulose and multivitamins Continue patient education and nutritional support GI consult appreciated (2) Hyponatremia ICD Code: E87.1 Status: Acute Plan: Improved sodium Likely volume related fluid restriction 1200ml (3) Bleeding ICD Code: R58 Status: Acute Plan: Chronic thrombocytopenia stable Patient with moderate acute blood loss anemia from multiple areas of ecchymosis , bleeding from forehead. Hg improved after transfusion Dx: DIC and patient s/p Vit k, FFP Cryo GI/Hematology eval appreciated (4) SIRS (systemic inflammatory response syndrome) ICD Code: R65.10 Status: Acute Plan: BC neg x 4days, CXR and Urine Neg Empiric cipro for SBP to complete ten days (01/01) Persistent leukocytosis will be followed (5) Cirrhosis of liver with ascites ICD Code: K74.60 Status: Acute Plan: Multifactorial patient with hemochromatosis, which will be followed by hematology as an outpatient for therapeutic phlebotomy Also EtoH cirrhosis (currently abstinent form alcohol) Poor overall survival predicted, however patient highly motivated and abstinent form etoh since may Discharge Planning pending stabilization of bleeding dyscrasia Violette Joyce MD Dec 27, 2016 11:44
[2016-12-27 12:00] VITALS: BP 134/75; PULSE 80; RESP 17; TEMP 98.1; O2SAT 96
[2016-12-27 16:00] VITALS: BP 131/80; PULSE 78; RESP 19; TEMP 97.8; O2SAT 95
--- NOTE | 2016-12-27 19:15 | HHI.GIFU ---
Subjective Remarks patient is lying in bed comfortably without any new complaints, still very jaundice, no abdominal pain,. Objective Vitals I&O Vital Signs Date Time Temp Pulse Resp B/P Pulse Ox O2 Delivery O2 Flow Rate FiO2 12/27/16 16:00 97.8 78 19 131/80 95 12/27/16 12:00 98.1 80 17 134/75 96 12/27/16 00:00 97.4 77 18 126/77 100 12/26/16 20:00 96.6 69 18 126/65 97 I/O 12/26/16 12/26/16 12/26/16 12/27/16 12/27/16 12/27/16 07:00 15:00 23:00 07:00 15:00 23:00 Intake Total 485 ml 240 ml 446 ml 240 ml 300 ml Output Total 200 ml 504 ml Balance 485 ml 40 ml 446 ml 240 ml -204 ml Intake Oral 240 ml 240 ml 300 ml IV Total 485 ml 446 ml Output Urine Total 200 ml 504 ml # Voids 2 2 # Bowel Movements 3 1 1 Laboratory Laboratory Tests Test 12/27/16 05:25 Prothrombin Time 21.8 Prothromb Time International 1.9 Ratio Fibrinogen 110 Sodium Level 135 Potassium Level 3.5 Chloride Level 102 Carbon Dioxide Level 26.7 Anion Gap 6 Blood Urea Nitrogen 9 Creatinine 0.82 Estimat Glomerular Filtration 109 Rate Random Glucose 100 Calcium Level 8.2 Total Bilirubin 10.0 Aspartate Amino Transf 126 (AST/SGOT) Alanine Aminotransferase 59 (ALT/SGPT) Alkaline Phosphatase 165 Total Protein 6.5 Albumin 2.0 Date/Time Procedure Status Source Growth 12/23/16 10:15 Aerobic Blood Culture - Preliminary Resulted Blood Peripheral NO GROWTH IN 4 DAYS 12/23/16 10:15 Anaerobic Blood Culture - Preliminary Resulted Blood Peripheral NO GROWTH IN 4 DAYS 12/23/16 04:00 Urine Culture - Final Complete Urine Clean Catch NO GROWTH IN 48 HOURS. Physical Exam HEENT: normocephalic; atraumatic; jaundiced. Throat is clear., sutured wound NECK: Neck is supple, CHEST: Chest is clear to auscultation and percussion. CARDIAC: Regular rate and rhythm with no murmur gallop or rubs. ABDOMEN: Soft, Very minimal distended, nontender; EXTREMITIES: No clubbing, cyanosis, +1 edema. NETWORK DEVELOPMENT COORDINATOR: No focal deficits; alert and oriented times three. Assessment and Plan Plan Acute alcoholic hepatitis Coagulopathy HGB stable no obvious bleeding Patient advised to quit alcohol Low salt diet Monitor labs Transfuse as needed Patient will require endoscopy at some point but will first await resolution of coagulopathy Patient wants to go to [place] to be considered for TXP. 8 patient is doing reasonably well today, his liver function test is improving his total bilirubin is down to 10, he is tolerating diet he still have lower extremities edema and mild ascites, he can be on diuretics and can be discharged home tomorrow if continue to do well, he can follow as an outpatient and with the transplant center as he wants that. Evla Alas MD Dec 27, 2016 19:15
[2016-12-27 20:00] VITALS: BP 127/84; PULSE 75; RESP 20; TEMP 97.5; O2SAT 97
[2016-12-27] MEDS: CIPROFLOXACIN 500 MG TAB PO SCH (21:11)
[2016-12-27] MEDS: LACTOBACILLUS ACIDOPHILUS TAB PO SCH (21:18)
[2016-12-28] VITALS (7 sets, daily range): BP systolic 112–150; BP diastolic 62–88; PULSE 63–90; RESP 16–20; TEMP 96.4–98.3; O2SAT 95–100
[2016-12-28 06:22] LABS: INTERNATIONAL NORMALIZED RATIO 2.1 RATIO; PROTHROMBIN TIME - PATIENT 24.4 SEC (9.8-11.6)
[2016-12-28 06:23] LABS: AUTOMATED NEUTROPHIL # 11.6 TH/MM3 (1.8-7.7); BASOPHIL # 0.1 TH/MM3 (0-0.2); BASOPHIL % 0.4 % (0.0-2.0); CHLORIDE 105 MEQ/L (98-107); EOSINOPHIL # 0.2 TH/MM3 (0-0.4); EOSINOPHIL % 1.5 % (0.0-4.0); HEMATOCRIT 22.8 % (39.0-51.0); LYMPH % 12.2 % (9.0-44.0); LYMPHOCYTE # 1.8 TH/MM3 (1.0-4.8); MEAN CELL VOLUME 113.7 FL (80.0-100.0); MEAN CORPUSCULAR HEMOGLOBIN 40.1 PG (27.0-34.0); MEAN CORPUSCULAR HGB CONC 35.3 % (32.0-36.0); MONO % 9.3 % (0.0-8.0); NEUT % 76.6 % (16.0-70.0); PLATELET COUNT 91 TH/MM3 (150-450); POTASSIUM 3.7 MEQ/L (3.5-5.1); RED CELL DISTRIBUTION WIDTH 23.8 % (11.6-17.2); SODIUM (NA) 138 MEQ/L (136-145); WHITE BLOOD COUNT 15.1 TH/MM3 (4.0-11.0)
[2016-12-28 06:33] LABS: HEMO FLAGS AUTO DIFF
[2016-12-28 06:36] LABS: ANION GAP 6 MEQ/L (5-15); BICARBONATE 27.1 MEQ/L (21.0-32.0); BLOOD UREA NITROGEN 9 MG/DL (7-18)
[2016-12-28 06:37] LABS: ALT (GPT) 55 U/L (12-78); AST (GOT) 112 U/L (15-37)
[2016-12-28 06:39] LABS: GLOMERULAR FILTRATION RATE 115 ML/MIN (>89); TOTAL BILIRUBIN ADULT 9.6 MG/DL (0.2-1.0)
[2016-12-28 06:40] LABS: ALKALINE PHOSPHATASE 145 U/L (45-117)
[2016-12-28 07:29] LABS: KERATOCYTES OCC (NORMAL); PLATELET ESTIMATE SMEAR LOW (NORMAL); PLATELET MORPHOLOGY NORMAL (NORMAL); SCAN/DIFF AUTO DIFF CONFIRMED
[2016-12-28] MEDS: LACTULOSE SYRUP 20 GM/30 ML CUP PO SCH ×2 (09:47→19:27)
[2016-12-28] MEDS: PANTOPRAZOLE SOD 40 MG DELAYED RELEASE TAB PO SCH (09:47)
[2016-12-28] MEDS: LACTOBACILLUS ACIDOPHILUS TAB PO SCH ×2 (09:47→19:27)
[2016-12-28] MEDS: FOLIC ACID 1 MG TAB PO SCH (09:47)
[2016-12-28] MEDS: NADOLOL 20 MG TAB PO SCH (09:47)
[2016-12-28] MEDS: SODIUM CHLORIDE 0.9% FLUSH 10 ML FLUSH IV FLUSH SCH ×2 (09:48→19:29)
[2016-12-28] MEDS: prednisoLONE 15 MG ODT TAB PO SCH (09:48)
[2016-12-28] MEDS: CIPROFLOXACIN 500 MG TAB PO SCH ×2 (09:48→19:27)
[2016-12-28] MEDS: FUROSEMIDE 20 MG TAB PO SCH (09:48)
[2016-12-28] MEDS: POTASSIUM CHLORIDE 10 MEQ CONTROLLED RELEASE TAB PO SCH (09:48)
[2016-12-28] MEDS: THIAMINE HCL 100 MG TAB PO SCH (09:48)
[2016-12-28] MEDS ORDERED: SODIUM CHLOR 0.9% 250 ML INJ 250 ML IV ONE (10:15)
--- NOTE | 2016-12-28 11:19 | HHI.PR ---
Subjective Remarks Patient seen in room in follow-up for liver failure with bleeding diathesis. No further bleeding overnight. Fibrinogen however has dropped a bit and patient will need further blood products administration. Discussed with patient and mother a lot bedside. LFTs improved and patient tolerating oral Cipro better. Leukocytosis improved Objective Vitals Vital Signs Date Time Temp Pulse Resp B/P Pulse Ox O2 Delivery O2 Flow Rate FiO2 12/28/16 08:00 97.6 83 16 150/84 99 12/28/16 00:00 97.2 63 20 112/62 100 12/27/16 20:00 97.5 75 20 127/84 97 12/27/16 16:00 97.8 78 19 131/80 95 12/27/16 12:00 98.1 80 17 134/75 96 I/O 12/27/16 12/27/16 12/27/16 12/28/16 12/28/16 12/28/16 07:00 15:00 23:00 07:00 15:00 23:00 Intake Total 240 ml 300 ml 400 ml 420 ml Output Total 504 ml 400 ml Balance 240 ml -204 ml 0 ml 420 ml Intake Oral 240 ml 300 ml 400 ml 420 ml Output Urine Total 504 ml 400 ml # Voids 2 2 1 # Bowel Movements 1 1 1 Result Diagram: 12/28/16 0546 12/28/16 0546 Objective Remarks Skin with improved areas of ecchymoses and jaundice, scleral icterus improved GENERAL: This is a well-nourished, well-developed patient CARDIOVASCULAR: Regular rate and rhythm without murmurs, gallops, or rubs. RESPIRATORY: Clear to auscultation. Breath sounds equal bilaterally. No wheezes , rales, or rhonchi. GASTROINTESTINAL: Abdomen soft, non-tender, mildly distended. Normal active bowel sounds MUSCULOSKELETAL: Extremities without clubbing, cyanosis, or edema. NEURO: Alert & Oriented x4 to person, place, time, situation. Moves all ext x4 A/P Problem List: (1) Jaundice ICD Code: R17 Status: Acute Plan: Improved Due to alcohol related Liver failure continue prednisolone, nadolol and Lasix, Aldactone, lactulose and multivitamins Continue patient education and nutritional support GI consult appreciated (2) Hyponatremia ICD Code: E87.1 Status: Resolved Plan: Improved sodium Likely volume related fluid restriction 1200ml (3) Bleeding ICD Code: R58 Status: Acute Plan: Chronic thrombocytopenia stable Patient with moderate acute blood loss anemia from multiple areas of ecchymosis , bleeding from forehead. Hg improved after transfusion Dx: DIC and patient s/p Vit k, FFP Cryo Hematology eval appreciated Fibrinogen low again today and patient will need further cryoprecipitate Discussed with hematology team. Patient will need stabilization of his coagulopathy prior to discharge (4) SIRS (systemic inflammatory response syndrome) ICD Code: R65.10 Status: Acute Plan: BC neg x 4days, CXR and Urine Neg Empiric cipro for SBP to complete ten days (01/01) Persistent leukocytosis improved (5) Cirrhosis of liver with ascites ICD Code: K74.60 Status: Acute Plan: Multifactorial patient with hemochromatosis, which will be followed by hematology as an outpatient for therapeutic phlebotomy Also EtoH cirrhosis (currently abstinent form alcohol) Poor overall survival predicted, however patient highly motivated and abstinent form etoh since september Discharge Planning pending stabilization of bleeding dyscrasia Violette Joyce MD Dec 28, 2016 11:19
--- NOTE | 2016-12-28 16:11 | HHI.GIFU ---
GI Follow-up Note Consult Follow-up Subjective: Patient laying in bed comfortably, no new complaints except leg edema Objective: PHYSICAL EXAMINATION: Vitals signs stable No fever HEENT: Pupils round and reactive to light; normocephalic; atraumatic; no jaundice. Throat is clear. NECK: Neck is supple, no JVD, no lymphadenopathy. CHEST: Chest is clear to auscultation and percussion. CARDIAC: Regular rate and rhythm with no murmur gallop or rubs. ABDOMEN: Soft, nondistended, nontender; no hepatosplenomegaly; bowel sounds are present in all four quadrants. EXTREMITIES: No clubbing, cyanosis, or edema. SKIN: Normal; no rash; no jaundice. HEARING AID SPECIALIST: No focal deficits; alert and oriented times three. Last Impressions Head CT 12/24/16 1303 Signed Impressions: Service Date/Time: Saturday, December 24, 2016 15:47 - CONCLUSION: No acute disease. Josh Oscar MD Chest X-Ray 12/22/161910 Signed Impressions: Service Date/Time: November 19:30 - CONCLUSION: 1. Minimal basal atelectasis. Heart size mildly enlarged. Joseluis Johnson MD Abdomen/Pelvis CT 12/22/161910 Signed Impressions: Service Date/Time: November 19:44 - CONCLUSION: 1. Moderate ascites in the abdomen and pelvis with questionable liver cirrhosis. No effusions at the lung bases. Minimal basilar lung scarring. Joseluis Johnson MD Laboratory Tests Test 12/26/16 12/27/16 12/28/16 12/28/16 17:45 05:25 05:46 15:00 Vancomycin Level Trough 19.2 MCG/ML Prothrombin Time 21.8 SEC 24.4 SEC Prothromb Time International 1.9 RATIO 2.1 RATIO Ratio Fibrinogen 110 mg/dL 72 mg/dL Sodium Level 135 MEQ/L 138 MEQ/L Potassium Level 3.5 MEQ/L 3.7 MEQ/L Chloride Level 102 MEQ/L 105 MEQ/L Carbon Dioxide Level 26.7 MEQ/L 27.1 MEQ/L Anion Gap 6 MEQ/L 6 MEQ/L Blood Urea Nitrogen 9 MG/DL 9 MG/DL Creatinine 0.82 MG/DL 0.78 MG/DL Estimat Glomerular Filtration 109 ML/MIN 115 ML/MIN Rate Random Glucose 100 MG/DL 95 MG/DL Calcium Level 8.2 MG/DL 8.1 MG/DL Total Bilirubin 10.0 MG/DL 9.6 MG/DL Aspartate Amino Transf 126 U/L 112 U/L (AST/SGOT) Alanine Aminotransferase 59 U/L 55 U/L (ALT/SGPT) Alkaline Phosphatase 165 U/L 145 U/L Total Protein 6.5 GM/DL 6.2 GM/DL Albumin 2.0 GM/DL 1.9 GM/DL White Blood Count 15.1 TH/MM3 Red Blood Count 2.00 MIL/MM3 Hemoglobin 8.0 GM/DL Hematocrit 22.8 % Mean Corpuscular Volume 113.7 FL Mean Corpuscular Hemoglobin 40.1 PG Mean Corpuscular Hemoglobin 35.3 % Concent Red Cell Distribution Width 23.8 % Platelet Count 91 TH/MM3 Mean Platelet Volume 7.2 FL Neutrophils (%) (Auto) 76.6 % Lymphocytes (%) (Auto) 12.2 % Monocytes (%) (Auto) 9.3 % Eosinophils (%) (Auto) 1.5 % Basophils (%) (Auto) 0.4 % Neutrophils # (Auto) 11.6 TH/MM3 Lymphocytes # (Auto) 1.8 TH/MM3 Monocytes # (Auto) 1.4 TH/MM3 Eosinophils # (Auto) 0.2 TH/MM3 Basophils # (Auto) 0.1 TH/MM3 CBC Comment AUTO DIFF Differential Comment AUTO DIFF CONFIRMED Platelet Estimate LOW Platelet Morphology Comment NORMAL Keratocytes [facility] Blood Bank Comment Allergies Coded Allergies Type Severity Reaction Last Updated Verified No Known Allergies 12/22/16 No Active Scripts Medications Dose Route/Sig Days Date Category Vitamin B-1 (Thiamine HCl) 100 Mg Tab 100 Mg PO DAILY 12/22/16 Reported Spironolactone 25 Mg Tab 25 Mg PO DAILY 12/22/16 Reported Lactulose Liq (Lactulose) 10 Gm/15 Ml Soln 30 Ml PO BID 12/22/16 Reported Folic Acid 400 Mcg Tab 1 Mg PO DAILY 12/22/[address] 40 Mg Capdr 40 Mg PO DAILY 12/22/16 Reported Oxycodone (Oxycodone HCl) 5 Mg Cap 5 Mg PO Q4H PRN 09/22/16 Rx Klor-Con 10 (Potassium Chloride) 10 Meq Tab 10 Meq PO DAILY 09/01/16 Rx Available Data (labs, X- Rays, Procedues) : ASSESSMENT/PLAN:Seen and examined in the presence of nurse and family. Getting FFP infusion. Doing well except for leg edema. May need extra diuretics after FFP. Outpt. w/u for referral to Liver transplant center. Needs to continue to abstain from ETOH. Last Impressions Head CT 12/24/16 1303 Signed Impressions: Service Date/Time: Saturday, December 24, 2016 15:47 - CONCLUSION: No acute disease. Josh Oscar MD Chest X-Ray 12/22/161910 Signed Impressions: Service Date/Time: , December 22, 2016 19:30 - CONCLUSION: 1. Minimal basal atelectasis. Heart size mildly enlarged. Joseluis Johnson MD Abdomen/Pelvis CT 12/22/161910 Signed Impressions: Service Date/Time: , December 22, 2016 19:44 - CONCLUSION: 1. Moderate ascites in the abdomen and pelvis with questionable liver cirrhosis. No effusions at the lung bases. Minimal basilar lung scarring. Joseluis Johnson MD It was a pleasure seeing Jignesh Nixon. Thank you for this consult. Entered by: Delia Huerta MD Dec 28, 2016 16:11
[2016-12-29] VITALS: BP 125/68; PULSE 94; RESP 20; TEMP 97.8; O2SAT 96
--- NOTE | 2016-12-29 01:29 | PD.ONC.PN ---
Subjective Subjective Remarks Late note entry Patient seen on 12/28/16 Patient was sitting up and watching TV no bleeding Objective Data Date Time Temp Pulse Resp B/P Pulse Ox O2 Delivery O2 Flow Rate FiO2 12/28/16 20:00 97.9 90 20 143/88 95 12/28/16 16:10 96.4 68 18 134/80 96 12/28/16 16:00 98.2 84 16 129/80 99 12/28/16 15:55 98.2 84 18 129/80 99 12/28/16 12:00 98.3 88 16 142/88 98 12/28/16 08:00 97.6 83 16 150/84 99 Result Diagram: 12/28/16 0546 12/28/16 0546 Laboratory Results Laboratory Tests Test 12/28/16 12/28/16 05:46 15:00 White Blood Count 15.1 TH/MM3 Red Blood Count 2.00 MIL/MM3 Hemoglobin 8.0 GM/DL Hematocrit 22.8 % Mean Corpuscular Volume 113.7 FL Mean Corpuscular Hemoglobin 40.1 PG Mean Corpuscular Hemoglobin 35.3 % Concent Red Cell Distribution Width 23.8 % Platelet Count 91 TH/MM3 Mean Platelet Volume 7.2 FL Neutrophils (%) (Auto) 76.6 % Lymphocytes (%) (Auto) 12.2 % Monocytes (%) (Auto) 9.3 % Eosinophils (%) (Auto) 1.5 % Basophils (%) (Auto) 0.4 % Neutrophils # (Auto) 11.6 TH/MM3 Lymphocytes # (Auto) 1.8 TH/MM3 Monocytes # (Auto) 1.4 TH/MM3 Eosinophils # (Auto) 0.2 TH/MM3 Basophils # (Auto) 0.1 TH/MM3 CBC Comment AUTO DIFF Differential Comment AUTO DIFF CONFIRMED Platelet Estimate LOW Platelet Morphology Comment NORMAL Keratocytes OCC Prothrombin Time 24.4 SEC Prothromb Time International 2.1 RATIO Ratio Fibrinogen 72 mg/dL Sodium Level 138 MEQ/L Potassium Level 3.7 MEQ/L Chloride Level 105 MEQ/L Carbon Dioxide Level 27.1 MEQ/L Anion Gap 6 MEQ/L Blood Urea Nitrogen 9 MG/DL Creatinine 0.78 MG/DL Estimat Glomerular Filtration 115 ML/MIN Rate Random Glucose 95 MG/DL Calcium Level 8.1 MG/DL Total Bilirubin 9.6 MG/DL Aspartate Amino Transf 112 U/L (AST/SGOT) Alanine Aminotransferase 55 U/L (ALT/SGPT) Alkaline Phosphatase 145 U/L Total Protein 6.2 GM/DL Albumin 1.9 GM/DL Blood Bank Comment Administered Medications Medications (Trade) Dose Ordered Sig/Blayne Route PRN Reason Start Time Stop Time Status Last Admin Dose Admin Sodium Chloride (NS Flush) 2 ml UNSCH PRN IV FLUSH FLUSH AFTER USING IV ACCESS 12/22/16 21:00 12/26/16 06:11 Sodium Chloride (NS Flush) 2 ml BID IV FLUSH 12/22/16 21:00 12/28/16 19:29 Folic Acid (Folate) 1 mg DAILY PO 12/23/16 09:00 12/28/16 09:47 Lactulose (Lactulose Liq) 30 ml BID PO 12/22/16 21:00 12/28/16 19:27 Oxycodone HCl (Roxicodone) 5 mg Q4H PRN PO PAIN 12/22/16 21:00 12/28/16 19:27 Potassium Chloride (KCl) 10 meq DAILY PO 12/23/16 09:00 12/28/16 09:48 Thiamine HCl (Vitamin B1) 100 mg DAILY PO 12/23/16 09:00 12/28/16 09:48 Pantoprazole Sodium (Protonix) 40 mg DAILY PO 12/23/16 09:00 12/28/16 09:47 Ondansetron HCl (Zofran Inj) 4 mg Q6HR PRN IV PUSH NAUSEA OR VOMITING 12/22/16 22:45 12/22/16 22:45 Nadolol (Corgard) 20 mg DAILY PO 12/23/16 09:00 12/28/16 09:47 Prednisolone (Orapred Odt) 30 mg DAILY PO 12/23/16 09:00 12/28/16 09:48 Furosemide (Lasix) 20 mg DAILY PO 12/23/16 09:00 12/28/16 09:48 Miscellaneous Information Patient in critical care unit? Ass... [id number] .XX 12/24/16 05:45 12/24/16 05:45 Ciprofloxacin (Cipro) 500 mg Q12HR PO 12/27/16 21:00 12/28/16 19:27 Lactobacillus Acidophilus 1 tab 1 tab Q12HR PO 8/1/17 21:00 12/28/16 19:27 Sodium Chloride (NS 250 ml Inj) 250 ml @ 15 mls/hr ONCE ONCE IV 12/28/16 10:15 12/29/16 02:54 12/28/16 15:17 Objective Remarks GENERAL: nad SKIN: Warm and dry NECK: Supple, trachea midline. No JVD or lymphadenopathy. LYMPHATIC: No adenopathy. CARDIOVASCULAR: Regular rate and rhythm without murmurs. RESPIRATORY: Breath sounds equal bilaterally. No accessory muscle use. GASTROINTESTINAL: Abdomen soft, non-tender, nondistended. EXTREMITIES: No cyanosis, or edema. Assessment/Plan Assessment Mr. 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 This man has a decompensated liver failure given the abnormal hepatic synthetic function (elevated PT, PTT, INR, low albumin and impaired hepatic function given the elevated bilirubin levels). This man comes into the hospital with bleeding and bruising. Unfortunately his constellation of findings seems to point directly towards his liver dysfunction. Additionally in conjunction with the impaired hepatic synthetic function of procoagulant factors, he likely has a dysregulation of some of the endogenous anticoagulants such as protein-C and protein-S, which is commonly seen in individuals with decompensated liver failure. As a consequence, he has developed what appears to be a dysregulated activation of thrombin with resultant further consumption of coagulation factors as well as a production of byproducts of fibrin formation. This would explain the consumption of his fibrinogen and elevation of his D dimer. Plan 1. Coagulopathy secondary to acute liver injury secondary to alcohol abuse: Monitor PT/ PTT and INR and fibrinogen levels daily. Replace blood products accordingly. CRYO AND VITAMIN K Today - His fibrinogen will remain low due to liver dysfunction - If there is no bleeding. and Hb remains stable, he is cleared to be discharged - Outpatient f/u with GI and transplant evaluation - F/U with Ziggy Haynes MD Dec 29, 2016 01:29
[2016-12-29] MEDS ORDERED: PHYTONADIONE 5 MG TAB PO ONE (07:00)
[2016-12-29] MEDS: CIPROFLOXACIN 500 MG TAB PO SCH (08:17)
[2016-12-29] MEDS: SODIUM CHLORIDE 0.9% FLUSH 10 ML FLUSH IV FLUSH SCH (08:17)
[2016-12-29] MEDS: THIAMINE HCL 100 MG TAB PO SCH (08:18)
[2016-12-29] MEDS: LACTULOSE SYRUP 20 GM/30 ML CUP PO SCH (08:18)
[2016-12-29] MEDS: prednisoLONE 15 MG ODT TAB PO SCH (08:18)
[2016-12-29] MEDS: NADOLOL 20 MG TAB PO SCH (08:18)
[2016-12-29] MEDS: PANTOPRAZOLE SOD 40 MG DELAYED RELEASE TAB PO SCH (08:18)
[2016-12-29] MEDS: FUROSEMIDE 20 MG TAB PO SCH (08:18)
[2016-12-29] MEDS: FOLIC ACID 1 MG TAB PO SCH (08:18)
[2016-12-29] MEDS: POTASSIUM CHLORIDE 10 MEQ CONTROLLED RELEASE TAB PO SCH (08:18)
[2016-12-29] MEDS: LACTOBACILLUS ACIDOPHILUS TAB PO SCH (08:19)
[2016-12-29 08:36] LABS: APTT (PATIENT) 31.5 SEC (24.3-30.1); INTERNATIONAL NORMALIZED RATIO 1.9 RATIO
[2016-12-29 08:50] VITALS: BP 137/83; PULSE 100; RESP 19; TEMP 98.2; O2SAT 100
[2016-12-29 09:17] VITALS: RESP 18
[2016-12-29] MEDS ORDERED: NADO1TAB16 PO (10:56)
[2016-12-29] MEDS ORDERED: FURO20TA PO (10:56)
[2016-12-29] MEDS ORDERED: CIPR-9 PO (10:56)
--- NOTE | 2016-12-29 10:57 | HHI.DCPOC ---
Discharge Care Plan Diagnosis: (1) Hyponatremia (2) Cirrhosis of liver with ascites (3) Coagulopathy Goals to Promote Your Health * To prevent worsening of your condition and complications * To maintain your health at the optimal level Directions to Meet Your Goals Take your medications as prescribed Follow your dietary instruction Follow activity as directed Keep your appointments as scheduled Take your immunizations and boosters as scheduled If your symptoms worsen call your PCP, if no PCP go to Urgent Care Center or Emergency Room Smoking is Dangerous to Your Health. Avoid second hand smoke Call the 24-hour hour crisis hotline for domestic abuse at Jignesh Perez Dec 29, 2016 10:57
[2016-12-29] MEDS ORDERED: MEDR4PAK PO (11:07)
--- NOTE | 2016-12-29 11:13 | HHI.DS ---
Discharge Summary Admission Date Dec 24, 2016 at 11:57 Discharge Date: Dec 29, 2016 Admitting Diagnosis AMS DUE TO HYPONATREMIA/LEUKOCYTOSIS NOS (1) Jaundice ICD Code: R17 Diagnosis: Principal (2) Hyponatremia ICD Code: E87.1 Diagnosis: Principal (3) Bleeding ICD Code: R58 Diagnosis: Principal (4) SIRS (systemic inflammatory response syndrome) ICD Code: R65.10 Diagnosis: Principal (5) Cirrhosis of liver with ascites ICD Code: K74.60 Diagnosis: Principal Procedures None Brief History - From Admission The patient is a 30-year-old gentleman with a known history of alcoholic liver failure who came to the emergency room yesterday with increased confusion and increased abdominal distention with lower extremity swelling. He says that he was confused as to the date and time and place. His was concerned and brought to the hospital. He had inability to focus and felt "fuzzy "in his head. He was sleeping erratically and was quite concerned about the change condition. He recently was treated with antibiotics from [facility] for empiric treatment of ascites. He had no fever or chills as per his report. Paracentesis was done and fluid was unremarkable. Patient was prescribed Ceftin and discharged. Currently he takes Aldactone, lactulose, folic acid and Protonix without difficulty. He presents now with increased bruising over multiple extensor surfaces and in his back. He is not lightheaded or dizzy. He does have some hematuria and minimal epistaxis. Patient is jaundiced with scleral icterus. He is not confused this morning. He is however quite fatigued. Patient says he has discontinued alcohol and has been abstinent for about a month. Patient is admitted to the hospital for further evaluation and treatment CBC/BMP: 12/28/16 0546 12/28/16 0546 Significant Findings Laboratory Tests Test 12/26/16 12/27/16 12/28/16 12/29/16 17:45 05:25 05:46 08:10 Vancomycin Level Trough 19.2 MCG/ML (5.0-10.0) Prothrombin Time 21.8 SEC 24.4 SEC 22.0 SEC (9.8-11.6) (9.8-11.6) (9.8-11.6) Fibrinogen 110 mg/dL 72 mg/dL 93 mg/dL (227-377) (227-377) (227-377) Sodium Level 135 MEQ/L (136-145) Calcium Level 8.2 MG/DL 8.1 MG/DL (8.5-10.1) (8.5-10.1) Total Bilirubin 10.0 MG/DL 9.6 MG/DL (0.2-1.0) (0.2-1.0) Aspartate Amino Transf 126 U/L (15-37) 112 U/L (15-37) (AST/SGOT) Alkaline Phosphatase 165 U/L 145 U/L (45-117) (45-117) Albumin 2.0 GM/DL 1.9 GM/DL (3.4-5.0) (3.4-5.0) White Blood Count 15.1 TH/MM3 (4.0-11.0) Red Blood Count 2.00 MIL/MM3 (4.50-5.90) Hemoglobin 8.0 GM/DL (13.0-17.0) Hematocrit 22.8 % (39.0-51.0) Mean Corpuscular Volume 113.7 FL (80.0-100.0) Mean Corpuscular Hemoglobin 40.1 PG (27.0-34.0) Red Cell Distribution Width 23.8 % (11.6-17.2) Platelet Count 91 TH/MM3 (150-450) Neutrophils (%) (Auto) 76.6 % (16.0-70.0) Monocytes (%) (Auto) 9.3 % (0.0-8.0) Neutrophils # (Auto) 11.6 TH/MM3 (1.8-7.7) Monocytes # (Auto) 1.4 TH/MM3 (0-0.9) Platelet Estimate LOW (NORMAL) Total Protein 6.2 GM/DL (6.4-8.2) Activated Partial 31.5 SEC Thromboplast Time (24.3-30.1) Imaging Last Impressions Head CT 12/24/16 1303 Signed Impressions: Service Date/Time: Saturday, December 24, 2016 15:47 - CONCLUSION: No acute disease. Josh Oscar MD Chest X-Ray 12/22/161910 Signed Impressions: Service Date/Time: , December 22, 2016 19:30 - CONCLUSION: 1. Minimal basal atelectasis. Heart size mildly enlarged. Joseluis Johnson MD Abdomen/Pelvis CT 12/22/161910 Signed Impressions: Service Date/Time: , December 22, 2016 19:44 - CONCLUSION: 1. Moderate ascites in the abdomen and pelvis with questionable liver cirrhosis. No effusions at the lung bases. Minimal basilar lung scarring. Joseluis Johnson MD PE at Discharge Skin with improved areas of ecchymoses and jaundice, scleral icterus improved GENERAL: This is a well-nourished, well-developed patient CARDIOVASCULAR: Regular rate and rhythm without murmurs, gallops, or rubs. RESPIRATORY: Clear to auscultation. Breath sounds equal bilaterally. No wheezes , rales, or rhonchi. GASTROINTESTINAL: Abdomen soft, non-tender, mildly distended. Normal active bowel sounds MUSCULOSKELETAL: Extremities without clubbing, cyanosis, or edema. NEURO: Alert & Oriented x4 to person, place, time, situation. Moves all ext x4 Pt update on day of discharge Pt is really hopeful he can go home. denies CP/SOB/N/V. Feeling well. Hospital Course Is a 30 year-old male who originally presented to the hospital on 12/22 because of altered mental status, abdominal distention and lower extremity swelling. Patient had workup done in emergency department found to have metabolic encephalopathy with hyponatremia. Further workup showed significant abnormality associated with his cirrhosis to include significant jaundice, coagulopathy, anemia. Patient was admitted the hospital with IV fluids and his mentation did improve on a daily basis. However he has significant coagulopathy due to cirrhosis. Patient had multiple doses of vitamin K, cryoprecipitate, FFP given with stability of his coagulopathy is time. Oncology /hematology was following the patient and made recommendations throughout his stay. At the present time, his coagulopathy has stabilized and okay to discharge home with outpatient follow-up. This was discussed with Dr. Colón today. Patient is actively pursuing liver transplantation. He does have paperwork and plans to go to [facility] for evaluation and recommendations. Patient did have workup performed by GI physician and being monitored for his liver enzymes, cirrhosis. Discussion with them today also indicates patient can be discharged in follow-up in 10 days. During the patient's stay he got multiple blood products. 2 units packed red blood cells for his anemia which has remained stable. He is being started on multiple medications to include labetalol, Lasix with his regimen of Aldactone, lactulose and multivitamins for his cirrhosis. Patient was empirically treated with Cipro for spontaneous bacterial peritonitis, recommending total of ten-day treatment for that. Patient clinically stable this time and is very eager to go home. Patient clinical stable time. Will plan discharge accordingly. Pt to f/u w all specialist as an outpatient. Pt voices his understanding. Pt Condition on Discharge: Stable Discharge Disposition: Discharge Home Discharge Time: > 30 minutes Discharge Instructions DIET: Follow Instructions for: Heart Healthy Diet Activities you can perform: Regular-No Restrictions Activities to Avoid: Driving for 24 hrs Follow up Referrals: Gastroenterology - 10 Days with Elva Alas MD Oncology - [address] Colón PCP Follow-up - 1 Week New Orders: ACT PARTIAL THROM TI - 2-3 Days @ [facility] CBC WITH DIFF - 3-5 Days @ [facility] FIBRINOGEN - 2-3 Days @ [facility] PROTHROMBIN TIME (PT) - 2-3 Days @ [facility] New Medications: Methylprednisolone Dosepak (Medrol Dosepak) 4 Mg Dspk 4 MG PO DIRECTED Per Pharmacist direction #1 Ref 0 DSPK Ciprofloxacin (Cipro) 500 Mg Tab 500 MG PO Q12HR SBP #7 TAB Furosemide (Furosemide) 20 Mg Tab 20 MG PO DAILY ascites #30 TAB Nadolol (Corgard) 20 Mg Tab 20 MG PO DAILY Ciirrhosis #30 TAB Continued Medications: Esomeprazole (Esomeprazole DR) 40 Mg Capdr 40 MG PO DAILY #30 Ref 0 CAP Folic Acid (Folic Acid) 400 Mcg Tab 1 MG PO DAILY Nutritional Supplement Ref 0 TAB Lactulose Liq (Lactulose Liq) 10 Gm/15 Ml Soln 30 ML PO BID Ref 0 ML Oxycodone (Oxycodone) 5 Mg Cap 5 MG PO Q4H PRN PAIN #30 Ref 0 CAP Potassium Chloride ER (Klor-Con 10) 10 Meq Tab 10 MEQ PO DAILY potassium loss #30 TAB Spironolactone (Spironolactone) 25 Mg Tab 25 MG PO DAILY #30 Ref 0 TAB Thiamine (Vitamin B-1) 100 Mg Tab 100 MG PO DAILY Nutritional Supplement Ref 0 TAB Additional Information Written by Jignesh Perez, acting as scribe for Dr. Machado on 12/29/16 at 11: 09. This note was transcribed by nelson Perez. I, Dr. Cee Machado personally performed the history, physical exam, and medical decision making; and confirmed the accuracy of the information in the transcribed note. Authenticated by Dr. Cee Machado on 12/29/16 at 11:09. Script for oxycodone was also written and given to Jignesh Markham Dec 29, 2016 11:13 Cee Machado MD Dec 30, 2016 16:07
[2016-12-30] MEDS ORDERED: OXYC1CAP PO (16:02)
== END 2016-12-29 11:56 | disposition home or self-care (01) | DRG 432 ==
LOC: PHED 18:49 → PHEDA 20:50 → PH3B 22:09 → PHICU 12-23 13:58 → OBSVTOIN 12-24 11:57 → PH3B 12-25 10:11
PROVIDERS: ADMIT Hospitalist; ATTEND Hospitalist
PROC: 30233K1 Transfusion of Nonautologous Frozen Plasma into Peripheral Vein, Percutaneous Approach (ICD-10-PCS; 2016-12-23)
PROC: 0HQ1XZZ Repair Face Skin, External Approach (ICD-10-PCS; principal; 2016-12-24)
PROC: 30233N1 Transfusion of Nonautologous Red Blood Cells into Peripheral Vein, Percutaneous Approach (ICD-10-PCS; 2016-12-24)
DX: K70.40 Alcoholic hepatic failure without coma (principal); G93.41 Metabolic encephalopathy; K70.31 Alcoholic cirrhosis of liver with ascites; D65 Disseminated intravascular coagulation [defibrination syndrome]; R65.10 Systemic inflammatory response syndrome (SIRS) of non-infectious origin without acute organ dysfunction; D68.4 Acquired coagulation factor deficiency; E87.1 Hypo-osmolality and hyponatremia; K70.11 Alcoholic hepatitis with ascites; D62 Acute posthemorrhagic anemia; S01.101A Unspecified open wound of right eyelid and periocular area, initial encounter; F31.9 Bipolar disorder, unspecified; F41.9 Anxiety disorder, unspecified; F17.210 Nicotine dependence, cigarettes, uncomplicated; R31.9 Hematuria, unspecified; Z82.49 Family history of ischemic heart disease and other diseases of the circulatory system; Z81.1 Family history of alcohol abuse and dependence; F10.21 Alcohol dependence, in remission; K42.9 Umbilical hernia without obstruction or gangrene; R21 Rash and other nonspecific skin eruption; W50.4XXA Accidental scratch by another person, initial encounter; Y93.89 Activity, other specified; Y92.238 Other place in hospital as the place of occurrence of the external cause; E83.119 Hemochromatosis, unspecified
CPT/HCPCS: 36430; 70450; 71010; 74176; 76937; 80048; 80053; 80178; 80202; 81001; 82140; 83605; 83690; 83735; 83880; 84100; 84597; 85025; 85240; 85379; 85384; 85610; 85730; 86850; 86900; 86901; 86920; 86927; 86965; 87040; 87086; 87641; 96367; 96368; 96375; G0378; J0692; J0696; J1940; J2405; J3370; J7040; J7050; J7510; P9016; P9017

== ENCOUNTER 2017-01-04 00:47 | Inpatient (IN) | payer MEDICAID ==
[~2017-01-04] VITALS: Ht 182.9 cm; Wt 104.5 kg
[2017-01-04] VITALS (13 sets, daily range): BP systolic 120–153; BP diastolic 58–79; PULSE 70–99; RESP 1–20; TEMP 98–99.3; O2SAT 95–98
[~2017-01-04 00:47] MED LIST changes: +CIPR-9 PO; +ESOM1CAP16 PO; +FOLI400T PO; +LACT10SO PO; -LITH300C2 PO; +MEDR4PAK PO; +NADO1TAB16 PO; -NADO20TA PO; +SPIR25TA PO; +VITA100T54 PO
--- NOTE | 2017-01-04 03:52 | PD ---
HPI Chief Complaint: Abdominal Pain Time Seen by Provider: 03:43 Travel History International Travel<30 days: No Contact w/Intl Traveler<30days: No Traveled to known affect area: No History of Present Illness HPI The patient is a 31-year-old male with apparent alcohol cirrhosis who complains of abdominal pressure. He was just discharged from this hospital 5 days ago. He was in the hospital because of low sodium and elevated ammonia. He was given 5 units of FFP and 3 units of blood. He denies any fever. PFSH Past Medical History Hx Anticoagulant Therapy: No Arthritis: No Bipolar Disorder: Yes Anxiety: Yes Depression: Yes Heart Rhythm Problems: No Cancer: No Cardiovascular Problems: Yes (ASCITES ) High Cholesterol: No Chest Pain: No Congestive Heart Failure: No Cirrhosis: Yes Cerebrovascular Accident: No Diabetes: No Diminished Hearing: No Endocrine: No Gastrointestinal Disorders: Yes GERD: Yes Genitourinary: No Hiatal Hernia: No Immune Disorder: No Musculoskeletal: Yes Neurologic: Yes Psychiatric: Yes (BIPOLAR) Reproductive: No Respiratory: No Migraines: No Seizures: No Sickle Cell Disease: No Ulcer: No Tetanus Vaccination: < 5 Years Influenza Vaccination: No Past Surgical History Abdominal Surgery: No Cardiac Surgery: No Ear Surgery: No Endocrine Surgery: No Eye Surgery: No Genitourinary Surgery: No Gynecologic Surgery: No Oral Surgery: Yes (JAW REPAIR AFTER BREAKING IT) Thoracic Surgery: No Other Surgery: Yes (paracentesis in august 2016) Social History Alcohol Use: Yes ( last drink 09/20/16) Tobacco Use: Yes (06/01 ppd) Substance Use: No Allergies-Medications (Allergen,Severity, Reaction): Coded Allergies: No Known Allergies (Unverified , 01/04/17) Reported Meds & Prescriptions Reported Meds & Active Scripts Active Corgard (Nadolol) 20 Mg Tab 20 Mg PO DAILY Furosemide 20 Mg Tab 20 Mg PO DAILY Klor-Con 10 (Potassium Chloride) 10 Meq Tab 10 Meq PO DAILY Reported Vitamin B-1 (Thiamine HCl) 100 Mg Tab 100 Mg PO DAILY Spironolactone 25 Mg Tab 25 Mg PO DAILY Lactulose Liq (Lactulose) 10 Gm/15 Ml Soln 30 Ml PO BID Folic Acid 400 Mcg Tab 1 Mg PO DAILY Esomeprazole DR 40 Mg Capdr 40 Mg PO DAILY Review of Systems Except as stated in HPI: all other systems reviewed are Neg Physical Exam Narrative GENERAL: The patient is alert, oriented 3 and slight apparent distress with his abdominal discomfort. His vital signs are normal. He does appear at least moderately dehydrated. SKIN: Focused skin assessment warm/dry. The patient appears jaundiced. Large ecchymotic areas are present over the left leg, scrotum, back and anterior chest. HEAD: Atraumatic. Normocephalic. EYES: Pupils equal and round. No scleral icterus. No injection or drainage. ENT: No nasal bleeding or discharge. Mucous membranes pink and moist. NECK: Trachea midline. No JVD. There is no meningismus present. CARDIOVASCULAR: Regular rate and rhythm. No murmur appreciated. RESPIRATORY: No accessory muscle use. Clear to auscultation. Breath sounds equal bilaterally. GASTROINTESTINAL: Abdomen soft, with slight generalized discomfort in all 4 quadrants, slightly distended. Hepatic and splenic margins not palpable. No guarding or rebound is present. MUSCULOSKELETAL: No obvious deformities. No clubbing. No cyanosis. No edema. NEUROLOGICAL: Awake and alert. No obvious cranial nerve deficits. Motor grossly within normal limits. Normal speech. PSYCHIATRIC: Appropriate mood and affect; insight and judgment normal. Data Data Last Documented VS Vital Signs Date Time Temp Pulse Resp B/P Pulse Ox O2 Delivery O2 Flow Rate FiO2 01/04/17 05:46 98 Room Air 01/04/17 05:44 83 18 150/77 01/04/17 01:01 98.8 Orders Complete Blood Count With Diff (01/04/17 03:43) Comprehensive Metabolic Panel (01/04/17 03:43) Prothrombin Time / Inr (Pt) (01/04/17 03:43) Act Partial Throm Time (Ptt) (01/04/17 03:43) Magnesium (Mg) (01/04/17 03:43) Ammonia (01/04/17 03:43) Lactic Acid Sepsis Protocol (01/04/17 05:24) Blood Culture (01/04/17 05:24) Urinalysis - C+S If Indicated (01/04/17 05:27) Ct Abd/Pel W Iv Contrast(Rout) (01/04/17 05:27) Iv Access Insert/Monitor (01/04/17 05:27) Ecg Monitoring (01/04/17 05:27) Oximetry (01/04/17 05:27) Sodium Chloride 0.9% Flush (Ns Flush) (01/04/17 05:30) Admit To Inpatient (01/04/17 ) Vital Signs (Adult) Q4H (01/04/17 05:31) Activity Oob With Assistance (01/04/17 05:31) Softball Umpire / Telemetry .CONTINUOUS (01/04/17 05:31) Diet Heart Healthy (01/04/17 Breakfast) Sodium Chloride 0.9% Flush (Ns Flush) (01/04/17 05:45) Sodium Chloride 0.9% Flush (Ns Flush) (01/04/17 09:00) Comprehensive Metabolic Panel (01/05/17 06:00) Complete Blood Count With Diff (01/05/17 06:00) Pt Request For Service (01/04/17 05:31) Case Management Consult (01/04/17 05:31) Naloxone Inj (Narcan Inj) (01/04/17 05:45) Inpatient Certification (01/04/17 ) Phytonadione (Mephyton) (01/04/17 09:00) Phytonadione (Mephyton) (01/04/17 05:45) Ceftriaxone Inj (Rocephin Inj) (01/04/17 06:00) Lipase (01/04/17 02:55) Sodium Chlor 0.9% 1000 Ml Inj (Ns 1000 M (01/04/17 05:45) Ondansetron Inj (Zofran Inj) (01/04/17 06:00) Labs Laboratory Tests Test 01/04/17 01/04/17 02:52 02:55 White Blood Count 21.9 TH/MM3 Red Blood Count 2.42 MIL/MM3 Hemoglobin 9.8 GM/DL Hematocrit 29.2 % Mean Corpuscular Volume 120.7 FL Mean Corpuscular Hemoglobin 40.6 PG Mean Corpuscular Hemoglobin 33.6 % Concent Red Cell Distribution Width 24.7 % Platelet Count 84 TH/MM3 Mean Platelet Volume 7.8 FL Neutrophils (%) (Auto) 78.4 % Lymphocytes (%) (Auto) 8.8 % Monocytes (%) (Auto) 9.6 % Eosinophils (%) (Auto) 0.7 % Basophils (%) (Auto) 2.5 % Neutrophils # (Auto) 17.2 TH/MM3 Lymphocytes # (Auto) 1.9 TH/MM3 Monocytes # (Auto) 2.1 TH/MM3 Eosinophils # (Auto) 0.2 TH/MM3 Basophils # (Auto) 0.5 TH/MM3 CBC Comment AUTO DIFF Differential Total Cells 100 Counted Neutrophils % (Manual) 90 % Lymphocytes % 3 % Monocytes % 6 % Eosinophils % 1 % Neutrophils # (Manual) 19.7 TH/MM3 Differential Comment FINAL DIFF MANUAL Hypersegmented Polys 1+ Platelet Estimate LOW Platelet Morphology Comment NORMAL Target Cells 1+ Ovalocytes 1+ Prothrombin Time 23.9 SEC Prothromb Time International 2.1 RATIO Ratio Activated Partial 30.7 SEC Thromboplast Time Sodium Level 134 MEQ/L Potassium Level 4.0 MEQ/L Chloride Level 99 MEQ/L Carbon Dioxide Level 27.3 MEQ/L Anion Gap 8 MEQ/L Blood Urea Nitrogen 16 MG/DL Creatinine 0.82 MG/DL Estimat Glomerular Filtration 109 ML/MIN Rate Random Glucose 99 MG/DL Calcium Level 8.3 MG/DL Magnesium Level 1.9 MG/DL Total Bilirubin 12.3 MG/DL Aspartate Amino Transf 103 U/L (AST/SGOT) Alanine Aminotransferase 59 U/L (ALT/SGPT) Alkaline Phosphatase 141 U/L Ammonia 75 MCMOL/L Total Protein 6.9 GM/DL Albumin 2.3 GM/DL Lipase 274 U/L [facility] Medical Decision Making Medical Screen Exam Complete: Yes Emergency Medical Condition: Yes Medical Record Reviewed: Yes Interpretation(s) The CBC shows a white count of 21,900 with a hemoglobin of 9.8 and hematocrit of 29.2. The platelet count is 84,000. The coagulation profile is abnormal with ProTime 23.9, INR 2.1, APTT of 30.7. The complete metabolic profile shows a sodium of 134, calcium 8.3, total bilirubin of 12.3 with AST of 103 and alkaline phosphatase 141 and ammonia level of 75 and albumin of 2.3. Differential Diagnosis Abdominal ascites requiring paracentesis, hepatic encephalopathy, electrolyte disorder, anemia, thrombocytopenia, sepsis Narrative Course The patient has abdominal ascites with probable sepsis. He also shows considerable ecchymotic areas that are enlarging and has a thrombocytopenia. He also has an elevated bilirubin level as well as ammonia level. Diagnosis Primary Impression: Sepsis Additional Impressions: Thrombocytopenia Hepatic encephalopathy Milton Perez MD Jan 04, 2017 03:52
[2017-01-04 04:02] LABS: AUTOMATED NEUTROPHIL # 17.2 TH/MM3 (1.8-7.7); BASOPHIL # 0.5 TH/MM3 (0-0.2); BASOPHIL % 2.5 % (0.0-2.0); EOSINOPHIL # 0.2 TH/MM3 (0-0.4); EOSINOPHIL % 0.7 % (0.0-4.0); HEMATOCRIT 29.2 % (39.0-51.0); LYMPH % 8.8 % (9.0-44.0); LYMPHOCYTE # 1.9 TH/MM3 (1.0-4.8); MEAN CELL VOLUME 120.7 FL (80.0-100.0); MEAN CORPUSCULAR HEMOGLOBIN 40.6 PG (27.0-34.0); MEAN CORPUSCULAR HGB CONC 33.6 % (32.0-36.0); MONO % 9.6 % (0.0-8.0); NEUT % 78.4 % (16.0-70.0); PLATELET COUNT 84 TH/MM3 (150-450); RED BLOOD COUNT 2.42 MIL/MM3 (4.50-5.90); RED CELL DISTRIBUTION WIDTH 24.7 % (11.6-17.2); WHITE BLOOD COUNT 21.9 TH/MM3 (4.0-11.0)
[2017-01-04 04:20] LABS: HEMO FLAGS AUTO DIFF
[2017-01-04 04:22] LABS: APTT (PATIENT) 30.7 SEC (24.3-30.1); INTERNATIONAL NORMALIZED RATIO 2.1 RATIO; PROTHROMBIN TIME - PATIENT 23.9 SEC (9.8-11.6)
[2017-01-04 04:37] LABS: CHLORIDE 99 MEQ/L (98-107); SODIUM (NA) 134 MEQ/L (136-145)
[2017-01-04 04:40] LABS: EOSINOPHILS 1 % (0-4); HYPERSEGMENTED POLYS 1+ (NORMAL); NEUTROPHIL # MANUAL DIFF 19.7 TH/MM3 (1.8-7.7); POLYS (SEG NEUTROPHILS) 90 % (16-70); WBC DIFF SAMPLE 100
[2017-01-04 04:41] LABS: OVALOCYTES 1+ (NORMAL)
[2017-01-04 04:41] LABS: ANION GAP 8 MEQ/L (5-15); BICARBONATE 27.3 MEQ/L (21.0-32.0); BLOOD UREA NITROGEN 16 MG/DL (7-18); MAGNESIUM 1.9 MG/DL (1.5-2.5)
[2017-01-04 04:42] LABS: PLATELET ESTIMATE SMEAR LOW (NORMAL); PLATELET MORPHOLOGY NORMAL (NORMAL); SCAN/DIFF FINAL DIFF MANUAL; TARGET CELLS 1+ (NORMAL)
[2017-01-04 04:44] LABS: ALT (GPT) 59 U/L (12-78); AST (GOT) 103 U/L (15-37); GLOMERULAR FILTRATION RATE 109 ML/MIN (>89)
[2017-01-04 04:45] LABS: TOTAL BILIRUBIN ADULT 12.3 MG/DL (0.2-1.0)
[2017-01-04 04:47] LABS: ALKALINE PHOSPHATASE 141 U/L (45-117)
[2017-01-04] MEDS ORDERED: SODIUM CHLORIDE 0.9% FLUSH 10 ML FLUSH IV FLUSH PRN ×2 (05:30→05:45)
[2017-01-04] MEDS ORDERED: NALOXONE HCL 0.4 MG/ML AMP IV PRN (05:45)
[2017-01-04] MEDS ORDERED: SODIUM CHLOR 0.9% 1000 ML INJ 1,000 ML IV SCH ×2 (05:45→06:00)
[2017-01-04] MEDS ORDERED: PHYTONADIONE 5 MG TAB PO ONE (05:45)
[2017-01-04] MEDS: cefTRIAXone INJ 1,000 MG in SODIUM CHLORIDE 0.9% INJ 100 ML IV SCH ×2 (05:51→16:56)
[2017-01-04] MEDS ORDERED: HYDROmorphone HCL PF 1 MG/ML VIAL IVP ONE (06:00)
[2017-01-04] MEDS ORDERED: ONDANSETRON HCL 4 MG/2 ML VIAL IV ONE ×2 (06:00)
[2017-01-04] MEDS ORDERED: IOHEXOL 350 MG/ML 10 ML VIAL (for RAD DIAG) IV ONE (06:02)
--- NOTE | 2017-01-04 06:20 | RADRPT ---
EXAM DATE/TIME: 01/04/2017 05:59 [facility] COMPARISON: CT ABDOMEN & PELVIS W CONTRAST, August 26, 2016, 0:10. INDICATIONS : Abdominal pain and distention. IV CONTRAST: 100 cc Omnipaque 350 (iohexol) IV ORAL CONTRAST: No oral contrast ingested. RADIATION DOSE: 19.59 CTDIvol (mGy) MEDICAL HISTORY : Cirrhosis. Gastroesophageal reflux disease. SURGICAL HISTORY : None. ENCOUNTER: Initial ACUITY: 2 days PAIN SCALE: 8/10 LOCATION: Bilateral abdomen. TECHNIQUE: Volumetric scanning of the abdomen and pelvis was performed. Using automated exposure control and ad justment of the mA and/or kV according to patient size, radiation dose was kept as low as reasonably achievable to obtain optimal diagnostic quality images. DICOM format image data is available electro nically for review and comparison. FINDINGS: Lung bases are clear. The osseous structures are intact. No pleural effusions are seen. There is a ci rrhotic appearing liver with a large amount of ascites identified, increased from the previous study. There is splenomegaly up to 14 cm in AP dimension. There is either a sludgeball within the gallbladd er lumen measuring 3.2 cm. The adrenals, kidneys, pancreas are unremarkable. Diffuse small bowel fold thickening identified likely related to the ascites. Similarly there is circumferential bowel wall t hickening involving the colon which is new from the previous study. This could be related to the asci joyce or colitis. There is body wall edema. There is no adenopathy or aneurysm. There is hepatomegaly. CONCLUSION: 1. Cirrhosis and portal hypertension with increase in ascites since the previous study. 2. A sludgeball is suspected within the gallbladder lumen. 3. Diffuse small bowel fold thickening noted and likely related to the ascites. 4. Interval development of diffuse colonic wall thickening most evident in the transverse colon. This can be seen with colitis or may be related to the ascites. There Abdirashid Tovar MD on January 04, 2017 at 6:15 Board Certified Radiologist. This report was verified electronically.
[2017-01-04] MEDS: SODIUM CHLORIDE 0.9% FLUSH 10 ML FLUSH IV FLUSH SCH ×2 (07:14→21:46)
[2017-01-04] MEDS ORDERED: PHYTONADIONE 5 MG TAB PO SCH (09:00)
[2017-01-04 10:34] LABS: BLOOD, URINE SMALL (NEG); GLUCOSE,URINE NEG (NEG); KETONE, URINE NEG (NEG); PH, URINE 5.5 (5.0-8.5)
[2017-01-04 10:35] LABS: NITRITE,URINE POS (NEG)
[2017-01-04 10:44] LABS: METHOD OF COLLECTION CLEAN CATCH
[2017-01-04 10:45] LABS: COMMENT (UR) CULT NOT INDICATED; CULTURE IF INDICATED CULT NOT INDICATED; SQUAMOUS EPITHELIAL CELL URINE 0-5 /hpf (0-5); URINE COLOR YELLOW (YELLW/STRAW); WBC, URINE 0-2 /hpf (0-5)
[2017-01-04] MEDS ORDERED: ONDANSETRON HCL 4 MG/2 ML VIAL IV PUSH PRN (10:45)
[2017-01-04] MEDS: HYDROmorphone HCL PF 1 MG/ML VIAL IV PUSH PRN ×3 (11:07→21:46)
--- NOTE | 2017-01-04 14:59 | HHI.HP ---
[facility] Primary Care Physician No Primary Care Physician Admission Diagnosis sepsis, hepatic encephalopathy, thrombocytopenia Diagnoses: Chief Complaint: Abdominal pain Travel History International Travel<30 Days: No Contact w/Intl Traveler <30 Da: No Traveled to Known Affected Are: No History of Present Illness Patient is a 31-year-old gentleman with a known history of alcoholic cirrhosis with significantly poor prognosis and high risk of mortality due to poor discriminate function. Patient again to the emergency room complaining of abdominal pressure and distention. He was discharged the hospital a few days ago were he was treated for of significant coagulopathy, elevated ammonia and hyponatremia. Patient improved after aggressive medical therapy. At that time and was discussed with the patient that his overall prognosis was for high mortality. Patient expressed understanding. He admits adherence with his medical treatment since his discharge and has come back to the hospital for further evaluation and to discuss his options long-term Review of Systems Constitutional: COMPLAINS OF: Fatigue, Weight gain, DENIES: Diaphoretic episodes, Fever, Weight loss, Chills, Dizziness, Change in appetite, Night Sweats Endocrine: DENIES: Heat/cold intolerance, Polydipsia, Polyuria, Polyphagia Eyes: DENIES: Blurred vision, Diplopia, Eye inflammation, Eye pain, Vision loss , Photosensitivity, Double Vision Ears, nose, mouth, throat: DENIES: Tinnitus, Hearing loss, Vertigo, Nasal discharge, Oral lesions, Throat pain, Hoarseness, Ear Pain, Running Nose, Epistaxis, Sinus Pain, Toothache, Odynophagia Respiratory: DENIES: Apneas, Cough, Snoring, Wheezing, Hemoptysis, Sputum production, Shortness of breath Cardiovascular: DENIES: Chest pain, Palpitations, Syncope, Dyspnea on Exertion , PND, Lower Extremity Edema, Orthopnea, Claudication Gastrointestinal: COMPLAINS OF: Abdominal pain, Constipation, DENIES: Black stools, Bloody stools, Diarrhea, Nausea, Vomiting, Difficulty Swallowing, Anorexia Genitourinary: DENIES: Sexual dysfunction, Urinary frequency, Urinary incontinence, Urgency, Hematuria, Dysuria, Nocturia, Penile Discharge, Testicular Pain, Testicular Swelling Musculoskeletal: DENIES: Joint pain, Muscle aches, Stiffness, Joint Swelling, Back pain, Neck pain Integumentary: DENIES: Abnormal pigmentation, Nail changes, Pruritus, Rash Hematologic/lymphatic: COMPLAINS OF: Bruising, DENIES: Lymphadenopathy Immunologic/allergic: DENIES: Eczema, Urticaria Neurologic: DENIES: Abnormal gait, Headache, Localized weakness, Paresthesias, Seizures, Speech Problems, Tremor, Poor Balance Psychiatric: DENIES: Anxiety, Confusion, Mood changes, Depression, Hallucinations, Agitation, Suicidal Ideation, Homicidal Ideation, Delusions Except as stated in HPI: all other systems reviewed are Neg Past Family Social History Past Medical History Liver failure Alcoholism Hemochromatosis Past Surgical History JAW surgery after trauma Reported Medications Reviewed in the medical record, recently discharged on new regimen Allergies: Coded Allergies: No Known Allergies (Unverified , 01/04/17) Active Ordered Medications Reviewed in the medical record Family History Hypertension and alcohol dependency Social History Smokes half a pack a day tobacco, , unemployed Physical Exam Vital Signs Vital Signs Date Time Temp Pulse Resp B/P Pulse Ox O2 Delivery O2 Flow Rate FiO2 01/04/17 11:11 98.4 80 18 123/72 01/04/17 10:15 83 16 127/60 96 01/04/17 09:10 76 16 132/72 96 Room Air 01/04/17 09:00 16 01/04/17 08:15 70 16 137/78 96 Room Air 01/04/17 07:05 98.1 84 16 131/64 96 Room Air 01/04/17 07:00 16 01/04/17 06:42 18 01/04/17 06:17 98.3 01/04/17 05:46 98 Room Air 01/04/17 05:44 83 18 150/77 98 Room Air 01/04/17 04:16 81 18 145/76 96 Room Air 01/04/17 01:46 71 18 153/58 97 01/04/17 01:01 98.8 74 16 142/72 97 Physical Exam GENERAL: This is a well-nourished, well-developed patient, in no apparent distress. SKIN: No rashes, ecchymoses or lesions. Cool and dry. HEAD: Atraumatic. Normocephalic. No temporal or scalp tenderness. EYES: Pupils equal round and reactive. Extraocular motions intact. No scleral icterus. No injection or drainage. ENT: Nose without bleeding, purulent drainage or septal hematoma. Throat without erythema, tonsillar hypertrophy or exudate. Uvula midline. Airway patent. NECK: Trachea midline. No JVD or lymphadenopathy. Supple, nontender, no meningeal signs. CARDIOVASCULAR: Regular rate and rhythm without murmurs, gallops, or rubs. RESPIRATORY: Clear to auscultation. Breath sounds equal bilaterally. No wheezes , rales, or rhonchi. GASTROINTESTINAL: Abdomen soft, non-tender, nondistended. No hepato-splenomegaly , or palpable masses. No guarding. MUSCULOSKELETAL: Extremities without clubbing, cyanosis, or edema. No joint tenderness, effusion, or edema noted. No calf tenderness. Negative Homans sign bilaterally. NEUROLOGICAL: Awake and alert. Cranial nerves II through XII intact. Motor and sensory grossly within normal limits. Five out of 5 muscle strength in all muscle groups. Normal speech. Laboratory Laboratory Tests Test 01/04/17 01/04/17 01/04/17 01/04/17 02:52 02:55 05:30 10:25 White Blood Count 21.9 Red Blood Count 2.42 Hemoglobin 9.8 Hematocrit 29.2 Mean Corpuscular Volume 120.7 Mean Corpuscular Hemoglobin 40.6 Mean Corpuscular Hemoglobin 33.6 Concent Red Cell Distribution Width 24.7 Platelet Count 84 Mean Platelet Volume 7.8 Neutrophils (%) (Auto) 78.4 Lymphocytes (%) (Auto) 8.8 Monocytes (%) (Auto) 9.6 Eosinophils (%) (Auto) 0.7 Basophils (%) (Auto) 2.5 Neutrophils # (Auto) 17.2 Lymphocytes # (Auto) 1.9 Monocytes # (Auto) 2.1 Eosinophils # (Auto) 0.2 Basophils # (Auto) 0.5 CBC Comment AUTO DIFF Differential Total Cells 100 Counted Neutrophils % (Manual) 90 Lymphocytes % 3 Monocytes % 6 Eosinophils % 1 Neutrophils # (Manual) 19.7 Differential Comment FINAL DIFF MANUAL Hypersegmented Polys 1+ Platelet Estimate LOW Platelet Morphology Comment NORMAL Target Cells 1+ Ovalocytes 1+ Prothrombin Time 23.9 Prothromb Time International 2.1 Ratio Activated Partial 30.7 Thromboplast Time Sodium Level 134 Potassium Level 4.0 Chloride Level 99 Carbon Dioxide Level 27.3 Anion Gap 8 Blood Urea Nitrogen 16 Creatinine 0.82 Estimat Glomerular Filtration 109 Rate Random Glucose 99 Calcium Level 8.3 Magnesium Level 1.9 Total Bilirubin 12.3 Aspartate Amino Transf 103 (AST/SGOT) Alanine Aminotransferase 59 (ALT/SGPT) Alkaline Phosphatase 141 Ammonia 75 Total Protein 6.9 Albumin 2.3 Lipase 274 Lactic Acid Level 1.9 Urine Collection Type CLEAN CATCH Urine Color YELLOW Urine Turbidity CLEAR Urine pH 5.5 Urine Specific [place] 1.035 Urine Protein TRACE Urine Glucose (UA) NEG Urine Ketones NEG Urine Occult Blood SMALL Urine Nitrite POS Urine Bilirubin MOD Urine Leukocyte Esterase NEG Urine RBC 4-9 Urine WBC 0-2 Urine Squamous Epithelial 0-5 Cells Microscopic Urinalysis Comment CULT NOT INDICATED Urine Collection Time 10:25 Date/Time Procedure Status Source Growth 01/04/17 05:35 Aerobic Blood Culture Received Blood Peripheral Pending 01/04/17 05:35 Anaerobic Blood Culture Received Blood Peripheral Pending Result Diagram: 01/04/17 0252 01/04/17 0255 Assessment and Plan Problem List: (1) Cirrhosis of liver with ascites ICD Code: K74.60 Status: Acute Plan: With poor overall prognosis and high risk for mortality given his advanced liver dysfunction and poor indices. Patient will need paracentesis however his PT is quite elevated. He will need FFP prior to this Follow his ammonia lactulose Continue home medications and increase his Aldactone Palliative eval Code Status full code Physician Certification 2 Midnight Certification Type: Admission for Inpatient Services Order for Inpatient Services The services are ordered in accordance with Medicare regulations or non- Medicare payer requirements, as applicable. In the case of services not specified as inpatient-only, they are appropriately provided as inpatient services in accordance with the 2-midnight benchmark. Estimated LOS (days): 3 3 days is the estimated time the patient will need to remain in the hospital, assuming treatment plan goals are met and no additional complications. Post-Hospital Plan: Home Violette Joyce MD Jan 04, 2017 14:59
[2017-01-04] MEDS: SPIRONOLACTONE 50 MG TAB PO SCH (15:16)
[2017-01-04] MEDS ORDERED: SODIUM CHLOR 0.9% 250 ML INJ 250 ML IV ONE (16:00)
--- NOTE | 2017-01-04 17:25 | PD.CONS ---
Consult Service Palliative Care Consult Requested By Dr. Joyce Primary Care Physician No Primary Care Physician Reason for Consultation a. To assist with evaluation and management of symptoms including: Nausea, abdominal pain, edema, lightheadedness b. To assist medical decision maker(s) with: better understanding of current medical conditions; weighing benefits/burdens of medical treatment options; making medical treatment decisions. HPI History of Present Illness This is a very pleasant 31-year-old male readmitted with nausea, lightheadedness, abdominal pain and edema. He has a known history of alcoholic liver cirrhosis, bipolar disorder, anxiety, depression H63D gene mutation, systemic iron overload with percent iron saturation greater than 85%, secondary to the gene mutation. He had paracentesis 3 weeks ago and now complains of increasing abdominal pressure. He has also developed significant dependent and testicular edema. He quit drinking 4 months ago. Continues to smoke lightly 1- 2 cigarettes per day. He is with 3 young boys ages 3, 7 and 10. He wishes to pursue evaluation at [facility] and possible liver transplant. ED course: Labs: CBC 21.9, hemoglobin 9.8, hematocrit 29.2, platelets 84, prothrombin time 23.9, INR 2.1, sodium 134, potassium 4.0, BUN 16, creatinine 0.82, total bilirubin 12.3, AST 103, ALT 59, ammonia 75, lipase 274. Radiology: CT of the abdomen and pelvis shows cirrhosis and portal hypertension with increase in ascites since previous study with suspected sludge ball in the gallbladder lumen. Diffuse small bowel fold thickening likely related to ascites with interval development of diffuse colonic wall thickening in the transverse colon, colitis versus ascites. In discussion with Mr. Nixon, he states he wants to live longer and spend time with his sons. He states his is very supportive in this but does wish to hear the options of palliative care and potentially hospice to facilitate further conversations for future care. Contact information was provided for further contact with the and information as requested. . Function/Cognitive Trajectory He previously worked in a [employer] business but due to his progressive debility is now unable to work. His mobility has decreased due to the weakness nausea and edema. He become short of breath with activity due to the increasing ascites. He did stop any intake of alcohol 4 months ago however has continued to decline. It is likely that without a liver transplant his condition will be terminal. Review of Systems Constitutional: COMPLAINS OF: Fatigue, Weight gain, Generalized weakness Endocrine: DENIES: Heat/cold intolerance, Polydipsia, Polyuria, Polyphagia Eyes: DENIES: Blurred vision, Diplopia, Eye inflammation, Eye pain, Vision loss , Photosensitivity, Double Vision, Blind spots Ears, nose, mouth, throat: DENIES: Tinnitus, Hearing loss, Vertigo, Nasal discharge, Oral lesions, Throat pain, Hoarseness, Ear Pain, Running Nose, Epistaxis, Sinus Pain, Toothache, Odynophagia Respiratory: COMPLAINS OF: Shortness of breath Cardiovascular: COMPLAINS OF: Dyspnea on Exertion, Lower Extremity Edema Gastrointestinal: COMPLAINS OF: Abdominal pain, Nausea, Vomiting Genitourinary: COMPLAINS OF: Testicular Swelling Musculoskeletal: COMPLAINS OF: Muscle aches, Back pain Integumentary: COMPLAINS OF: Abnormal pigmentation (jaundice) Hematologic/Lymphatics: COMPLAINS OF: Bruising, Prolonged bleed w/ proced, History of transfusions Immunologic/Allergic: DENIES: Eczema, Urticaria Neurologic: DENIES: Abnormal gait, Headache, Localized weakness, Paresthesias, Seizures, Speech Problems, Tremor, Poor Balance, Change in smell or taste Psychiatric: COMPLAINS OF: Anxiety, Depression Past Family Social History Coded Allergies: No Known Allergies (Unverified , 01/04/17) Past Medical History Liver failure Alcoholism Hemochromatosis H63D gene mutation Bipolar disorder Past Surgical History JAW surgery after trauma Paracentesis Reported Medications Reported Meds & Active Scripts Active Corgard (Nadolol) 20 Mg Tab 20 Mg PO DAILY Furosemide 20 Mg Tab 20 Mg PO DAILY Klor-Con 10 (Potassium Chloride) 10 Meq Tab 10 Meq PO DAILY Reported Vitamin B-1 (Thiamine HCl) 100 Mg Tab 100 Mg PO DAILY Lactulose Liq (Lactulose) 10 Gm/15 Ml Soln 30 Ml PO BID Folic Acid 400 Mcg Tab 1 Mg PO DAILY Esomeprazole DR 40 Mg Capdr 40 Mg PO DAILY Current Medications Medications (Trade) Dose Ordered Sig/Blayne Route Start Time Stop Time Status Last Admin (NS Flush) 2 ml UNSCH PRN IV FLUSH 01/04/17 05:45 (NS Flush) 2 ml BID IV FLUSH 01/04/17 09:00 01/04/17 07:14 Naloxone HCl 0.4 mg 0.4 mg UNSCH PRN IV 01/04/17 05:45 (Rocephin Inj/NS Inj) 100 ml @ 200 mls/hr Q12H IV 01/04/17 06:00 01/04/17 05:51 (Zofran Inj) 4 mg Q8HR PRN IV PUSH 01/04/17 10:45 01/04/17 11:07 (Dilaudid Pf Inj) 0.5 mg Q4H PRN IV PUSH 01/04/17 10:45 01/04/17 11:07 (Folate) 1 mg DAILY PO 01/05/17 09:00 (Lasix) 20 mg DAILY PO 01/05/17 09:00 (Lactulose Liq) 30 ml BID PO 01/04/17 21:00 (Corgard) 20 mg DAILY PO 01/05/17 09:00 (Vitamin B1) 100 mg DAILY PO 01/05/17 09:00 (Protonix) 40 mg DAILY PO 01/05/17 09:00 Spironolactone 50 mg 50 mg DAILY PO 01/04/17 15:00 01/04/17 15:16 (NS 250 ml Inj) 250 ml @ 15 mls/hr ONCE ONCE IV 01/04/17 16:00 01/05/17 08:39 Family History He found his mother from an overdose of opiates when she was 51 and he was a teenager. His father is alive at age 56 with a history of thyroid disorder, diabetes mellitus and bipolar disorder. Substance Use Tobacco: Smokes less than a quarter pack per day. Alcohol: Excessive alcohol use for many years with [employer] hard lemonade, drinking up to 12 a day. Prescription med abuse: Has a remote history of opioid abuse which occurred after finding his mother when he was a teenager. Illicits: No current use of illicit drugs Psychosocial History He was born in [place] near [place] and there most of his life. He moved to [place] about 18 months ago. He graduated high school in [place] and worked in [employer] for the next 15 years. After finding his mother from an opiate overdose, he fell and prescription drug abuse himself for several years and then stopped. He has been clean of prescription drug abuse for many years. Spiritual/Cultural Factors He has no spiritual affiliation. Living Will: Never completed Health Care Surrogate: Never completed Durable Power of Claims Administrator: Never completed Physical Exam Vital Signs Date Time Temp Pulse Resp B/P Pulse Ox O2 Delivery O2 Flow Rate FiO2 01/04/17 11:11 98.4 80 18 123/72 01/04/17 10:15 83 16 127/60 96 01/04/17 09:10 76 16 132/72 96 Room Air 01/04/17 09:00 16 01/04/17 08:15 70 16 137/78 96 Room Air 01/04/17 07:05 98.1 84 16 131/64 96 Room Air 01/04/17 07:00 16 01/04/17 06:42 18 01/04/17 06:17 98.3 01/04/17 05:46 98 Room Air 01/04/17 05:44 83 18 150/77 98 Room Air 01/04/17 04:16 81 18 145/76 96 Room Air 01/04/17 01:46 71 18 153/58 97 01/04/17 01:01 98.8 74 16 142/72 97 01/03/17 01/04/17 19:00 07:00 Output Total 600 ml Balance -600 ml Output Emesis 600 ml # Voids 3 Exam CONSTITUTIONAL/GENERAL: This is an adequately nourished patient, in no apparent distress. TUBES/LINES/DRAINS: LACF PIV SKIN: Skin is jaundiced with some scattered ecchymotic areas on the upper extremities. Multiple tattoos HEAD: Atraumatic. Normocephalic. Suture over right eyebrow after having small lesion opened which would not stop bleeding. EYES: Pupils equal and round and reactive. Extraocular motions intact. Scleral icterus. No injection or drainage. Fundi not examined. ENT: Hearing grossly normal. Nose without bleeding or purulent drainage. Throat without visible erythema, exudates, masses, or lesions. NECK: Trachea midline. Supple, nontender. No palpable thyroid enlargement or nodularity. CARDIOVASCULAR: Regular rate and rhythm without gallops, or rubs. 2/6 systolic ejection murmur heard best at the left sternal border. No JVD. Peripheral pulses symmetric. RESPIRATORY/CHEST: Symmetric, unlabored respirations. Clear to auscultation. Breath sounds equal bilaterally. No wheezes, rales, or rhonchi. GASTROINTESTINAL: Abdomen distended, tender to palpation, firm, not tight. GENITOURINARY: Without palpable bladder distension. Testicular edema. MUSCULOSKELETAL: Extremities without clubbing or cyanosis, 3+ pitting dependent edema. No joint tenderness or effusion noted. No calf tenderness. No mottling or clubbing. NEUROLOGICAL: Awake and alert. Motor and sensory grossly within normal limits. Follows commands. Cognitively sharp. Moves all extremities. PSYCHIATRIC: Appears generally depressed, no anxiety, no apparent hallucinations or other psychotic thought process. Diagnostic Tests Laboratory Laboratory Tests Test 01/04/17 01/04/17 01/04/17 01/04/17 02:52 02:55 05:30 10:25 White Blood Count 21.9 TH/MM3 (4.0-11.0) Red Blood Count 2.42 MIL/MM3 (4.50-5.90) Hemoglobin 9.8 GM/DL (13.0-17.0) Hematocrit 29.2 % (39.0-51.0) Mean Corpuscular Volume 120.7 FL (80.0-100.0) Mean Corpuscular Hemoglobin 40.6 PG (27.0-34.0) Mean Corpuscular Hemoglobin 33.6 % Concent (32.0-36.0) Red Cell Distribution Width 24.7 % (11.6-17.2) Platelet Count 84 TH/MM3 (150-450) Mean Platelet Volume 7.8 FL (7.0-11.0) Neutrophils (%) (Auto) 78.4 % (16.0-70.0) Lymphocytes (%) (Auto) 8.8 % (9.0-44.0) Monocytes (%) (Auto) 9.6 % (0.0-8.0) Eosinophils (%) (Auto) 0.7 % (0.0-4.0) Basophils (%) (Auto) 2.5 % (0.0-2.0) Neutrophils # (Auto) 17.2 TH/MM3 (1.8-7.7) Lymphocytes # (Auto) 1.9 TH/MM3 (1.0-4.8) Monocytes # (Auto) 2.1 TH/MM3 (0-0.9) Eosinophils # (Auto) 0.2 TH/MM3 (0-0.4) Basophils # (Auto) 0.5 TH/MM3 (0-0.2) CBC Comment AUTO DIFF Differential Total Cells 100 Counted Neutrophils % (Manual) 90 % (16-70) Lymphocytes % 3 % (9-44) Monocytes % 6 % (0-8) Eosinophils % 1 % (0-4) Neutrophils # (Manual) 19.7 TH/MM3 (1.8-7.7) Differential Comment FINAL DIFF MANUAL Hypersegmented Polys 1+ (NORMAL) Platelet Estimate LOW (NORMAL) Platelet Morphology Comment NORMAL (NORMAL) Target Cells 1+ (NORMAL) Ovalocytes 1+ (NORMAL) Prothrombin Time 23.9 SEC (9.8-11.6) Prothromb Time International 2.1 RATIO Ratio Activated Partial 30.7 SEC Thromboplast Time (24.3-30.1) Sodium Level 134 MEQ/L (136-145) Potassium Level 4.0 MEQ/L (3.5-5.1) Chloride Level 99 MEQ/L (98-107) Carbon Dioxide Level 27.3 MEQ/L (21.0-32.0) Anion Gap 8 MEQ/L (5-15) Blood Urea Nitrogen 16 MG/DL (7-18) Creatinine 0.82 MG/DL (0.60-1.30) Estimat Glomerular Filtration 109 ML/MIN Rate (>89) Random Glucose 99 MG/DL (74-106) Calcium Level 8.3 MG/DL (8.5-10.1) Magnesium Level 1.9 MG/DL (1.5-2.5) Total Bilirubin 12.3 MG/DL (0.2-1.0) Aspartate Amino Transf 103 U/L (15-37) (AST/SGOT) Alanine Aminotransferase 59 U/L (12-78) (ALT/SGPT) Alkaline Phosphatase 141 U/L (45-117) Ammonia 75 MCMOL/L (11-32) Total Protein 6.9 GM/DL (6.4-8.2) Albumin 2.3 GM/DL (3.4-5.0) Lipase 274 U/L (73-393) Lactic Acid Level 1.9 mmol/L (0.4-2.0) Urine Collection Type CLEAN CATCH Urine Color YELLOW (YELLW/STRAW) Urine Turbidity CLEAR (CLEAR) Urine pH 5.5 (5.0-8.5) Urine Specific [place] 1.035 (1.002-1.035) Urine Protein TRACE mg/dL (NEG-TRACE) Urine Glucose (UA) NEG mg/dL (NEG) Urine Ketones NEG mg/dL (NEG) Urine Occult Blood SMALL (NEG) Urine Nitrite POS (NEG) Urine Bilirubin MOD (NEG) Urine Leukocyte Esterase NEG (NEG) Urine RBC 4-9 /hpf (0-3) Urine WBC 0-2 /hpf (0-5) Urine Squamous Epithelial 0-5 /hpf (0-5) Cells Microscopic Urinalysis Comment CULT NOT INDICATED Urine Collection Time 10:25 Result Diagram: 01/04/17 0252 01/04/17 0255 Microbiology Microbiology Date/Time Procedure Status Source Growth 01/04/17 05:30 Aerobic Blood Culture Received Blood Peripheral Pending 01/04/17 05:30 Anaerobic Blood Culture Received Blood Peripheral Pending 01/04/17 05:35 Aerobic Blood Culture Received Blood Peripheral Pending 01/04/17 05:35 Anaerobic Blood Culture Received Blood Peripheral Pending Imaging Last Impressions Abdomen/Pelvis CT 01/04/17526 Signed Impressions: Service Date/Time: Monday, January 04, 2017 05:59 - CONCLUSION: 1. Cirrhosis and portal hypertension with increase in ascites since the previous study. 2. A sludgeball is suspected within the gallbladder lumen. 3. Diffuse small bowel fold thickening noted and likely related to the ascites. 4. Interval development of diffuse colonic wall thickening most evident in the transverse colon. This can be seen with colitis or may be related to the ascites. There Abdirashid Tovar MD Patient/Family Conference Issues Discussed: * Palliative care role, purpose, approach * Additional medical, psychosocial, and spiritual history * Patients general health, functional status, and cognitive changes in the months leading up to the current hospitalization * Patient/family understanding of the current medical problems * Patient/family understanding of prognosis * Patients goals of care as best understood from advance directives and/or conversations and/or values * Current medical treatment options and benefits/burdens of those options * Likely scenarios comparing ongoing aggressive care with a transition to comfort measures only * Questions answered to the best of my ability * Palliative care contact information provided Assessment and Plan Disease Oriented Problem List: (1) Acute low back pain with sciatica (2) Jaundice (3) Coagulopathy (4) Cirrhosis of liver with ascites Symptom Scale: (1) Nausea 0-10 Scale: Unable to quantify (2) Abdominal pain 0-10 Scale: Unable to quantify (3) Edema 0-10 Scale: Unable to quantify (4) Dizziness 0-10 Scale: Unable to quantify Pertinent Non-Medical Issues Psychosocial:He was born in [place] near [place] and there most of his life. He moved to [place] about 18 months ago. He graduated high school in [place] and worked in [employer] for the next 15 years. After finding his mother from an opiate overdose, he fell and prescription drug abuse himself for several years and then stopped. He has been clean of prescription drug abuse for many years. Spiritual: He has no spiritual affiliations. Legal: He is currently capacitated to make decisions on his own and states he wishes aggressive resuscitation unless that becomes futile. His would, by [place] law, be his healthcare proxy and he is happy with that decision. Ethical issues impacting care: None noted Important Contacts - Dee Nixon Prognosis His prognosis is poor. 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 He did quit drinking 4 months ago but has had no significant stabilization of his disease process. Plan is to follow-up with [facility] for evaluation and possible liver transplant if qualified. Without that transplant his disease is likely terminal. Code Status: Full Code Plan PLAN: Legal decision maker: Currently capacitated to make his own decisions. His would be decision-maker by proxy in case of incapacitation. He is aware and agreeable. Goals: Goals are currently aggressive. He wishes to live long enough to raise his children. CODE STATUS: FULL CODE SYMPTOMS: * Nausea - had intractable nausea and vomiting on admission, required several doses of Zofran but is now under control. Is likely at risk for continued nausea. Zofran available as needed. * Abdominal pain - abdominal pain likely due to recurrent ascites. Abdomen not tense but firm and distended. Will likely need paracentesis ongoing. * Edema - has significant 3+ edema to both legs extending up to the testicles. He is currently receiving Lasix 20 mg daily and spironolactone 50 mg daily. Would recommend Lasix be converted to IV temporarily until edema is better controlled. * Lightheadedness - occurs when standing, he is at risk for falls. Would continue fall precautions. In summary, this is a 31-year-old male with alcoholic cirrhosis compromised by H63D gene mutation and subsequent hemochromatosis. He does have an auscultated murmur which may be due to fluid volume excess versus valvular dysfunction. He will require ongoing paracentesis. His goals remain aggressive, which is reasonable in light of his young age and young children. He is interested in pursuing further workup with [facility] for possible liver transplant. His MELD score is 26. Palliative care will continue to follow the patient during hospital course as condition evolves, to assist patient/decision-maker with understanding of their medical conditions, weighing benefits/burdens of treatment options, for clarification of goals of treatment. Additionally will assist with any symptoms of palliative concern Thank you for the opportunity to participate in the care of Mr. Nixon. Attestation To help prompt me to consider important information that might be impacting today's encounter and assessment, information from prior notes written by myself or my colleagues may have been "brought forward" into today's note. My signature on this note, however, is an attestation that I personally performed the exam, history, and/or decision-making noted today, and, unless otherwise indicated, the interactions with patient, family, and staff as well as the review of records all occurred today. I also attest that the listed assessment and stated plan reflect my best clinical judgment today based on the combination of historical information, prior notes, and today's exam/ interactions. When time spent is documented, it refers only to time spent today by the signer, or if indicated, combined time spent today by collaborating physician/nurse practitioner. Chrystal Lopez Jan 04, 2017 17:25
[2017-01-04] MEDS: LACTULOSE SYRUP 20 GM/30 ML CUP PO SCH (21:39)
[2017-01-05] VITALS (8 sets, daily range): BP systolic 101–135; BP diastolic 59–82; PULSE 69–94; RESP 18–20; TEMP 97.2–99.7; O2SAT 94–99
[2017-01-05] MEDS: HYDROmorphone HCL PF 1 MG/ML VIAL IV PUSH PRN ×6 (02:02→21:53)
[2017-01-05] MEDS: cefTRIAXone INJ 1,000 MG in SODIUM CHLORIDE 0.9% INJ 100 ML IV SCH ×2 (06:12→17:12)
[2017-01-05 06:23] LABS: BASOPHIL # 0.5 TH/MM3 (0-0.2); BASOPHIL % 1.7 % (0.0-2.0); EOSINOPHIL # 0.7 TH/MM3 (0-0.4); EOSINOPHIL % 2.6 % (0.0-4.0); HEMATOCRIT 25.2 % (39.0-51.0); LYMPH % 9.9 % (9.0-44.0); LYMPHOCYTE # 2.8 TH/MM3 (1.0-4.8); MEAN CELL VOLUME 121.2 FL (80.0-100.0); MEAN CORPUSCULAR HEMOGLOBIN 40.9 PG (27.0-34.0); MEAN CORPUSCULAR HGB CONC 33.8 % (32.0-36.0); MONO % 6.4 % (0.0-8.0); NEUT % 79.4 % (16.0-70.0); PLATELET COUNT 70 TH/MM3 (150-450); RED BLOOD COUNT 2.08 MIL/MM3 (4.50-5.90); RED CELL DISTRIBUTION WIDTH 23.9 % (11.6-17.2); WHITE BLOOD COUNT 28.8 TH/MM3 (4.0-11.0)
[2017-01-05 06:26] LABS: CHLORIDE 99 MEQ/L (98-107); POTASSIUM 3.7 MEQ/L (3.5-5.1); SODIUM (NA) 134 MEQ/L (136-145)
[2017-01-05 06:36] LABS: ANION GAP 6 MEQ/L (5-15); BICARBONATE 29.4 MEQ/L (21.0-32.0); BLOOD UREA NITROGEN 20 MG/DL (7-18)
[2017-01-05 06:39] LABS: ALT (GPT) 51 U/L (12-78); AST (GOT) 84 U/L (15-37); GLOMERULAR FILTRATION RATE 110 ML/MIN (>89)
[2017-01-05 06:40] LABS: TOTAL BILIRUBIN ADULT 12.6 MG/DL (0.2-1.0)
[2017-01-05 06:41] LABS: ALKALINE PHOSPHATASE 115 U/L (45-117)
[2017-01-05 06:53] LABS: HEMO FLAGS AUTO DIFF
[2017-01-05 06:54] LABS: BASOPHILS 1 % (0-2); CORRECTED NUCLEATED RBC 1 /100 WBC (0-0); EOSINOPHILS 1 % (0-4); NEUTROPHIL # MANUAL DIFF 24.5 TH/MM3 (1.8-7.7); POLYS (SEG NEUTROPHILS) 85 % (16-70); SCAN/DIFF FINAL DIFF MANUAL; WBC DIFF SAMPLE 100
--- NOTE | 2017-01-05 08:57 | HHI.HCPN ---
Reason for visit a. To assist with evaluation and management of symptoms including: Nausea, abdominal pain, edema. b. To assist medical decision maker(s) with: better understanding of current medical conditions; weighing benefits/burdens of medical treatment options; making medical treatment decisions. Subjective/Interval History 31-year-old male with liver cirrhosis, MELD score 26, admitted for recurrent ascites, abdominal pain, intractable nausea and edema. Palliative care consulted for family communication and to establish goals of care. Goals were discussed with patient yesterday and due to his young age and being the father of 3 young boys under 10 he wishes to pursue aggressive care. This was discussed with his via telephone conference and she supports him in these goals. He is scheduled for paracentesis this morning. Labs: WBC increased from 21.9 01/04/17 to 28.8 today. Hemoglobin decreased from 9.8 to 8.5, hematocrit decreased from 29.2 to 25.2, platelets have declined from 84 to 70, total bilirubin has increased from 12.3 to 12.6. Paracentesis scheduled this morning. Family/friend interactions Patient requested that I speak with his as she had further questions. She was conferenced into the room by phone and updated as to patient's current labs and paracentesis. She also requested that GI be re-consulted. Patient had previously seen Dr. Almanzar and would like to continue care with him. Treatment follow-up for his H63D gene mutation was questioned and at the family' s request will also recommend reconsult Dr. Wang who had previously seen the patient. Family does wish to pursue more aggressive follow-up at [facility] and per the does have an appointment with them for that evaluation, however , the patient will need local medical follow-up to interact with the [place] team. Advance Directives Living Will: Never completed Health Care Surrogate: Never completed Durable Power of Manager Bar: Never completed Objective Vital Signs Date Time Temp Pulse Resp B/P Pulse Ox O2 Delivery O2 Flow Rate FiO2 01/05/17 08:33 97.2 94 19 135/82 94 01/05/17 05:45 98.4 79 20 121/81 97 01/05/17 05:19 97.7 85 20 127/74 99 01/05/17 04:00 97.7 85 20 127/74 99 01/05/17 00:00 98.5 92 20 118/68 94 01/04/17 20:00 98.0 99 20 125/79 95 01/04/17 17:42 18 01/04/17 16:00 99.3 95 18 120/76 97 01/04/17 11:11 98.4 80 18 123/72 01/04/17 10:15 83 16 127/60 96 01/04/17 09:10 76 16 132/72 96 Room Air 01/04/17 09:00 16 Intake & Output 01/05/17 01/05/17 07:00 19:00 Intake Total 1166 ml Output Total 200 ml Balance 966 ml Intake Oral 960 ml IV Total 206 ml Output Urine Total 200 ml # Voids 1 # Bowel Movements 1 Physical Exam CONSTITUTIONAL/GENERAL: This is an adequately nourished patient, in no apparent distress. TUBES/LINES/DRAINS: LACF PIV SKIN: Skin is jaundiced with some scattered ecchymotic areas on the upper extremities. Multiple tattoos HEAD: Atraumatic. Normocephalic. Suture over right eyebrow after having small lesion opened which would not stop bleeding, no erythema. EYES: Pupils equal and round and reactive. Extraocular motions intact. Scleral icterus. No injection or drainage. Fundi not examined. CARDIOVASCULAR: Regular rate and rhythm without gallops, or rubs. 2/6 systolic ejection murmur heard best at the left sternal border. No JVD. Peripheral pulses symmetric. RESPIRATORY/CHEST: Symmetric, unlabored respirations. Clear to auscultation. Breath sounds equal bilaterally. No wheezes, rales, or rhonchi. GASTROINTESTINAL: Abdomen distended, tender to palpation, firm, not tight. GENITOURINARY: Without palpable bladder distension. Testicular edema. MUSCULOSKELETAL: Extremities without clubbing or cyanosis, 3+ pitting dependent edema. No joint tenderness or effusion noted. No calf tenderness. No mottling or clubbing. NEUROLOGICAL: Awake and alert. Motor and sensory grossly within normal limits. Follows commands. Cognitively sharp. Moves all extremities. PSYCHIATRIC: Appears generally depressed, no anxiety, no apparent hallucinations or other psychotic thought process. Diagnostic Tests Laboratory Laboratory Tests Test 01/04/17 01/04/17 01/04/17 01/04/17 02:52 02:55 05:30 10:25 White Blood Count 21.9 TH/MM3 (4.0-11.0) Red Blood Count 2.42 MIL/MM3 (4.50-5.90) Hemoglobin 9.8 GM/DL (13.0-17.0) Hematocrit 29.2 % (39.0-51.0) Mean Corpuscular Volume 120.7 FL (80.0-100.0) Mean Corpuscular Hemoglobin 40.6 PG (27.0-34.0) Mean Corpuscular Hemoglobin 33.6 % Concent (32.0-36.0) Red Cell Distribution Width 24.7 % (11.6-17.2) Platelet Count 84 TH/MM3 (150-450) Mean Platelet Volume 7.8 FL (7.0-11.0) Neutrophils (%) (Auto) 78.4 % (16.0-70.0) Lymphocytes (%) (Auto) 8.8 % (9.0-44.0) Monocytes (%) (Auto) 9.6 % (0.0-8.0) Eosinophils (%) (Auto) 0.7 % (0.0-4.0) Basophils (%) (Auto) 2.5 % (0.0-2.0) Neutrophils # (Auto) 17.2 TH/MM3 (1.8-7.7) Lymphocytes # (Auto) 1.9 TH/MM3 (1.0-4.8) Monocytes # (Auto) 2.1 TH/MM3 (0-0.9) Eosinophils # (Auto) 0.2 TH/MM3 (0-0.4) Basophils # (Auto) 0.5 TH/MM3 (0-0.2) CBC Comment AUTO DIFF Differential Total Cells 100 Counted Neutrophils % (Manual) 90 % (16-70) Lymphocytes % 3 % (9-44) Monocytes % 6 % (0-8) Eosinophils % 1 % (0-4) Neutrophils # (Manual) 19.7 TH/MM3 (1.8-7.7) Differential Comment FINAL DIFF MANUAL Hypersegmented Polys 1+ (NORMAL) Platelet Estimate LOW (NORMAL) Platelet Morphology Comment NORMAL (NORMAL) Target Cells 1+ (NORMAL) Ovalocytes 1+ (NORMAL) Prothrombin Time 23.9 SEC (9.8-11.6) Prothromb Time International 2.1 RATIO Ratio Activated Partial 30.7 SEC Thromboplast Time (24.3-30.1) Sodium Level 134 MEQ/L (136-145) Potassium Level 4.0 MEQ/L (3.5-5.1) Chloride Level 99 MEQ/L (98-107) Carbon Dioxide Level 27.3 MEQ/L (21.0-32.0) Anion Gap 8 MEQ/L (5-15) Blood Urea Nitrogen 16 MG/DL (7-18) Creatinine 0.82 MG/DL (0.60-1.30) Estimat Glomerular Filtration 109 ML/MIN Rate (>89) Random Glucose 99 MG/DL (74-106) Calcium Level 8.3 MG/DL (8.5-10.1) Magnesium Level 1.9 MG/DL (1.5-2.5) Total Bilirubin 12.3 MG/DL (0.2-1.0) Aspartate Amino Transf 103 U/L (15-37) (AST/SGOT) Alanine Aminotransferase 59 U/L (12-78) (ALT/SGPT) Alkaline Phosphatase 141 U/L (45-117) Ammonia 75 MCMOL/L (11-32) Total Protein 6.9 GM/DL (6.4-8.2) Albumin 2.3 GM/DL (3.4-5.0) Lipase 274 U/L (73-393) Lactic Acid Level 1.9 mmol/L (0.4-2.0) Urine Collection Type CLEAN CATCH Urine Color YELLOW (YELLW/STRAW) Urine Turbidity CLEAR (CLEAR) Urine pH 5.5 (5.0-8.5) Urine Specific [place] 1.035 (1.002-1.035) Urine Protein TRACE mg/dL (NEG-TRACE) Urine Glucose (UA) NEG mg/dL (NEG) Urine Ketones NEG mg/dL (NEG) Urine Occult Blood SMALL (NEG) Urine Nitrite POS (NEG) Urine Bilirubin MOD (NEG) Urine Leukocyte Esterase NEG (NEG) Urine RBC 4-9 /hpf (0-3) Urine WBC 0-2 /hpf (0-5) Urine Squamous Epithelial 0-5 /hpf (0-5) Cells Microscopic Urinalysis Comment CULT NOT INDICATED Urine Collection Time 10:25 Test 01/04/17 01/05/17 15:55 05:55 Blood Bank Comment White Blood Count 28.8 TH/MM3 (4.0-11.0) Red Blood Count 2.08 MIL/MM3 (4.50-5.90) Hemoglobin 8.5 GM/DL (13.0-17.0) Hematocrit 25.2 % (39.0-51.0) Mean Corpuscular Volume 121.2 FL (80.0-100.0) Mean Corpuscular Hemoglobin 40.9 PG (27.0-34.0) Mean Corpuscular Hemoglobin 33.8 % Concent (32.0-36.0) Red Cell Distribution Width 23.9 % (11.6-17.2) Platelet Count 70 TH/MM3 (150-450) Mean Platelet Volume 7.6 FL (7.0-11.0) Neutrophils (%) (Auto) 79.4 % (16.0-70.0) Lymphocytes (%) (Auto) 9.9 % (9.0-44.0) Monocytes (%) (Auto) 6.4 % (0.0-8.0) Eosinophils (%) (Auto) 2.6 % (0.0-4.0) Basophils (%) (Auto) 1.7 % (0.0-2.0) Neutrophils # (Auto) 23.0 TH/MM3 (1.8-7.7) Lymphocytes # (Auto) 2.8 TH/MM3 (1.0-4.8) Monocytes # (Auto) 1.8 TH/MM3 (0-0.9) Eosinophils # (Auto) 0.7 TH/MM3 (0-0.4) Basophils # (Auto) 0.5 TH/MM3 (0-0.2) CBC Comment AUTO DIFF Differential Total Cells 100 Counted Neutrophils % (Manual) 85 % (16-70) Lymphocytes % 10 % (9-44) Monocytes % 3 % (0-8) Eosinophils % 1 % (0-4) Basophils % 1 % (0-2) Neutrophils # (Manual) 24.5 TH/MM3 (1.8-7.7) Nucleated Red Blood Cells 1 /100 WBC (0-0) Differential Comment FINAL DIFF MANUAL Sodium Level 134 MEQ/L (136-145) Potassium Level 3.7 MEQ/L (3.5-5.1) Chloride Level 99 MEQ/L (98-107) Carbon Dioxide Level 29.4 MEQ/L (21.0-32.0) Anion Gap 6 MEQ/L (5-15) Blood Urea Nitrogen 20 MG/DL (7-18) Creatinine 0.81 MG/DL (0.60-1.30) Estimat Glomerular Filtration 110 ML/MIN Rate (>89) Random Glucose 110 MG/DL (74-106) Calcium Level 8.1 MG/DL (8.5-10.1) Total Bilirubin 12.6 MG/DL (0.2-1.0) Aspartate Amino Transf 84 U/L (15-37) (AST/SGOT) Alanine Aminotransferase 51 U/L (12-78) (ALT/SGPT) Alkaline Phosphatase 115 U/L (45-117) Total Protein 6.1 GM/DL (6.4-8.2) Albumin 2.1 GM/DL (3.4-5.0) Result Diagram: 01/05/17 0555 01/05/17 0555 Microbiology Microbiology Date/Time Procedure Status Source Growth 01/04/17 05:30 Aerobic Blood Culture Received Blood Peripheral Pending 01/04/17 05:30 Anaerobic Blood Culture Received Blood Peripheral Pending 01/04/17 05:35 Aerobic Blood Culture Received Blood Peripheral Pending 01/04/17 05:35 Anaerobic Blood Culture Received Blood Peripheral Pending Imaging Last Impressions Abdomen/Pelvis CT 01/04/17 0527 Signed Impressions: Service Date/Time: Wednesday, January 04, 2017 05:59 - CONCLUSION: 1. Cirrhosis and portal hypertension with increase in ascites since the previous study. 2. A sludgeball is suspected within the gallbladder lumen. 3. Diffuse small bowel fold thickening noted and likely related to the ascites. 4. Interval development of diffuse colonic wall thickening most evident in the transverse colon. This can be seen with colitis or may be related to the ascites. There Abdirashid Tovar MD Procedures 01/05/17-paracentesis Assessment and Plan Disease Oriented Problem List: (1) Acute low back pain with sciatica (2) Jaundice (3) Coagulopathy (4) Cirrhosis of liver with ascites Symptom Scale: (1) Nausea 0-10 Scale: Unable to quantify (2) Abdominal pain 0-10 Scale: Unable to quantify (3) Edema 0-10 Scale: Unable to quantify (4) Dizziness 0-10 Scale: Unable to quantify Pertinent Non-Medical Issues Psychosocial:He was born in [place] near [place] and there most of his life. He moved to [place] about 18 months ago. He graduated high school in [place] and worked in [employer] for the next 15 years. After finding his mother from an opiate overdose, he fell and prescription drug abuse himself for several years and then stopped. He has been clean of prescription drug abuse for many years. Spiritual: He has no spiritual affiliations. Legal: He is currently capacitated to make decisions on his own and states he wishes aggressive resuscitation unless that becomes futile. His would, by [place] law, be his healthcare proxy and he is happy with that decision. Ethical issues impacting care: None noted Important Contacts - Dee Nixon Prognosis His prognosis is poor. 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 He did quit drinking 4 months ago but has had no significant stabilization of his disease process. Plan is to follow-up with [facility] for evaluation and possible liver transplant if qualified. Without that transplant his disease is likely terminal. Code Status: Full Code Plan PLAN: Legal decision maker: Currently capacitated to make his own decisions. His would be decision-maker by proxy in case of incapacitation. He is aware and agreeable. Goals: Goals are currently aggressive. He wishes to live long enough to raise his children. CODE STATUS: FULL CODE SYMPTOMS: * Nausea - had intractable nausea and vomiting on admission, required several doses of Zofran but is now under control. Is likely at risk for continued nausea. Zofran available as needed. * Abdominal pain - abdominal pain likely due to recurrent ascites. Abdomen not tense but firm and distended. Undergoing paracentesis today. Patient desires follow-up with [facility] for further evaluation of his liver disease and his genetic mutation. As he has previously seen Dr. Phelps for GI and Dr. Colón for hematology and would prefer to continue care with those physicians, would recommend GI and hematology consult to provide continuation of care with the [place] team. Per his patient does have an appointment with [facility] scheduled. * Edema - has significant 3+ edema to both legs extending up to the testicles. He is currently receiving Lasix 20 mg daily and spironolactone 50 mg daily. Would recommend Lasix be converted to IV temporarily until edema is better controlled. In summary, this is a 31-year-old male with alcoholic cirrhosis compromised by H63D gene mutation and subsequent hemochromatosis. Due to his young age and his young children, goals remain aggressive. Palliative care will continue to follow for assistance in symptom control and family communication and support. Palliative care will continue to follow the patient during hospital course as condition evolves, to assist patient/decision-maker with understanding of their medical conditions, weighing benefits/burdens of treatment options, for clarification of goals of treatment. Additionally will assist with any symptoms of palliative concern Attestation To help prompt me to consider important information that might be impacting today's encounter and assessment, information from prior notes written by myself or my colleagues may have been "brought forward" into today's note. My signature on this note, however, is an attestation that I personally performed the exam, history, and/or decision-making noted today, and, unless otherwise indicated, the interactions with patient, family, and staff as well as the review of records all occurred today. I also attest that the listed assessment and stated plan reflect my best clinical judgment today based on the combination of historical information, prior notes, and today's exam/ interactions. When time spent is documented, it refers only to time spent today by the signer, or if indicated, combined time spent today by collaborating physician/nurse practitioner. Chrystal Lopez Jan 05, 2017 8:57 am
[2017-01-05] MEDS ORDERED: PHYTONADIONE 5 MG TAB PO SCH (09:00)
[2017-01-05] MEDS ORDERED: LIDOCAINE HCL 1% 50 ML VIAL ONE (09:04)
--- NOTE | 2017-01-05 10:02 | RADRPT ---
EXAM DATE/TIME: 01/05/2017 08:30 [facility] COMPARISON: US GUIDED ABD PARACENTESIS, August 31, 2016, 8:41. INDICATIONS : Ascites. MEDICAL HISTORY : Cirrhosis. Hepatitis C. Dizziness. Dyspnea. Abdominal pain. Bipolar disorder. Depression. Anxiety. B lood dyscrasias. Thrombocytopenia. SURGICAL HISTORY : Jaw repair. Perforated disc. Paracentesis. ENCOUNTER: Initial ACUITY: 4 - 6 months PAIN SCORE: 7/10 LOCATION: Right lower quadrant FLUID: Total volume of 5,300 cc of clear, yellow fluid was removed. Fluid was sent to lab for ordered studies. Post procedure scanning reveals no hematoma or other complication. TECHNIQUE: 1. Ultrasound guidance for abdominal paracentesis. 2. Paracentesis. The risks, benefits, and alternatives to ultrasound guided paracentesis were explained to the patient in detail including the risk of bleeding and infection. Written and verbal informed consent was obt ained. With the patient on the ultrasound table, ultrasound imaging was used to select the most appropriate approach for paracentesis. Overlying skin was prepped and draped in the usual sterile fashion and wi th a local anesthetic, a dermatotomy was made with an 11 blade scalpel. A 6 [place] ca theter was introduced into the peritoneal cavity and fluid was collected. The patient tolerated the procedure well and left the ultrasound suite in stable condition. CONCLUSION: Uncomplicated ultrasound guided paracentesis. Franki Aguirre Jr., MD on January 05, 2017 at 10:00 Board Certified Radiologist. This report was verified electronically.
[2017-01-05] MEDS: SODIUM CHLORIDE 0.9% FLUSH 10 ML FLUSH IV FLUSH SCH ×2 (10:23→21:52)
[2017-01-05] MEDS: SPIRONOLACTONE 50 MG TAB PO SCH (10:23)
[2017-01-05] MEDS: THIAMINE HCL 100 MG TAB PO SCH (10:23)
[2017-01-05] MEDS: FUROSEMIDE 20 MG TAB PO SCH (10:23)
[2017-01-05] MEDS: PANTOPRAZOLE SOD 40 MG DELAYED RELEASE TAB PO SCH (10:23)
[2017-01-05] MEDS: NADOLOL 20 MG TAB PO SCH (10:23)
[2017-01-05] MEDS: LACTULOSE SYRUP 20 GM/30 ML CUP PO SCH ×2 (10:23→21:51)
[2017-01-05] MEDS: FOLIC ACID 1 MG TAB PO SCH (10:25)
[2017-01-05] MEDS ORDERED: ALBUMIN HUMAN 25% 25GM-W/12.5GM FOR 37.5GM IV ONE (11:15)
[2017-01-05] MEDS ORDERED: ALBUMIN HUMAN 25% 12.5GM-W/25GM FOR 37.5GM IV ONE (11:15)
[2017-01-05] MEDS ORDERED: VANCOMYCIN INJ 1,000 MG in SODIUM CHLOR 0.9% 250 ML INJ 250 ML IV SCH (12:30)
[2017-01-05] MEDS ORDERED: Vancomycin Consult Pharmacy 1 EA OTHER SCH (12:30)
--- NOTE | 2017-01-05 13:18 | HHI.PR ---
Subjective Remarks Patient seen in follow up for ESLD and ascites with abd pain 5.3 liters removed (ptn given ffp) Feels better and more alert today BC positive for G + cocci, ascites pending culture and gram stain Objective Vitals Vital Signs Date Time Temp Pulse Resp B/P Pulse Ox O2 Delivery O2 Flow Rate FiO2 01/05/17 12:25 98.3 80 19 117/64 95 01/05/17 10:58 18 01/05/17 08:33 97.2 94 19 135/82 94 01/05/17 05:45 98.4 79 20 121/81 97 01/05/17 05:19 97.7 85 20 127/74 99 01/05/17 04:00 97.7 85 20 127/74 99 01/05/17 00:00 98.5 92 20 118/68 94 01/04/17 20:00 98.0 99 20 125/79 95 01/04/17 16:00 99.3 95 18 120/76 97 I/O 01/04/17 01/04/17 01/04/17 01/05/17 01/05/17 01/05/17 07:00 15:00 23:00 07:00 15:00 23:00 Intake Total 2290 ml 0 ml 1166 ml Output Total 600 ml 200 ml Balance -600 ml 2290 ml 0 ml 966 ml Intake Oral 290 ml 0 ml 960 ml IV Total 2000 ml 206 ml Output Urine Total 200 ml Emesis 600 ml # Voids 3 0 1 # Bowel Movements 0 1 Result Diagram: 01/05/17 0555 01/05/17 0555 Imaging Last Impressions Cyst Biopsy Asp-Paracentesis US 01/05/17 0000 Signed Impressions: Service Date/Time: December 08:30 - CONCLUSION: Uncomplicated ultrasound guided paracentesis. Franki Aguirre Jr., MD Abdomen/Pelvis CT 01/04/17 0527 Signed Impressions: Service Date/Time: Wednesday, January 04, 2017 05:59 - CONCLUSION: 1. Cirrhosis and portal hypertension with increase in ascites since the previous study. 2. A sludgeball is suspected within the gallbladder lumen. 3. Diffuse small bowel fold thickening noted and likely related to the ascites. 4. Interval development of diffuse colonic wall thickening most evident in the transverse colon. This can be seen with colitis or may be related to the ascites. There Abdirashid A. Guy, MD Objective Remarks GENERAL: This is a well-nourished, well-developed patient, jaundiced, scattered ecchymosis CARDIOVASCULAR: Regular rate and rhythm without murmurs, gallops, or rubs. RESPIRATORY: Clear to auscultation. Breath sounds equal bilaterally. No wheezes , rales, or rhonchi. GASTROINTESTINAL: Abdomen soft, non-tender, mildly distended. Normal active bowel sounds MUSCULOSKELETAL: Extremities without clubbing, cyanosis, or edema. NEURO: Alert & Oriented x4 to person, place, time, situation. Moves all ext x4 A/P Problem List: (1) Cirrhosis of liver with ascites ICD Code: K74.60 Status: Acute Plan: With poor overall prognosis and high risk for mortality given his advanced liver dysfunction and poor indices (etoh and hemochromatosis). s/p ffp for paracentesis of 5.3 L Follow his ammonia after lactulose Continue home medications and increase his Aldactone Palliative eval appreciated (2) Bacteremia ICD Code: R78.81 Status: Acute Plan: G + cocc in anerobic cultures Patient on empiric vanco/rocephin ID consultpending (3) Leukocytosis ICD Code: D72.829 Status: Acute Plan: persistent and chronically elevated follow trend with new infection (4) Coagulopathy ICD Code: D68.9 Status: Acute Plan: blood products as indicated follow thrombocytopenia no active bleeding Patient was in [facility]IC at last admission Violette Joyce MD Jan 05, 2017 13:18
[2017-01-05] MEDS: VANCOMYCIN INJ 1,500 MG in SODIUM CHLORID 0.9% 500 ML INJ 500 ML IV SCH ×2 (13:27→21:52)
[2017-01-06] VITALS: BP 116/63; PULSE 93; RESP 16; TEMP 100; O2SAT 97
[2017-01-06] MEDS: HYDROmorphone HCL PF 1 MG/ML VIAL IV PUSH PRN ×5 (03:18→21:13)
[2017-01-06] MEDS: cefTRIAXone INJ 1,000 MG in SODIUM CHLORIDE 0.9% INJ 100 ML IV SCH ×2 (05:57→18:01)
[2017-01-06 06:39] LABS: AUTOMATED NEUTROPHIL # 13.3 TH/MM3 (1.8-7.7); BASOPHIL # 0.5 TH/MM3 (0-0.2); BASOPHIL % 3.1 % (0.0-2.0); EOSINOPHIL # 0.9 TH/MM3 (0-0.4); EOSINOPHIL % 5.1 % (0.0-4.0); HEMATOCRIT 22.6 % (39.0-51.0); LYMPH % 8.4 % (9.0-44.0); LYMPHOCYTE # 1.4 TH/MM3 (1.0-4.8); MEAN CELL VOLUME 120.7 FL (80.0-100.0); MEAN CORPUSCULAR HEMOGLOBIN 40.3 PG (27.0-34.0); MEAN CORPUSCULAR HGB CONC 33.3 % (32.0-36.0); MONO % 6.2 % (0.0-8.0); NEUT % 77.2 % (16.0-70.0); PLATELET COUNT 50 TH/MM3 (150-450); RED BLOOD COUNT 1.88 MIL/MM3 (4.50-5.90); RED CELL DISTRIBUTION WIDTH 22.8 % (11.6-17.2); WHITE BLOOD COUNT 17.2 TH/MM3 (4.0-11.0)
[2017-01-06] MEDS: VANCOMYCIN INJ 1,500 MG in SODIUM CHLORID 0.9% 500 ML INJ 500 ML IV SCH ×2 (06:41→13:42)
[2017-01-06 06:44] LABS: INTERNATIONAL NORMALIZED RATIO 1.8 RATIO; PROTHROMBIN TIME - PATIENT 20.6 SEC (9.8-11.6)
[2017-01-06 06:46] LABS: HEMO FLAGS AUTO DIFF
[2017-01-06 07:16] LABS: PLATELET ESTIMATE SMEAR LOW (NORMAL); PLATELET MORPHOLOGY NORMAL (NORMAL); SCAN/DIFF AUTO DIFF CONFIRMED
[2017-01-06 08:15] VITALS: BP 122/73; PULSE 90; RESP 19; TEMP 98.7; O2SAT 93
[2017-01-06] MEDS: SODIUM CHLORIDE 0.9% FLUSH 10 ML FLUSH IV FLUSH SCH ×2 (09:00→21:12)
[2017-01-06] MEDS: NADOLOL 20 MG TAB PO SCH (09:43)
[2017-01-06] MEDS: FUROSEMIDE 20 MG TAB PO SCH (09:43)
[2017-01-06] MEDS: SPIRONOLACTONE 50 MG TAB PO SCH (09:43)
[2017-01-06] MEDS: THIAMINE HCL 100 MG TAB PO SCH (09:43)
[2017-01-06] MEDS: LACTULOSE SYRUP 20 GM/30 ML CUP PO SCH ×2 (09:43→21:13)
[2017-01-06] MEDS: PANTOPRAZOLE SOD 40 MG DELAYED RELEASE TAB PO SCH (09:43)
[2017-01-06] MEDS: FOLIC ACID 1 MG TAB PO SCH (09:44)
[2017-01-06] MEDS ORDERED: SPIR25 PO (11:37)
[2017-01-06 12:00] VITALS: BP 121/66; PULSE 102; RESP 20; TEMP 99.3; O2SAT 96
[2017-01-06 13:40] LABS: CHLORIDE 101 MEQ/L (98-107); POTASSIUM 3.3 MEQ/L (3.5-5.1); SODIUM (NA) 135 MEQ/L (136-145)
--- NOTE | 2017-01-06 13:44 | MB ---
cc: MAC VALERO M.D. DATE OF CONSULTATION: 01/06/2017 DATE OF : 1985 REASON FOR CONSULTATION: 1. Abdominal pain. 2. Ascites. 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 The patient was in the hospital recently he had been discharged about a week ago. He was supposed to go to [facility] because he wanted to evaluate for possible liver transplant. The patient came complaining of abdominal pain and more distention of his abdomen. He has abdominal discomfort and distension. He had a positive blood culture and he was tapped yesterday with paracentesis and 5.3 liters were removed. He is currently doing better, less abdominal discomfort, no pain and overall he feels better. He is still severely jaundiced. He denied any alcohol since he left. FAMILY HISTORY: Family history of diabetes and bipolar disorder. SOCIAL HISTORY: He smokes on a daily basis and use to be a very heavy drinker until very recently. REVIEW OF SYSTEMS The patient complained of general fatigue and jaundice distended abdomen and weakness, otherwise all 12-point negative except HPI. PAST SURGICAL HISTORY Jaw surgery the past and he says PAST MEDICAL HISTORY 1. Significant for alcohol liver disease, end-stage. 2. hemochromatosis. 3. H63D gene mutation. 4. Bipolar disorder. PHYSICAL EXAMINATION IN GENERAL: Alert, oriented no acute distress at this time. Severely jaundiced with clear icterus. NECK: The neck is supple. CHEST: The chest is clear to auscultation and percussion. CARDIAC: Cardiac Regular rate and rhythm. ABDOMEN: Soft, still has mild ascites but less distended then the last time I saw him a few weeks ago. He said that and much less. EXTREMITIES: +1 edema. PSYCHIATRIC: Psychologically appropriate. NEUROLOGIC: Neurologically intact. Alert, oriented. LABORATORY DATA white count 17.2, down from 28.8, hemoglobin 7.6, platelet to 15, INR 1.8, total bilirubin 12.6, AST 84, ALT 51. The patient has rhythm. Groove time to the next the patient had paracentesis and CT scan showed significant cirrhosis with increased amount of ascites from last time diffuse small bowel beginning most likely related to his also colon wall thickening ASSESSMENT/PLAN 1. 31-year-old male with end-stage liver disease secondary to alcohol, possible chronic cirrhosis. The patient has been going to [facility] for evaluation for possible transplant. He had septicemia, he was started on antibiotics. 2. Continue supportive care for cirrhosis with diuretics and lactulose. 3. We will see how he is doing but there is really a poor prognosis. Unless the patient gets a transplant. MD IRENE Ross/nereida /12:23 PM /1:07 PM
[2017-01-06 13:45] LABS: ANION GAP 6 MEQ/L (5-15); BICARBONATE 27.7 MEQ/L (21.0-32.0); BLOOD UREA NITROGEN 14 MG/DL (7-18)
[2017-01-06] MEDS ORDERED: VANCOMYCIN TROUGH ONE (13:45)
[2017-01-06 13:48] LABS: ALT (GPT) 43 U/L (12-78); AST (GOT) 73 U/L (15-37); GLOMERULAR FILTRATION RATE 104 ML/MIN (>89)
[2017-01-06 13:49] LABS: TOTAL BILIRUBIN ADULT 10.9 MG/DL (0.2-1.0)
[2017-01-06 13:51] LABS: ALKALINE PHOSPHATASE 97 U/L (45-117)
--- NOTE | 2017-01-06 14:21 | HHI.HCPN ---
Reason for visit a. To assist with evaluation and management of symptoms including: Nausea, abdominal pain, edema. b. To assist medical decision maker(s) with: better understanding of current medical conditions; weighing benefits/burdens of medical treatment options; making medical treatment decisions. Subjective/Interval History 31-year-old male with liver cirrhosis, MELD score 23, status post paracentesis of 5.3 L 8/10, feeling better. He required 1 unit of FFP prior to the procedure. Has developed positive blood cultures for viridans Streptococcus, sensitivity pending, ID consult pending. Seen by Dr. Alas for GI who states that without a transplant patient has a very poor prognosis. Labs: PT/INR 20.6/1.8, WBC 17.2, hemoglobin 7.6, hematocrit 22.6, platelets 50, sodium 135, potassium 3.3, BUN 14, creatinine 0.85, calcium 7.8, total bilirubin 10.9, ammonia 12. Peritoneal fluid culture is pending. He had a previously made appointment for January 11, next Monday, at [facility] to be evaluated for management of both his liver failure and his genetic disorder and to be considered for a liver transplant. His discharge course has been complicated by a positive blood culture but he states there is some consideration of a direct transfer to [facility] from [place] for that workup. . Advance Directives Living Will: Never completed Health Care Surrogate: Never completed Durable Power of Dispensing Audiologist: Never completed Objective Vital Signs Date Time Temp Pulse Resp B/P Pulse Ox O2 Delivery O2 Flow Rate FiO2 01/06/17 12:00 99.3 102 20 121/66 96 01/06/17 08:15 98.7 90 19 122/73 93 01/06/17 00:00 100.0 93 16 116/63 97 01/05/17 20:00 99.7 69 18 108/59 98 01/05/17 18:34 18 01/05/17 16:28 98.2 85 19 101/64 95 Intake & Output 01/06/17 01/06/17 06:59 18:59 Intake Total 833 ml Output Total 150 ml Balance 833 ml -150 ml Intake Oral 480 ml IV Total 353 ml Output Urine Total 150 ml # Voids 2 . Physical Exam CONSTITUTIONAL/GENERAL: This is an adequately nourished patient, in no apparent distress. TUBES/LINES/DRAINS: LACF PIV SKIN: Skin is jaundiced with some scattered ecchymotic areas on the upper extremities. Multiple tattoos HEAD: Atraumatic. Normocephalic. Suture over right eyebrow after having small lesion opened which would not stop bleeding, no erythema. EYES: Pupils equal and round and reactive. Extraocular motions intact. Scleral icterus. No injection or drainage. Fundi not examined. CARDIOVASCULAR: Regular rate and rhythm without gallops, or rubs. 2/6 systolic ejection murmur heard best at the left sternal border. No JVD. Peripheral pulses symmetric. RESPIRATORY/CHEST: Symmetric, unlabored respirations. Clear to auscultation. Breath sounds equal bilaterally. No wheezes, rales, or rhonchi. GASTROINTESTINAL: Abdomen soft, tender to palpation. GENITOURINARY: Without palpable bladder distension. Testicular edema. MUSCULOSKELETAL: Extremities without clubbing or cyanosis, 3+ pitting dependent edema. Complains of leg tenderness due to edema. NEUROLOGICAL: Awake and alert. Motor and sensory grossly within normal limits. Follows commands. Moves all extremities. PSYCHIATRIC: Appears generally depressed, no anxiety, no apparent hallucinations or other psychotic thought process. . Diagnostic Tests Laboratory Laboratory Tests Test 01/04/17 01/04/17 01/04/17 01/04/17 02:52 02:55 05:30 10:25 White Blood Count 21.9 TH/MM3 (4.0-11.0) Red Blood Count 2.42 MIL/MM3 (4.50-5.90) Hemoglobin 9.8 GM/DL (13.0-17.0) Hematocrit 29.2 % (39.0-51.0) Mean Corpuscular Volume 120.7 FL (80.0-100.0) Mean Corpuscular Hemoglobin 40.6 PG (27.0-34.0) Mean Corpuscular Hemoglobin 33.6 % Concent (32.0-36.0) Red Cell Distribution Width 24.7 % (11.6-17.2) Platelet Count 84 TH/MM3 (150-450) Mean Platelet Volume 7.8 FL (7.0-11.0) Neutrophils (%) (Auto) 78.4 % (16.0-70.0) Lymphocytes (%) (Auto) 8.8 % (9.0-44.0) Monocytes (%) (Auto) 9.6 % (0.0-8.0) Eosinophils (%) (Auto) 0.7 % (0.0-4.0) Basophils (%) (Auto) 2.5 % (0.0-2.0) Neutrophils # (Auto) 17.2 TH/MM3 (1.8-7.7) Lymphocytes # (Auto) 1.9 TH/MM3 (1.0-4.8) Monocytes # (Auto) 2.1 TH/MM3 (0-0.9) Eosinophils # (Auto) 0.2 TH/MM3 (0-0.4) Basophils # (Auto) 0.5 TH/MM3 (0-0.2) CBC Comment AUTO DIFF Differential Total Cells 100 Counted Neutrophils % (Manual) 90 % (16-70) Lymphocytes % 3 % (9-44) Monocytes % 6 % (0-8) Eosinophils % 1 % (0-4) Neutrophils # (Manual) 19.7 TH/MM3 (1.8-7.7) Differential Comment FINAL DIFF MANUAL Hypersegmented Polys 1+ (NORMAL) Platelet Estimate LOW (NORMAL) Platelet Morphology Comment NORMAL (NORMAL) Target Cells 1+ (NORMAL) Ovalocytes 1+ (NORMAL) Prothrombin Time 23.9 SEC (9.8-11.6) Prothromb Time International 2.1 RATIO Ratio Activated Partial 30.7 SEC Thromboplast Time (24.3-30.1) Sodium Level 134 MEQ/L (136-145) Potassium Level 4.0 MEQ/L (3.5-5.1) Chloride Level 99 MEQ/L (98-107) Carbon Dioxide Level 27.3 MEQ/L (21.0-32.0) Anion Gap 8 MEQ/L (5-15) Blood Urea Nitrogen 16 MG/DL (7-18) Creatinine 0.82 MG/DL (0.60-1.30) Estimat Glomerular Filtration 109 ML/MIN Rate (>89) Random Glucose 99 MG/DL (74-106) Calcium Level 8.3 MG/DL (8.5-10.1) Magnesium Level 1.9 MG/DL (1.5-2.5) Total Bilirubin 12.3 MG/DL (0.2-1.0) Aspartate Amino Transf 103 U/L (15-37) (AST/SGOT) Alanine Aminotransferase 59 U/L (12-78) (ALT/SGPT) Alkaline Phosphatase 141 U/L (45-117) Ammonia 75 MCMOL/L (11-32) Total Protein 6.9 GM/DL (6.4-8.2) Albumin 2.3 GM/DL (3.4-5.0) Lipase 274 U/L (73-393) Lactic Acid Level 1.9 mmol/L (0.4-2.0) Urine Collection Type CLEAN CATCH Urine Color YELLOW (YELLW/STRAW) Urine Turbidity CLEAR (CLEAR) Urine pH 5.5 (5.0-8.5) Urine Specific [place] 1.035 (1.002-1.035) Urine Protein TRACE mg/dL (NEG-TRACE) Urine Glucose (UA) NEG mg/dL (NEG) Urine Ketones NEG mg/dL (NEG) Urine Occult Blood SMALL (NEG) Urine Nitrite POS (NEG) Urine Bilirubin MOD (NEG) Urine Leukocyte Esterase NEG (NEG) Urine RBC 4-9 /hpf (0-3) Urine WBC 0-2 /hpf (0-5) Urine Squamous Epithelial 0-5 /hpf (0-5) Cells Microscopic Urinalysis Comment CULT NOT INDICATED Urine Collection Time 10:25 Test 01/04/17 01/05/17 01/06/17 01/06/17 15:55 05:55 06:07 13:05 Blood Bank Comment White Blood Count 28.8 TH/MM3 17.2 TH/MM3 (4.0-11.0) (4.0-11.0) Red Blood Count 2.08 MIL/MM3 1.88 MIL/MM3 (4.50-5.90) (4.50-5.90) Hemoglobin 8.5 GM/DL 7.6 GM/DL (13.0-17.0) (13.0-17.0) Hematocrit 25.2 % 22.6 % (39.0-51.0) (39.0-51.0) Mean Corpuscular Volume 121.2 FL 120.7 FL (80.0-100.0) (80.0-100.0) Mean Corpuscular Hemoglobin 40.9 PG 40.3 PG (27.0-34.0) (27.0-34.0) Mean Corpuscular Hemoglobin 33.8 % 33.3 % Concent (32.0-36.0) (32.0-36.0) Red Cell Distribution Width 23.9 % 22.8 % (11.6-17.2) (11.6-17.2) Platelet Count 70 TH/MM3 50 TH/MM3 (150-450) (150-450) Mean Platelet Volume 7.6 FL 8.4 FL (7.0-11.0) (7.0-11.0) Neutrophils (%) (Auto) 79.4 % 77.2 % (16.0-70.0) (16.0-70.0) Lymphocytes (%) (Auto) 9.9 % 8.4 % (9.0-44.0) (9.0-44.0) Monocytes (%) (Auto) 6.4 % (0.0-8.0) 6.2 % (0.0-8.0) Eosinophils (%) (Auto) 2.6 % (0.0-4.0) 5.1 % (0.0-4.0) Basophils (%) (Auto) 1.7 % (0.0-2.0) 3.1 % (0.0-2.0) Neutrophils # (Auto) 23.0 TH/MM3 13.3 TH/MM3 (1.8-7.7) (1.8-7.7) Lymphocytes # (Auto) 2.8 TH/MM3 1.4 TH/MM3 (1.0-4.8) (1.0-4.8) Monocytes # (Auto) 1.8 TH/MM3 1.1 TH/MM3 (0-0.9) (0-0.9) Eosinophils # (Auto) 0.7 TH/MM3 0.9 TH/MM3 (0-0.4) (0-0.4) Basophils # (Auto) 0.5 TH/MM3 0.5 TH/MM3 (0-0.2) (0-0.2) CBC Comment AUTO DIFF AUTO DIFF Differential Total Cells 100 Counted Neutrophils % (Manual) 85 % (16-70) Lymphocytes % 10 % (9-44) Monocytes % 3 % (0-8) Eosinophils % 1 % (0-4) Basophils % 1 % (0-2) Neutrophils # (Manual) 24.5 TH/MM3 (1.8-7.7) Nucleated Red Blood Cells 1 /100 WBC (0-0) Differential Comment FINAL DIFF AUTO DIFF MANUAL CONFIRMED Sodium Level 134 MEQ/L 135 MEQ/L (136-145) (136-145) Potassium Level 3.7 MEQ/L 3.3 MEQ/L (3.5-5.1) (3.5-5.1) Chloride Level 99 MEQ/L 101 MEQ/L (98-107) (98-107) Carbon Dioxide Level 29.4 MEQ/L 27.7 MEQ/L (21.0-32.0) (21.0-32.0) Anion Gap 6 MEQ/L (5-15) 6 MEQ/L (5-15) Blood Urea Nitrogen 20 MG/DL (7-18) 14 MG/DL (7-18) Creatinine 0.81 MG/DL 0.85 MG/DL (0.60-1.30) (0.60-1.30) Estimat Glomerular Filtration 110 ML/MIN 104 ML/MIN Rate (>89) (>89) Random Glucose 110 MG/DL 120 MG/DL (74-106) (74-106) Calcium Level 8.1 MG/DL 7.8 MG/DL (8.5-10.1) (8.5-10.1) Total Bilirubin 12.6 MG/DL 10.9 MG/DL (0.2-1.0) (0.2-1.0) Aspartate Amino Transf 84 U/L (15-37) 73 U/L (15-37) (AST/SGOT) Alanine Aminotransferase 51 U/L (12-78) 43 U/L (12-78) (ALT/SGPT) Alkaline Phosphatase 115 U/L 97 U/L (45-117) (45-117) Total Protein 6.1 GM/DL 5.5 GM/DL (6.4-8.2) (6.4-8.2) Albumin 2.1 GM/DL 2.2 GM/DL (3.4-5.0) (3.4-5.0) Platelet Estimate LOW (NORMAL) Platelet Morphology Comment NORMAL (NORMAL) Prothrombin Time 20.6 SEC (9.8-11.6) Prothromb Time International 1.8 RATIO Ratio Ammonia 12 MCMOL/L (11-32) Result Diagram: 01/06/17 0607 01/06/17 6559 Microbiology Microbiology Date/Time Procedure Status Source Growth 01/04/17 05:30 Aerobic Blood Culture - Preliminary Resulted Blood Peripheral Viridans Streptococcus Grp 01/04/17 05:30 Anaerobic Blood Culture - Preliminary Resulted Blood Peripheral NO GROWTH IN 2 DAYS 01/04/17 05:35 Aerobic Blood Culture - Preliminary Resulted Blood Peripheral Viridans Streptococcus Grp 01/04/17 05:35 Anaerobic Blood Culture - Preliminary Resulted Blood Peripheral NO GROWTH IN 2 DAYS 01/05/17 09:10 Gram Stain - Final Resulted Fluid Peritoneal Fluid 01/05/17 09:10 Body Fluid Culture - Preliminary Resulted Fluid Peritoneal Fluid NO GROWTH IN 24 HOURS. Procedures 01/05/17-paracentesis Assessment and Plan Disease Oriented Problem List: (1) Acute low back pain with sciatica (2) Jaundice (3) Coagulopathy (4) Cirrhosis of liver with ascites Symptom Scale: (1) Nausea 0-10 Scale: Unable to quantify (2) Abdominal pain 0-10 Scale: Unable to quantify (3) Edema 0-10 Scale: Unable to quantify (4) Dizziness 0-10 Scale: Unable to quantify Pertinent Non-Medical Issues Psychosocial:He was born in [place] near [place] and there most of his life. He moved to [place] about 18 months ago. He graduated high school in [place] and worked in [employer] for the next 15 years. After finding his mother from an opiate overdose, he fell and prescription drug abuse himself for several years and then stopped. He has been clean of prescription drug abuse for many years. Spiritual: He has no spiritual affiliations. Legal: He is currently capacitated to make decisions on his own and states he wishes aggressive resuscitation unless that becomes futile. His would, by [place] law, be his healthcare proxy and he is happy with that decision. Ethical issues impacting care: None noted Important Contacts - Dee Nixon Prognosis His prognosis is poor. 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 He did quit drinking 4 months ago but has had no significant stabilization of his disease process. Plan is to follow-up with [facility] for evaluation and possible liver transplant if qualified. Without that transplant his disease is likely terminal. Code Status: Full Code Plan PLAN: Legal decision maker: Currently capacitated to make his own decisions. His would be decision-maker by proxy in case of incapacitation. He is aware and agreeable. Goals: Goals are currently aggressive. He wishes to live long enough to raise his children. CODE STATUS: FULL CODE SYMPTOMS: * Nausea - had intractable nausea and vomiting on admission, required several doses of Zofran but is now under control. Is likely at risk for continued nausea. Zofran available as needed, last dose 01/04/17. Ammonia level now stabilized at 12. * Abdominal pain - continues to have abdominal pain and tenderness despite paracentesis with 5.3 L removed. Possible inflammatory response. Has received 3 doses of hydromorphone 0.5 mg so far today and 6 doses of 0.5 mg yesterday. Pain remains at 8 out of 10. He may need a higher dose as he is using maximum of uncontrolled discomfort at this time. * Edema - has significant 3+ edema to both legs extending up to the testicles. He is currently receiving Lasix 20 mg daily and spironolactone 50 mg daily. Would recommend Lasix be converted to IV temporarily until edema is better controlled. In summary seen by GI today who has followed patient in the past. Without transplant patient is felt to have a very poor prognosis per that consultation. He has now developed viridans streptococcus positive blood cultures and is pending infectious disease consult for antibiotic management. Palliative care will continue to follow for support, goals of care and symptom management. Palliative care will continue to follow the patient during hospital course as condition evolves, to assist patient/decision-maker with understanding of their medical conditions, weighing benefits/burdens of treatment options, for clarification of goals of treatment. Additionally will assist with any symptoms of palliative concern Attestation To help prompt me to consider important information that might be impacting today's encounter and assessment, information from prior notes written by myself or my colleagues may have been "brought forward" into today's note. My signature on this note, however, is an attestation that I personally performed the exam, history, and/or decision-making noted today, and, unless otherwise indicated, the interactions with patient, family, and staff as well as the review of records all occurred today. I also attest that the listed assessment and stated plan reflect my best clinical judgment today based on the combination of historical information, prior notes, and today's exam/ interactions. When time spent is documented, it refers only to time spent today by the signer, or if indicated, combined time spent today by collaborating physician/nurse practitioner. Chrystal Lopez Jan 06, 2017 14:21
[2017-01-06 14:33] LABS: VANCOMYCIN TROUGH 20.3 MCG/ML (5.0-10.0)
--- NOTE | 2017-01-06 14:39 | HHI.PR ---
Subjective Remarks Follow-up end-stage liver disease/cirrhosis and now bacteremia 01/06/17-patient seen and examined, Tmax 100 at midnight however currently afebrile. Denies any abdominal pain and tolerated by mouth without any competition nausea and vomiting. Reported improvement of lower extremity edema. Objective Vitals Vital Signs Date Time Temp Pulse Resp B/P Pulse Ox O2 Delivery O2 Flow Rate FiO2 01/06/17 12:00 99.3 102 20 121/66 96 01/06/17 08:15 98.7 90 19 122/73 93 01/06/17 00:00 100.0 93 16 116/63 97 01/05/17 20:00 99.7 69 18 108/59 98 01/05/17 18:34 18 01/05/17 16:28 98.2 85 19 101/64 95 I/O 01/05/17 01/05/17 01/05/17 01/06/17 01/06/17 01/06/17 06:59 14:59 22:59 06:59 14:59 22:59 Intake Total 1166 ml 1293 ml 480 ml Output Total 200 ml 150 ml Balance 966 ml 1293 ml 480 ml -150 ml Intake Oral 960 ml 940 ml 480 ml IV Total 206 ml 353 ml Output Urine Total 200 ml 150 ml # Voids 1 4 2 # Bowel Movements 1 1 Result Diagram: 01/06/17 0607 01/06/17 1305 Imaging Last Impressions Cyst Biopsy Asp-Paracentesis US 01/05/17 0000 Signed Impressions: Service Date/Time: December 08:30 - CONCLUSION: Uncomplicated ultrasound guided paracentesis. Franki Aguirre Jr., MD Abdomen/Pelvis CT 01/04/17 0527 Signed Impressions: Service Date/Time: Wednesday, January 04, 2017 05:59 - CONCLUSION: 1. Cirrhosis and portal hypertension with increase in ascites since the previous study. 2. A sludgeball is suspected within the gallbladder lumen. 3. Diffuse small bowel fold thickening noted and likely related to the ascites. 4. Interval development of diffuse colonic wall thickening most evident in the transverse colon. This can be seen with colitis or may be related to the ascites. There Abdirashid Tovar MD Objective Remarks GENERAL: NAD SKIN: Warm and dry. HEAD: Normocephalic. EYES: No scleral icterus. No injection or drainage. NECK: Supple, trachea midline. No JVD or lymphadenopathy. CARDIOVASCULAR: Regular rate and rhythm without murmurs, gallops, or rubs. RESPIRATORY: Breath sounds equal bilaterally. No accessory muscle use. GASTROINTESTINAL: Abdomen soft, non-tender, +distended. MUSCULOSKELETAL: No cyanosis; +1 edema. BACK: Nontender without obvious deformity. No CVA tenderness. A/P Problem List: (1) Cirrhosis of liver with ascites ICD Code: K74.60 Status: Acute (2) Bacteremia ICD Code: R78.81 Status: Acute (3) Leukocytosis ICD Code: D72.829 Status: Acute (4) Coagulopathy ICD Code: D68.9 Status: Acute Assessment and Plan 31-year-old man with Bacteremia 2/2 SBP? Repeat blood culture Currently on Rocephin and vancomycin, however with discontinue vancomycin. Consultation to infectious disease specialist pending End-stage liver disease Cirrhosis of liver with ascites Status post paracentesis 01/05/17 Currently on Aldactone, lactulose twice a day and change Lasix to IV milligrams daily Add Rifaximin 550 twice daily Appreciate input from palliative care medicine MELD score Coagulopathy Secondary to end-stage liver disease Continue with treatment as in above Appreciate input from gastroenterology Macrocytic anemia of chronic disease Monitor H&H and transfuse for hemoglobin less than 7 DVT prophylaxis: Chemical anti-prophylactic is contraindicated, bilateral SCDs Dany Julien MD Jan 06, 2017 14:39
[2017-01-06 16:27] VITALS: BP 105/63; PULSE 85; RESP 19; TEMP 98.6; O2SAT 94
--- NOTE | 2017-01-06 18:59 | PD.ID.CON ---
History of Present Illness Service ID Consult Requested By Dr Joyce Reason for Consult bacteremia Primary Care Physician No Primary Care Physician Diagnoses: History of Present Illness 31 yo male with ETOH liver cirrosis and ascites, abstinent for 4 months pt is schedled for 1st appointment to [place] to be evaluated for liver transplant presented with 2 dauys of fever, chills and abdominal apina, increasing abdominal girth His WBC was quite elevated @ 28 K He is growing viridans strep in 2/2 blood cultures He is s/p pracentheis, ascitic fluid culture is negative @ 24 , no cell counts / diff are aveilbale Pt feels much better and his abd pain improved WBC is going down Review of Systems Except as stated in HPI: all other systems reviewed are Neg Past Family Social History Allergies: Coded Allergies: No Known Allergies (Unverified , 01/04/17) Past Medical History Liver failure Alcoholism Hemochromatosis Past Surgical History JAW surgery after trauma Active Ordered Medications Medications where reviewed in EMR Antibiotics Include: vancomycin CFTX Family History Hypertension and alcohol dependency Social History Smokes half a pack a day tobacco, , unemployed quit ETOH 4 mos ago Physical Exam Vital Signs Vital Signs Date Time Temp Pulse Resp B/P Pulse Ox O2 Delivery O2 Flow Rate FiO2 01/06/17 16:27 98.6 85 19 105/63 94 01/06/17 12:00 99.3 102 20 121/66 96 01/06/17 08:15 98.7 90 19 122/73 93 01/06/17 00:00 100.0 93 16 116/63 97 01/05/17 20:00 99.7 69 18 108/59 98 Physical Exam CONSTITUTIONAL/GENERAL: This is an adequately nourished patient, in no apparent distress. TUBES/LINES/DRAINS: SKIN: + mild jaundice, rashes, or lesions. Ecchymoses on upper extremities. No wounds seen anteriorly. Skin temperature appropriate. Not diaphoretic. HEAD: Atraumatic. Normocephalic. EYES: Pupils equal and round and reactive. Extraocular motions intact. + moerate scleral icterus. No injection or drainage. Fundi not examined. ENT: Hearing grossly normal. Nose without bleeding or purulent drainage. oral mucosae without visible erythema, exudates, masses, or lesions. NECK: Trachea midline. Supple, nontender. No palpable thyroid enlargement or nodularity. CARDIOVASCULAR: Regular rate and rhythm without murmurs, gallops, or rubs. No JVD. Peripheral pulses symmetric. RESPIRATORY/CHEST: Symmetric, unlabored respirations. Clear to auscultation. Breath sounds equal bilaterally. No wheezes, rales, or rhonchi. GASTROINTESTINAL: Abdomen soft, non-tender, + moderately distended. No hepato- splenomegaly, or palpable masses. No guarding. Bowel sounds present. GENITOURINARY: Without palpable bladder distension. MUSCULOSKELETAL: Extremities without clubbing, cyanosis, 3+ diffuse soft pitting edema. No joint tenderness or effusion noted. No calf tenderness. No mottling or clubbing. LYMPHATICS: No palpable cervical or supraclavicular adenopathy. NEUROLOGICAL: Awake and alert. Motor and sensory grossly within normal limits. Follows commands. Clear speech. Moves all extremities. PSYCHIATRIC: No obvious anxiety/depression. no apparent hallucinations or other psychotic thought process. Laboratory Laboratory Tests Test 01/06/17 01/06/17 06:07 13:05 White Blood Count 17.2 Red Blood Count 1.88 Hemoglobin 7.6 Hematocrit 22.6 Mean Corpuscular Volume 120.7 Mean Corpuscular Hemoglobin 40.3 Mean Corpuscular Hemoglobin 33.3 Concent Red Cell Distribution Width 22.8 Platelet Count 50 Mean Platelet Volume 8.4 Neutrophils (%) (Auto) 77.2 Lymphocytes (%) (Auto) 8.4 Monocytes (%) (Auto) 6.2 Eosinophils (%) (Auto) 5.1 Basophils (%) (Auto) 3.1 Neutrophils # (Auto) 13.3 Lymphocytes # (Auto) 1.4 Monocytes # (Auto) 1.1 Eosinophils # (Auto) 0.9 Basophils # (Auto) 0.5 CBC Comment AUTO DIFF Differential Comment AUTO DIFF CONFIRMED Platelet Estimate LOW Platelet Morphology Comment NORMAL Prothrombin Time 20.6 Prothromb Time International 1.8 Ratio Ammonia 12 Sodium Level 135 Potassium Level 3.3 Chloride Level 101 Carbon Dioxide Level 27.7 Anion Gap 6 Blood Urea Nitrogen 14 Creatinine 0.85 Estimat Glomerular Filtration 104 Rate Random Glucose 120 Calcium Level 7.8 Total Bilirubin 10.9 Aspartate Amino Transf 73 (AST/SGOT) Alanine Aminotransferase 43 (ALT/SGPT) Alkaline Phosphatase 97 Total Protein 5.5 Albumin 2.2 Vancomycin Level Trough 20.3 Date/Time Procedure Status Source Growth 01/06/17 14:10 Aerobic Blood Culture Received Blood Peripheral Pending 01/06/17 14:10 Anaerobic Blood Culture Received Blood Peripheral Pending 01/05/17 09:10 Gram Stain - Final Resulted Fluid Peritoneal Fluid 01/05/17 09:10 Body Fluid Culture - Preliminary Resulted Fluid Peritoneal Fluid NO GROWTH IN 24 HOURS. 01/04/17 05:35 Aerobic Blood Culture - Preliminary Resulted Blood Peripheral Viridans Streptococcus Grp 01/04/17 05:35 Anaerobic Blood Culture - Preliminary Resulted Blood Peripheral NO GROWTH IN 2 DAYS Result Diagram: 01/06/17 0607 01/06/17 1305 Imaging Last Impressions Cyst Biopsy Asp-Paracentesis US 01/05/17 0000 Signed Impressions: Service Date/Time: December 08:30 - CONCLUSION: Uncomplicated ultrasound guided paracentesis. Franki Aguirre Jr., MD Abdomen/Pelvis CT 01/04/17 0527 Signed Impressions: Service Date/Time: Wednesday, January 04, 2017 05:59 - CONCLUSION: 1. Cirrhosis and portal hypertension with increase in ascites since the previous study. 2. A sludgeball is suspected within the gallbladder lumen. 3. Diffuse small bowel fold thickening noted and likely related to the ascites. 4. Interval development of diffuse colonic wall thickening most evident in the transverse colon. This can be seen with colitis or may be related to the ascites. There Abdirashid Tovar MD Assessment and Plan Assessment and Plan ETOH induced liver cirrosis, awaitin eval'n for transplant - abstinent Viridans strep sepsis, likely from SBP - clx P Rec's: cont CFTX -cont vanco for now - fu repeat blood clx - chk 2 D echo Chyna Singh MD Jan 06, 2017 18:59
[2017-01-06 20:21] VITALS: BP 109/69; PULSE 79; RESP 16; TEMP 98.8; O2SAT 94
[2017-01-06] MEDS: RIFAXIMIN 550 MG TAB PO SCH (21:13)
[2017-01-07 00:41] VITALS: BP 107/59; PULSE 85; RESP 16; TEMP 98.9; O2SAT 98
[2017-01-07] MEDS: HYDROmorphone HCL PF 1 MG/ML VIAL IV PUSH PRN ×5 (01:17→20:04)
[2017-01-07] MEDS: VANCOMYCIN INJ 1,500 MG in SODIUM CHLORID 0.9% 500 ML INJ 500 ML IV SCH ×2 (01:30→15:26)
[2017-01-07] MEDS: cefTRIAXone INJ 1,000 MG in SODIUM CHLORIDE 0.9% INJ 100 ML IV SCH ×2 (06:24→18:29)
[2017-01-07 07:43] LABS: BASOPHIL # 0.4 TH/MM3 (0-0.2); BASOPHIL % 2.5 % (0.0-2.0); EOSINOPHIL # 0.6 TH/MM3 (0-0.4); EOSINOPHIL % 3.8 % (0.0-4.0); HEMATOCRIT 23.1 % (39.0-51.0); LYMPH % 16.6 % (9.0-44.0); LYMPHOCYTE # 2.6 TH/MM3 (1.0-4.8); MEAN CELL VOLUME 120.7 FL (80.0-100.0); MEAN CORPUSCULAR HEMOGLOBIN 41.3 PG (27.0-34.0); MEAN CORPUSCULAR HGB CONC 34.2 % (32.0-36.0); MONO % 6.6 % (0.0-8.0); NEUT % 70.5 % (16.0-70.0); PLATELET COUNT 72 TH/MM3 (150-450); RED BLOOD COUNT 1.91 MIL/MM3 (4.50-5.90); RED CELL DISTRIBUTION WIDTH 22.3 % (11.6-17.2); WHITE BLOOD COUNT 15.6 TH/MM3 (4.0-11.0)
[2017-01-07 07:53] LABS: HEMO FLAGS AUTO DIFF
[2017-01-07 08:00] VITALS: BP 117/75; PULSE 99; RESP 16; TEMP 98.8; O2SAT 96
[2017-01-07 08:01] LABS: CHLORIDE 102 MEQ/L (98-107); POTASSIUM 3.3 MEQ/L (3.5-5.1); SODIUM (NA) 136 MEQ/L (136-145)
[2017-01-07 08:05] LABS: ANION GAP 6 MEQ/L (5-15); BICARBONATE 28.4 MEQ/L (21.0-32.0)
[2017-01-07 08:06] LABS: BLOOD UREA NITROGEN 13 MG/DL (7-18)
[2017-01-07 08:09] LABS: ALT (GPT) 45 U/L (12-78); AST (GOT) 84 U/L (15-37); GLOMERULAR FILTRATION RATE 114 ML/MIN (>89)
[2017-01-07 08:10] LABS: TOTAL BILIRUBIN ADULT 10.8 MG/DL (0.2-1.0)
[2017-01-07 08:12] LABS: ALKALINE PHOSPHATASE 116 U/L (45-117)
[2017-01-07 08:23] LABS: BURR CELLS 1+ (NORMAL)
[2017-01-07 08:24] LABS: KERATOCYTES OCC (NORMAL); PLATELET ESTIMATE SMEAR LOW (NORMAL); PLATELET MORPHOLOGY NORMAL (NORMAL); ROULEAUX PRESENT (NORMAL); SCAN/DIFF AUTO DIFF CONFIRMED
[2017-01-07] MEDS: FUROSEMIDE 20 MG/2 ML VIAL IV PUSH SCH (08:49)
[2017-01-07] MEDS: SODIUM CHLORIDE 0.9% FLUSH 10 ML FLUSH IV FLUSH SCH ×2 (08:49→20:02)
[2017-01-07] MEDS: THIAMINE HCL 100 MG TAB PO SCH (08:50)
[2017-01-07] MEDS: FOLIC ACID 1 MG TAB PO SCH (08:50)
[2017-01-07] MEDS: NADOLOL 20 MG TAB PO SCH (08:50)
[2017-01-07] MEDS: SPIRONOLACTONE 50 MG TAB PO SCH (08:50)
[2017-01-07] MEDS: RIFAXIMIN 550 MG TAB PO SCH ×2 (08:51→20:04)
[2017-01-07] MEDS: PANTOPRAZOLE SOD 40 MG DELAYED RELEASE TAB PO SCH (08:51)
[2017-01-07] MEDS: LACTULOSE SYRUP 20 GM/30 ML CUP PO SCH (08:51)
[2017-01-07 12:00] VITALS: BP 118/70; PULSE 83; RESP 18; TEMP 97.4; O2SAT 96
--- NOTE | 2017-01-07 12:07 | HHI.PR ---
Subjective Remarks Follow-up end-stage liver disease/cirrhosis and now bacteremia 01/06/17-patient seen and examined, Tmax 100 at midnight however currently afebrile. Denies any abdominal pain and tolerated by mouth without any competition nausea and vomiting. Reported improvement of lower extremity edema. 01/07/17-patient seen and examined, currently afebrile. Patient states he was up and ambulated the hallway and denies any shortness of breath or chest pain. Reports feeling much better compared to yesterday. By the bedside Objective Vitals Vital Signs Date Time Temp Pulse Resp B/P Pulse Ox O2 Delivery O2 Flow Rate FiO2 01/07/17 08:00 98.8 99 16 117/75 96 01/07/17 00:41 98.9 85 16 107/59 98 01/06/17 20:21 98.8 79 16 109/69 94 01/06/17 16:27 98.6 85 19 105/63 94 I/O 01/06/17 01/06/17 01/06/17 01/07/17 01/07/17 01/07/17 07:00 15:00 23:00 07:00 15:00 23:00 Intake Total 480 ml 1000 ml 500 ml Output Total 150 ml 300 ml Balance 480 ml 850 ml -300 ml 500 ml Intake Oral 480 ml IV Total 1000 ml 500 ml Output Urine Total 150 ml 300 ml # Voids 2 2 1 Result Diagram: 01/07/1725 01/07/17724 Imaging Last Impressions Cyst Biopsy Asp-Paracentesis US 01/05/17 0000 Signed Impressions: Service Date/Time: December 08:30 - CONCLUSION: Uncomplicated ultrasound guided paracentesis. Franki Aguirre Jr., MD Abdomen/Pelvis CT 01/04/17 0527 Signed Impressions: Service Date/Time: Wednesday, January 04, 2017 05:59 - CONCLUSION: 1. Cirrhosis and portal hypertension with increase in ascites since the previous study. 2. A sludgeball is suspected within the gallbladder lumen. 3. Diffuse small bowel fold thickening noted and likely related to the ascites. 4. Interval development of diffuse colonic wall thickening most evident in the transverse colon. This can be seen with colitis or may be related to the ascites. There Abdirashid Tovar MD Objective Remarks GENERAL: NAD SKIN: Warm and dry. HEAD: Normocephalic. EYES: No scleral icterus. No injection or drainage. NECK: Supple, trachea midline. No JVD or lymphadenopathy. CARDIOVASCULAR: Regular rate and rhythm without murmurs, gallops, or rubs. RESPIRATORY: Breath sounds equal bilaterally. No accessory muscle use. GASTROINTESTINAL: Abdomen soft, non-tender, +distended. MUSCULOSKELETAL: No cyanosis; +2 edema LLE BACK: Nontender without obvious deformity. No CVA tenderness. A/P Problem List: (1) Cirrhosis of liver with ascites ICD Code: K74.60 Status: Acute (2) Bacteremia ICD Code: R78.81 Status: Acute (3) Leukocytosis ICD Code: D72.829 Status: Acute (4) Coagulopathy ICD Code: D68.9 Status: Acute Assessment and Plan 31-year-old man with Strep Viridian Bacteremia 2/2 SBP Repeat blood culture NTD Currently on Rocephin and vancomycin 2-D echo pending Appreciate input from infectious disease specialist End-stage liver disease Cirrhosis of liver with ascites Status post paracentesis 01/05/17 Currently on Aldactone, lactulose twice a day and Lasix IV milligrams daily Continue Rifaximin 550 twice daily Appreciate input from palliative care medicine MELD score Coagulopathy Secondary to end-stage liver disease Continue with treatment as in above Appreciate input from gastroenterology Macrocytic anemia of chronic disease Monitor H&H and transfuse for hemoglobin less than 7 DVT prophylaxis: Chemical anti-prophylactic is contraindicated, bilateral SCDs Dany Julien MD Jan 07, 2017 12:07
[2017-01-07 16:00] VITALS: BP 121/69; PULSE 79; RESP 17; TEMP 98.3; O2SAT 95
--- NOTE | 2017-01-07 17:50 | ECHRPT ---
Indication: Vegetations CONCLUSIONS Wall thickness is measured at the upper limits of normal. Normal left ventricular size. Normal atrial septal thickness. A possible atrial level shunt is demonstrated by color flow Doppler interrogation, clinical correlat ion recommended(possible PFO). [id number] mitral valve regurgitation. There is mild tricuspid valve regurgitation. The estimated pulmonary arterial pressure is 42 mmHg. The pulmonary valve is not well visualized. A left sided pleural effusion is present. BP: 118 / 70 HR: 83 Rhythm: Sinus MEASUREMENTS (Male / Female) Normal Values Technical Quality:Fair 2D ECHO LV Diastolic Diameter PLAX 5.9 cm 4.2 - 5.9 / 3.9 - 5.3 cm LV Systolic Diameter PLAX 4.7 cm IVS Diastolic Thickness 1.3 cm 0.6 - 1.0 / 0.6 - 0.9 cm LVPW Diastolic Thickness 1.3 cm 0.6 - 1.0 / 0.6 - 0.9 cm LV Relative Wall Thickness 0.4 LVOT Diameter 2.7 cm M-MODE Aortic Root Diameter MM 4.1 cm LA Systolic Diameter MM 3.1 cm LA Ao Ratio MM 0.8 AV Cusp Separation MM 3.0 cm DOPPLER AV Peak Velocity 145.0 cm/s AV Peak Gradient 8.4 mmHg LVOT Peak Velocity 109.0 cm/s LVOT Peak Gradient 4.8 mmHg AV Area Cont Eq pk 4.3 cm MR Peak Velocity 310.0 cm/s MR Peak Gradient 38.4 mmHg TR Peak Velocity 281.0 cm/s TR Peak Gradient 31.6 mmHg PV Peak Velocity 137.0 cm/s PV Peak Gradient 7.5 mmHg FINDINGS LEFT VENTRICLE The left ventricular systolic function is normal with an estimated ejection fraction in the range of 55-60%. Wall thickness is measured at the upper limits of normal. Normal left ventricular size. RIGHT VENTRICLE Normal right ventricular size and systolic function. LEFT ATRIUM The left atrial size is normal. RIGHT ATRIUM The right atrial size is normal. ATRIAL SEPTUM Normal atrial septal thickness. A possible atrial level shunt is demonstrated by color flow Doppler interrogation, clinical correlat ion recommended(possible PFO). AORTA The aortic root and proximal ascending aorta are normal in size on limited imaging. MITRAL VALVE Structurally normal mitral valve. [id number] mitral valve regurgitation. AORTIC VALVE Trileaflet aortic valve. No aortic valve stenosis or regurgitation. TRICUSPID VALVE Structurally normal tricuspid valve. There is mild tricuspid valve regurgitation. The estimated pulmonary arterial pressure is 42 mmHg. PULMONARY VALVE The pulmonary valve is not well visualized. VESSELS The inferior vena cava is normal in size. PERICARDIUM A left sided pleural effusion is present. Jose E Vargas MD (Electronically Signed) Final Date:07 January 2017 17:49
[2017-01-07] MEDS: LACTULOSE 20 GM/30 ML PO SCH (20:02)
[2017-01-07 20:28] VITALS: BP_SYST 135; BP_SYST 98; BP_DIAS 63; BP_DIAS 77; PULSE 73; PULSE 82; RESP 14; RESP 16; TEMP 97.4; TEMP 98.5; O2SAT 97; O2SAT 98
--- NOTE | 2017-01-07 20:42 | HHI.GIFU ---
Subjective Remarks feels well, no abdominal pain, comfortable post paracentesis, no complains Objective Vitals I&O Vital Signs Date Time Temp Pulse Resp B/P Pulse Ox O2 Delivery O2 Flow Rate FiO2 01/07/17 16:00 98.3 79 17 121/69 95 01/07/17 12:00 97.4 83 18 118/70 96 01/07/17 08:00 98.8 99 16 117/75 96 01/07/17 00:41 98.9 85 16 107/59 98 I/O 01/06/17 01/06/17 01/06/17 01/07/17 01/07/17 01/07/17 07:00 15:00 23:00 07:00 15:00 23:00 Intake Total 480 ml 1000 ml 500 ml 960 ml Output Total 150 ml 300 ml Balance 480 ml 850 ml -300 ml 500 ml 960 ml Intake Oral 480 ml 960 ml IV Total 1000 ml 500 ml Output Urine Total 150 ml 300 ml # Voids 2 2 1 3 # Bowel Movements 1 Laboratory Laboratory Tests Test 01/07/17 07:25 White Blood Count 15.6 Red Blood Count 1.91 Hemoglobin 7.9 Hematocrit 23.1 Mean Corpuscular Volume 120.7 Mean Corpuscular Hemoglobin 41.3 Mean Corpuscular Hemoglobin 34.2 Concent Red Cell Distribution Width 22.3 Platelet Count 72 Mean Platelet Volume 7.6 Neutrophils (%) (Auto) 70.5 Lymphocytes (%) (Auto) 16.6 Monocytes (%) (Auto) 6.6 Eosinophils (%) (Auto) 3.8 Basophils (%) (Auto) 2.5 Neutrophils # (Auto) 11.0 Lymphocytes # (Auto) 2.6 Monocytes # (Auto) 1.0 Eosinophils # (Auto) 0.6 Basophils # (Auto) 0.4 CBC Comment AUTO DIFF Differential Comment AUTO DIFF CONFIRMED Platelet Estimate LOW Platelet Morphology Comment NORMAL Basophilic Stippling MOD [place] Cells 1+ Rouleau PRESENT Keratocytes OCC Sodium Level 136 Potassium Level 3.3 Chloride Level 102 Carbon Dioxide Level 28.4 Anion Gap 6 Blood Urea Nitrogen 13 Creatinine 0.79 Estimat Glomerular Filtration 114 Rate Random Glucose 95 Calcium Level 7.5 Total Bilirubin 10.8 Aspartate Amino Transf 84 (AST/SGOT) Alanine Aminotransferase 45 (ALT/SGPT) Alkaline Phosphatase 116 Total Protein 5.9 Albumin 2.3 Date/Time Procedure Status Source Growth 01/06/17 14:10 Aerobic Blood Culture - Preliminary Resulted Blood Peripheral NO GROWTH IN 1 DAY 01/06/17 14:10 Anaerobic Blood Culture - Preliminary Resulted Blood Peripheral NO GROWTH IN 1 DAY 01/05/17 09:10 Gram Stain - Final Resulted Fluid Peritoneal Fluid 01/05/17 09:10 Body Fluid Culture - Preliminary Resulted Fluid Peritoneal Fluid NO GROWTH IN 48 HOURS. 01/04/17 05:35 Aerobic Blood Culture - Final Resulted Blood Peripheral Viridans Streptococcus Grp 01/04/17 05:35 Anaerobic Blood Culture - Preliminary Resulted Blood Peripheral NO GROWTH IN 3 DAYS Physical Exam HEENT: Pupils round and reactive to light; normocephalic; atraumatic; sever jaundice. Throat is clear. NECK: Neck is supple, no JVD, no lymphadenopathy. CHEST: Chest is clear to auscultation and percussion. CARDIAC: Regular rate and rhythm with no murmur gallop or rubs. ABDOMEN: Soft, mildly distended, nontender; no hepatosplenomegaly; bowel sounds are present in all four quadrants. EXTREMITIES: No clubbing, cyanosis, or edema. SKIN: Normal; no rash; + jaundice. SKETCH LINER: No focal deficits; alert and oriented times three. Assessment and Plan Plan cirrhosis related to ETOH, end stage, S/P Paracentesis, doing well, tolerating diet continue feeding patient contniue meds ok to DC home from GI stand Elva Alas MD Jan 07, 2017 20:42
[2017-01-08] MEDS: HYDROmorphone HCL PF 1 MG/ML VIAL IV PUSH PRN ×5 (00:05→21:34)
[2017-01-08 00:27] VITALS: BP 126/76; PULSE 79; RESP 16; TEMP 97.7; O2SAT 99
[2017-01-08] MEDS: VANCOMYCIN INJ 1,500 MG in SODIUM CHLORID 0.9% 500 ML INJ 500 ML IV SCH ×2 (01:33→14:29)
[2017-01-08] MEDS: cefTRIAXone INJ 1,000 MG in SODIUM CHLORIDE 0.9% INJ 100 ML IV SCH ×2 (04:45→17:32)
[2017-01-08 08:00] VITALS: BP 118/75; PULSE 88; RESP 18; TEMP 98.6; O2SAT 96
[2017-01-08 08:19] LABS: INTERNATIONAL NORMALIZED RATIO 1.8 RATIO; PROTHROMBIN TIME - PATIENT 19.9 SEC (9.8-11.6)
[2017-01-08] MEDS: LACTULOSE 20 GM/30 ML PO SCH ×2 (08:34→20:26)
[2017-01-08] MEDS: FUROSEMIDE 20 MG/2 ML VIAL IV PUSH SCH (08:36)
[2017-01-08] MEDS: THIAMINE HCL 100 MG TAB PO SCH (08:36)
[2017-01-08] MEDS: PANTOPRAZOLE SOD 40 MG DELAYED RELEASE TAB PO SCH (08:36)
[2017-01-08] MEDS: SPIRONOLACTONE 50 MG TAB PO SCH (08:36)
[2017-01-08] MEDS: SODIUM CHLORIDE 0.9% FLUSH 10 ML FLUSH IV FLUSH SCH ×2 (08:37→20:26)
[2017-01-08] MEDS: FOLIC ACID 1 MG TAB PO SCH (08:37)
[2017-01-08] MEDS: NADOLOL 20 MG TAB PO SCH (08:37)
[2017-01-08] MEDS: RIFAXIMIN 550 MG TAB PO SCH ×2 (08:37→20:22)
--- NOTE | 2017-01-08 08:39 | HHI.PR ---
Subjective Remarks Follow-up end-stage liver disease/cirrhosis and now bacteremia 01/06/17-patient seen and examined, Tmax 100 at midnight however currently afebrile. Denies any abdominal pain and tolerated by mouth without any competition nausea and vomiting. Reported improvement of lower extremity edema. 01/07/17-patient seen and examined, currently afebrile. Patient states he was up and ambulated the hallway and denies any shortness of breath or chest pain. Reports feeling much better compared to yesterday. By the bedside 01/08/17-patient seen and examined, afebrile, ammonia level SLIGHTLY to 35. Patient complains of tender left lower extremity Objective Vitals Vital Signs Date Time Temp Pulse Resp B/P Pulse Ox O2 Delivery O2 Flow Rate FiO2 01/08/17 00:27 97.7 79 16 126/76 99 01/07/17 20:28 97.4 73 16 135/77 97 01/07/17 16:00 98.3 79 17 121/69 95 01/07/17 12:00 97.4 83 18 118/70 96 I/O 01/07/17 01/07/17 01/07/17 01/08/17 01/08/17 01/08/17 07:00 15:00 23:00 07:00 15:00 23:00 Intake Total 500 ml 1060 ml Balance 500 ml 1060 ml Intake Oral 960 ml IV Total 500 ml 100 ml # Voids 1 4 1 # Bowel Movements 1 Result Diagram: 01/07/17 0725 01/08/17 0750 Objective Remarks GENERAL: NAD SKIN: Warm and dry. HEAD: Normocephalic. EYES: No scleral icterus. No injection or drainage. NECK: Supple, trachea midline. No JVD or lymphadenopathy. CARDIOVASCULAR: Regular rate and rhythm without murmurs, gallops, or rubs. RESPIRATORY: Breath sounds equal bilaterally. No accessory muscle use. GASTROINTESTINAL: Abdomen soft, non-tender, +distended. MUSCULOSKELETAL: No cyanosis; +2 edema LLE BACK: Nontender without obvious deformity. No CVA tenderness. A/P Problem List: (1) Cirrhosis of liver with ascites ICD Code: K74.60 Status: Acute (2) Bacteremia ICD Code: R78.81 Status: Acute (3) Leukocytosis ICD Code: D72.829 Status: Acute (4) Coagulopathy ICD Code: D68.9 Status: Acute Assessment and Plan 31-year-old man with Strep Viridian Bacteremia 2/2 SBP Repeat blood culture NTD Currently on Rocephin and vancomycin 2-D echo noted and per cardiology A possible atrial level shunt is demonstrated by color flow Doppler interrogation, clinical correlation recommended(possible PFO) Appreciate input from infectious disease specialist End-stage liver disease Cirrhosis of liver with ascites Status post paracentesis 01/05/17 Currently on Aldactone, lactulose twice a day and Lasix IV milligrams daily. Will change Lasix to by mouth in a.m. Continue Rifaximin 550 twice daily Appreciate input from palliative care medicine Gastroenterology signed off MELD score 22 Coagulopathy Secondary to end-stage liver disease Continue with treatment as in above Macrocytic anemia of chronic disease Monitor H&H and transfuse for hemoglobin less than 7 DVT prophylaxis: Chemical anti-prophylactic is contraindicated, bilateral SCDs Dany Julien MD Jan 08, 2017 08:39
[2017-01-08 12:00] VITALS: BP 111/66; PULSE 83; RESP 19; TEMP 98.7; O2SAT 100
[2017-01-08] MEDS ORDERED: PHARMACY ORDERED LAB ONE (13:45)
[2017-01-08 16:00] VITALS: BP 117/69; PULSE 85; RESP 18; TEMP 99; O2SAT 98
[2017-01-08 20:35] VITALS: BP 109/67; PULSE 82; RESP 16; TEMP 98.2; O2SAT 95
--- NOTE | 2017-01-08 22:04 | HHI.IDPN ---
Subjective Subjective Remarks co LLE pain, worsening swelling and bruise no fever Antibiotics vancomycin CFTX Allergies: Coded Allergies: No Known Allergies (Unverified , 01/04/17) Objective . Vital Signs Date Time Temp Pulse Resp B/P Pulse Ox O2 Delivery O2 Flow Rate FiO2 01/08/17 20:35 98.2 82 16 109/67 95 01/08/17 16:00 99.0 85 18 117/69 98 01/08/17 12:00 98.7 83 19 111/66 100 01/08/17 08:00 98.6 88 18 118/75 96 01/08/17 00:27 97.7 79 16 126/76 99 01/07/17 01/07/17 01/08/17 15:00 23:00 07:00 Intake Total 1060 ml Balance 1060 ml Intake Oral 960 ml IV Total 100 ml # Voids 4 1 # Bowel Movements 1 . Laboratory Tests Test 01/07/17 07:25 White Blood Count 15.6 TH/MM3 Red Blood Count 1.91 MIL/MM3 Hemoglobin 7.9 GM/DL Hematocrit 23.1 % Mean Corpuscular Volume 120.7 FL Mean Corpuscular Hemoglobin 41.3 PG Mean Corpuscular Hemoglobin 34.2 % Concent Red Cell Distribution Width 22.3 % Platelet Count 72 TH/MM3 Mean Platelet Volume 7.6 FL Neutrophils (%) (Auto) 70.5 % Lymphocytes (%) (Auto) 16.6 % Monocytes (%) (Auto) 6.6 % Eosinophils (%) (Auto) 3.8 % Basophils (%) (Auto) 2.5 % Neutrophils # (Auto) 11.0 TH/MM3 Lymphocytes # (Auto) 2.6 TH/MM3 Monocytes # (Auto) 1.0 TH/MM3 Eosinophils # (Auto) 0.6 TH/MM3 Basophils # (Auto) 0.4 TH/MM3 CBC Comment AUTO DIFF Differential Comment AUTO DIFF CONFIRMED Platelet Estimate LOW Platelet Morphology Comment NORMAL Basophilic Stippling MOD [place] Cells 1+ Rouleau PRESENT Keratocytes OCC Laboratory Tests Test 01/07/17 01/08/17 07:25 07:50 Sodium Level 136 MEQ/L Potassium Level 3.3 MEQ/L Chloride Level 102 MEQ/L Carbon Dioxide Level 28.4 MEQ/L Anion Gap 6 MEQ/L Blood Urea Nitrogen 13 MG/DL Creatinine 0.79 MG/DL 0.82 MG/DL Estimat Glomerular Filtration 114 ML/MIN 109 ML/MIN Rate Random Glucose 95 MG/DL Calcium Level 7.5 MG/DL Total Bilirubin 10.8 MG/DL Aspartate Amino Transf 84 U/L (AST/SGOT) Alanine Aminotransferase 45 U/L (ALT/SGPT) Alkaline Phosphatase 116 U/L Total Protein 5.9 GM/DL Albumin 2.3 GM/DL Ammonia 35 MCMOL/L Microbiology Date/Time Procedure Status Source Growth 01/06/17 14:00 Aerobic Blood Culture - Preliminary Resulted Blood Peripheral NO GROWTH IN 2 DAYS 01/06/17 14:00 Anaerobic Blood Culture - Preliminary Resulted Blood Peripheral NO GROWTH IN 2 DAYS 01/06/17 14:10 Aerobic Blood Culture - Preliminary Resulted Blood Peripheral NO GROWTH IN 2 DAYS 01/06/17 14:10 Anaerobic Blood Culture - Preliminary Resulted Blood Peripheral NO GROWTH IN 2 DAYS Imaging Last Impressions Cyst Biopsy Asp-Paracentesis US 01/05/17 0000 Signed Impressions: Service Date/Time: December 08:30 - CONCLUSION: Uncomplicated ultrasound guided paracentesis. Franki Aguirre Jr., MD Abdomen/Pelvis CT 01/04/17 0527 Signed Impressions: Service Date/Time: Wednesday, January 04, 2017 05:59 - CONCLUSION: 1. Cirrhosis and portal hypertension with increase in ascites since the previous study. 2. A sludgeball is suspected within the gallbladder lumen. 3. Diffuse small bowel fold thickening noted and likely related to the ascites. 4. Interval development of diffuse colonic wall thickening most evident in the transverse colon. This can be seen with colitis or may be related to the ascites. There Abdirashid Tovar MD Physical Exam CONSTITUTIONAL/GENERAL: This is an adequately nourished patient, in no apparent distress. TUBES/LINES/DRAINS: SKIN: + mild jaundice, rashes, or lesions. Ecchymoses on upper extremities. No wounds seen anteriorly. Skin temperature appropriate. Not diaphoretic. CARDIOVASCULAR: Regular rate and rhythm without murmurs, gallops, or rubs. No JVD. Peripheral pulses symmetric. RESPIRATORY/CHEST: Symmetric, unlabored respirations. Clear to auscultation. Breath sounds equal bilaterally. No wheezes, rales, or rhonchi. GASTROINTESTINAL: Abdomen soft, non-tender, + moderately distended. No hepato- splenomegaly, or palpable masses. No guarding. Bowel sounds present. GENITOURINARY: Without palpable bladder distension. MUSCULOSKELETAL: Extremities without clubbing, cyanosis, 2+ diffuse soft pitting edema on RLE and 3-4 + on LLE, huge echymoses on L thigh ; pt limps with ambulation No joint tenderness or effusion noted. No calf tenderness. No mottling or clubbing. NEUROLOGICAL: Awake and alert. Motor and sensory grossly within normal limits. Follows commands. Clear speech. Moves all extremities. PSYCHIATRIC: No obvious anxiety/depression. no apparent hallucinations or other psychotic thought process. Assessment & Plan Remarks ETOH induced liver cirrosis, awaitin eval'n for transplant - abstinent Viridans strep sepsis, likely from SBP - clx negative Echymosis LLE Rec's: dc CFTX -cont vanco for now - fu repeat blood clx untill final - chk 2 D echo Chyna Singh MD Jan 08, 2017 22:04
[2017-01-09 01:08] VITALS: BP 109/76; PULSE 84; RESP 20; TEMP 97.9; O2SAT 97
[2017-01-09] MEDS: VANCOMYCIN INJ 1,500 MG in SODIUM CHLORID 0.9% 500 ML INJ 500 ML IV SCH ×2 (01:50→12:46)
[2017-01-09] MEDS: HYDROmorphone HCL PF 1 MG/ML VIAL IV PUSH PRN ×6 (01:51→22:54)
[2017-01-09 08:00] VITALS: BP 110/66; PULSE 86; RESP 18; TEMP 98.6; O2SAT 94
--- NOTE | 2017-01-09 08:38 | HHI.PR ---
Subjective Remarks Follow-up end-stage liver disease/cirrhosis and now bacteremia 01/06/17-patient seen and examined, Tmax 100 at midnight however currently afebrile. Denies any abdominal pain and tolerated by mouth without any competition nausea and vomiting. Reported improvement of lower extremity edema. 01/07/17-patient seen and examined, currently afebrile. Patient states he was up and ambulated the hallway and denies any shortness of breath or chest pain. Reports feeling much better compared to yesterday. By the bedside 01/08/17-patient seen and examined, afebrile, ammonia level SLIGHTLY to 35. Patient complains of tender left lower extremity 01/09/17-patient seen and examined, afebrile ; only complains of painful left lower extremity Objective Vitals Vital Signs Date Time Temp Pulse Resp B/P Pulse Ox O2 Delivery O2 Flow Rate FiO2 01/09/17 07:05 16 01/09/17 05:09 01/09/17 01:08 97.9 84 20 109/76 97 01/08/17 20:35 98.2 82 16 109/67 95 01/08/17 16:00 99.0 85 18 117/69 98 01/08/17 12:00 98.7 83 19 111/66 100 I/O 01/08/17 01/08/17 01/08/17 01/09/17 01/09/17 01/09/17 06:59 14:59 22:59 06:59 14:59 22:59 Intake Total 510 ml 100 ml Balance 510 ml 100 ml IV Total 510 ml 100 ml # Voids 1 0 Result Diagram: 01/07/17 0725 01/08/17 0750 Objective Remarks GENERAL: NAD SKIN: Warm and dry. HEAD: Normocephalic. EYES: No scleral icterus. No injection or drainage. NECK: Supple, trachea midline. No JVD or lymphadenopathy. CARDIOVASCULAR: Regular rate and rhythm without murmurs, gallops, or rubs. RESPIRATORY: Breath sounds equal bilaterally. No accessory muscle use. GASTROINTESTINAL: Abdomen soft, non-tender, +distended. MUSCULOSKELETAL: No cyanosis; +2 edema LLE BACK: Nontender without obvious deformity. No CVA tenderness. A/P Problem List: (1) Cirrhosis of liver with ascites ICD Code: K74.60 Status: Acute (2) Bacteremia ICD Code: R78.81 Status: Acute (3) Leukocytosis ICD Code: D72.829 Status: Acute (4) Coagulopathy ICD Code: D68.9 Status: Acute Assessment and Plan 31-year-old man with Strep Viridian Bacteremia 2/2 SBP Repeat blood culture NTD Currently on vancomycin; status post Rocephin 2-D echo noted and per cardiology A possible atrial level shunt is demonstrated by color flow Doppler interrogation, clinical correlation recommended(possible PFO) Appreciate input from infectious disease specialist End-stage liver disease Cirrhosis of liver with ascites Status post paracentesis 01/05/17 Currently on Aldactone, lactulose twice a day and Lasix IV milligrams daily. Continue Rifaximin 550 twice daily Appreciate input from palliative care medicine Gastroenterology signed off MELD score 22 Coagulopathy Secondary to end-stage liver disease Continue with treatment as in above Macrocytic anemia of chronic disease Monitor H&H and transfuse for hemoglobin less than 7 DVT prophylaxis: Chemical anti-prophylactic is contraindicated, bilateral SCDs Dany Julien MD Jan 09, 2017 08:38
[2017-01-09] MEDS: LACTULOSE 20 GM/30 ML PO SCH ×2 (09:13→21:25)
[2017-01-09] MEDS: RIFAXIMIN 550 MG TAB PO SCH ×2 (09:14→21:27)
[2017-01-09] MEDS: SODIUM CHLORIDE 0.9% FLUSH 10 ML FLUSH IV FLUSH SCH ×2 (09:14→22:54)
[2017-01-09] MEDS: NADOLOL 20 MG TAB PO SCH (09:14)
[2017-01-09] MEDS: SPIRONOLACTONE 50 MG TAB PO SCH (09:14)
[2017-01-09] MEDS: FOLIC ACID 1 MG TAB PO SCH (09:14)
[2017-01-09] MEDS: PANTOPRAZOLE SOD 40 MG DELAYED RELEASE TAB PO SCH (09:14)
[2017-01-09] MEDS: THIAMINE HCL 100 MG TAB PO SCH (09:14)
[2017-01-09] MEDS: FUROSEMIDE 20 MG/2 ML VIAL IV PUSH SCH (09:14)
[2017-01-09 12:00] VITALS: BP 121/70; PULSE 86; RESP 18; TEMP 98.5; O2SAT 99
[2017-01-09 16:00] VITALS: BP 121/70; PULSE 86; RESP 18; TEMP 98.5; O2SAT 99
--- NOTE | 2017-01-09 17:49 | HHI.PR ---
Addendum to Inpatient Note Addendum Reason: Additional Documentation Additional Information repeat blood clx remain negative 2 D echo neg for vegetations - OK to switch to augmentin or amoxicillin to complete 10-14 days of abx rechk CBC Chyna Singh MD Jan 09, 2017 17:49
[2017-01-09 20:00] VITALS: BP 125/87; PULSE 89; RESP 18; TEMP 98; O2SAT 98
[2017-01-09] MEDS: AMOXICILLIN/CLAVULANATE K 500 MG TAB PO SCH (21:30)
[2017-01-10] VITALS: BP 100/64; PULSE 84; RESP 16; TEMP 97.1; O2SAT 96
[2017-01-10] MEDS: HYDROmorphone HCL PF 1 MG/ML VIAL IV PUSH PRN ×2 (03:04→08:11)
[2017-01-10 05:40] LABS: AUTOMATED NEUTROPHIL # 9.5 TH/MM3 (1.8-7.7); BASOPHIL # 0.2 TH/MM3 (0-0.2); BASOPHIL % 1.2 % (0.0-2.0); EOSINOPHIL # 0.4 TH/MM3 (0-0.4); EOSINOPHIL % 3.1 % (0.0-4.0); HEMATOCRIT 23.2 % (39.0-51.0); LYMPH % 14.9 % (9.0-44.0); MEAN CELL VOLUME 120.2 FL (80.0-100.0); MEAN CORPUSCULAR HEMOGLOBIN 41.4 PG (27.0-34.0); MEAN CORPUSCULAR HGB CONC 34.5 % (32.0-36.0); MONO % 8.6 % (0.0-8.0); NEUT % 72.2 % (16.0-70.0); PLATELET COUNT 78 TH/MM3 (150-450); RED BLOOD COUNT 1.93 MIL/MM3 (4.50-5.90); RED CELL DISTRIBUTION WIDTH 19.4 % (11.6-17.2); WHITE BLOOD COUNT 13.2 TH/MM3 (4.0-11.0)
[2017-01-10 05:53] LABS: CHLORIDE 102 MEQ/L (98-107); POTASSIUM 3.5 MEQ/L (3.5-5.1); SODIUM (NA) 137 MEQ/L (136-145)
[2017-01-10 05:54] LABS: HEMO FLAGS AUTO DIFF
[2017-01-10] MEDS: AMOXICILLIN/CLAVULANATE K 500 MG TAB PO SCH (05:59)
[2017-01-10 06:02] LABS: ANION GAP 7 MEQ/L (5-15); BICARBONATE 28.4 MEQ/L (21.0-32.0); BLOOD UREA NITROGEN 11 MG/DL (7-18)
[2017-01-10 06:05] LABS: ALT (GPT) 42 U/L (12-78); AST (GOT) 77 U/L (15-37); GLOMERULAR FILTRATION RATE 112 ML/MIN (>89)
[2017-01-10 06:06] LABS: TOTAL BILIRUBIN ADULT 11.8 MG/DL (0.2-1.0)
[2017-01-10 06:08] LABS: ALKALINE PHOSPHATASE 124 U/L (45-117)
[2017-01-10 06:45] LABS: SCAN/DIFF AUTO DIFF CONFIRMED
[2017-01-10 06:46] LABS: PLATELET ESTIMATE SMEAR LOW (NORMAL); PLATELET MORPHOLOGY NORMAL (NORMAL)
[2017-01-10 08:00] VITALS: BP 133/74; PULSE 93; RESP 19; TEMP 98.1; O2SAT 98
[2017-01-10 08:48] VITALS: RESP 18
[2017-01-10] MEDS: SODIUM CHLORIDE 0.9% FLUSH 10 ML FLUSH IV FLUSH SCH (08:55)
[2017-01-10] MEDS: FUROSEMIDE 20 MG/2 ML VIAL IV PUSH SCH (08:55)
[2017-01-10] MEDS: FOLIC ACID 1 MG TAB PO SCH (08:56)
[2017-01-10] MEDS: THIAMINE HCL 100 MG TAB PO SCH (08:56)
[2017-01-10] MEDS: PANTOPRAZOLE SOD 40 MG DELAYED RELEASE TAB PO SCH (08:56)
[2017-01-10] MEDS: RIFAXIMIN 550 MG TAB PO SCH (08:56)
[2017-01-10] MEDS: NADOLOL 20 MG TAB PO SCH (08:56)
[2017-01-10] MEDS: LACTULOSE 20 GM/30 ML PO SCH (08:56)
[2017-01-10] MEDS: SPIRONOLACTONE 50 MG TAB PO SCH (08:57)
[2017-01-10] MEDS ORDERED: FOLI1TAB6 PO (09:00)
[2017-01-10] MEDS ORDERED: FURO1TAB62 PO (09:00)
[2017-01-10] MEDS ORDERED: NADO1TAB16 PO (09:00)
[2017-01-10] MEDS ORDERED: GNP100TA3 PO (09:00)
[2017-01-10] MEDS ORDERED: AUGM500T7 PO (09:00)
[2017-01-10] MEDS ORDERED: ALDA50TA2 PO (09:00)
[2017-01-10] MEDS ORDERED: XIFA550T4 PO (09:00)
[2017-01-10] MEDS ORDERED: OXYC-392 PO (09:00)
--- NOTE | 2017-01-10 09:05 | HHI.PR ---
Subjective Remarks Follow-up end-stage liver disease/cirrhosis and now bacteremia 01/06/17-patient seen and examined, Tmax 100 at midnight however currently afebrile. Denies any abdominal pain and tolerated by mouth without any competition nausea and vomiting. Reported improvement of lower extremity edema. 01/07/17-patient seen and examined, currently afebrile. Patient states he was up and ambulated the hallway and denies any shortness of breath or chest pain. Reports feeling much better compared to yesterday. By the bedside 01/08/17-patient seen and examined, afebrile, ammonia level SLIGHTLY to 35. Patient complains of tender left lower extremity 01/09/17-patient seen and examined, afebrile ; only complains of painful left lower extremity 01/10/17-patient seen and examined, afebrile and no acute event overnight. Pain to left was treated to well-controlled Objective Vitals Vital Signs Date Time Temp Pulse Resp B/P Pulse Ox O2 Delivery O2 Flow Rate FiO2 01/10/17 08:48 18 01/10/17 08:48 18 01/10/17 08:00 98.1 93 19 133/74 98 01/10/17 00:00 97.1 84 16 100/64 96 01/09/17 20:00 98.0 89 18 125/87 98 01/09/17 16:00 98.5 86 18 121/70 99 01/09/17 12:00 98.5 86 18 121/70 99 I/O 01/09/17 01/09/17 01/09/17 01/10/17 01/10/17 01/10/17 06:59 14:59 22:59 06:59 14:59 22:59 Intake Total 100 ml 364 ml 400 ml Balance 100 ml 364 ml 400 ml Intake Oral 400 ml IV Total 100 ml 364 ml # Voids 2 # Bowel Movements 0 Result Diagram: 01/10/17 0523 01/10/17 0523 Imaging Last Impressions Cyst Biopsy Asp-Paracentesis US 01/05/17 0000 Signed Impressions: Service Date/Time: December 08:30 - CONCLUSION: Uncomplicated ultrasound guided paracentesis. Franki Aguirre Jr., MD Abdomen/Pelvis CT 01/04/17 0527 Signed Impressions: Service Date/Time: Wednesday, January 04, 2017 05:59 - CONCLUSION: 1. Cirrhosis and portal hypertension with increase in ascites since the previous study. 2. A sludgeball is suspected within the gallbladder lumen. 3. Diffuse small bowel fold thickening noted and likely related to the ascites. 4. Interval development of diffuse colonic wall thickening most evident in the transverse colon. This can be seen with colitis or may be related to the ascites. There Abdirashid Tovar MD Objective Remarks GENERAL: NAD SKIN: Warm and dry. HEAD: Normocephalic. EYES: No scleral icterus. No injection or drainage. NECK: Supple, trachea midline. No JVD or lymphadenopathy. CARDIOVASCULAR: Regular rate and rhythm without murmurs, gallops, or rubs. RESPIRATORY: Breath sounds equal bilaterally. No accessory muscle use. GASTROINTESTINAL: Abdomen soft, non-tender, +distended. MUSCULOSKELETAL: No cyanosis; +2 edema LLE BACK: Nontender without obvious deformity. No CVA tenderness. Procedures none A/P Problem List: (1) Cirrhosis of liver with ascites ICD Code: K74.60 Status: Acute (2) Bacteremia ICD Code: R78.81 Status: Acute (3) Leukocytosis ICD Code: D72.829 Status: Acute (4) Coagulopathy ICD Code: D68.9 Status: Acute Assessment and Plan 31-year-old man with Strep Viridian Bacteremia 2/2 SBP Repeat blood culture NTD Currently on Augmentin 14 days, status post Rocephin 2-D echo noted and per cardiology A possible atrial level shunt is demonstrated by color flow Doppler interrogation, clinical correlation recommended(possible PFO) Appreciate input from infectious disease specialist End-stage liver disease Cirrhosis of liver with ascites Status post paracentesis 01/05/17 Currently on Aldactone, lactulose twice a day and Lasix IV milligrams daily. Continue Rifaximin 550 twice daily Appreciate input from palliative care medicine Gastroenterology signed off MELD score 22 Coagulopathy Secondary to end-stage liver disease Continue with treatment as in above Macrocytic anemia of chronic disease Monitor H&H and transfuse for hemoglobin less than 7 DVT prophylaxis: Chemical anti-prophylactic is contraindicated, bilateral SCDs Dany Julien MD Jan 10, 2017 09:05
--- NOTE | 2017-01-10 09:08 | HHI.DS ---
Discharge Summary Admission Date Jan 04, 2017 at 06:39 Discharge Date: Jan 10, 2017 Admitting Diagnosis sepsis, hepatic encephalopathy, thrombocytopenia (1) Cirrhosis of liver with ascites ICD Code: K74.60 (2) Bacteremia ICD Code: R78.81 (3) Leukocytosis ICD Code: D72.829 (4) Coagulopathy ICD Code: D68.9 Procedures none Brief History - From Admission Patient is a 31-year-old gentleman with a known history of alcoholic cirrhosis with significantly poor prognosis and high risk of mortality due to poor discriminate function. Patient again to the emergency room complaining of abdominal pressure and distention. He was discharged the hospital a few days ago were he was treated for of significant coagulopathy, elevated ammonia and hyponatremia. Patient improved after aggressive medical therapy. At that time and was discussed with the patient that his overall prognosis was for high mortality. Patient expressed understanding. He admits adherence with his medical treatment since his discharge and has come back to the hospital for further evaluation and to discuss his options long-term CBC/BMP: 01/10/17 0523 01/10/17 0523 Significant Findings Laboratory Tests Test 01/08/17 01/08/17 01/10/17 07:50 14:05 05:23 Prothrombin Time 19.9 SEC (9.8-11.6) Ammonia 35 MCMOL/L 44 MCMOL/L (11-32) (11-32) Vancomycin Level Trough 15.1 MCG/ML (5.0-10.0) White Blood Count 13.2 TH/MM3 (4.0-11.0) Red Blood Count 1.93 MIL/MM3 (4.50-5.90) Hemoglobin 8.0 GM/DL (13.0-17.0) Hematocrit 23.2 % (39.0-51.0) Mean Corpuscular Volume 120.2 FL (80.0-100.0) Mean Corpuscular Hemoglobin 41.4 PG (27.0-34.0) Red Cell Distribution Width 19.4 % (11.6-17.2) Platelet Count 78 TH/MM3 (150-450) Neutrophils (%) (Auto) 72.2 % (16.0-70.0) Monocytes (%) (Auto) 8.6 % (0.0-8.0) Neutrophils # (Auto) 9.5 TH/MM3 (1.8-7.7) Monocytes # (Auto) 1.1 TH/MM3 (0-0.9) Platelet Estimate LOW (NORMAL) Calcium Level 8.0 MG/DL (8.5-10.1) Total Bilirubin 11.8 MG/DL (0.2-1.0) Aspartate Amino Transf 77 U/L (15-37) (AST/SGOT) Alkaline Phosphatase 124 U/L (45-117) Total Protein 5.8 GM/DL (6.4-8.2) Albumin 2.2 GM/DL (3.4-5.0) Imaging Last Impressions Cyst Biopsy Asp-Paracentesis US 01/05/17 0000 Signed Impressions: Service Date/Time: December 08:30 - CONCLUSION: Uncomplicated ultrasound guided paracentesis. Franki Aguirre Jr., MD Abdomen/Pelvis CT 01/04/17 0527 Signed Impressions: Service Date/Time: Wednesday, January 04, 2017 05:59 - CONCLUSION: 1. Cirrhosis and portal hypertension with increase in ascites since the previous study. 2. A sludgeball is suspected within the gallbladder lumen. 3. Diffuse small bowel fold thickening noted and likely related to the ascites. 4. Interval development of diffuse colonic wall thickening most evident in the transverse colon. This can be seen with colitis or may be related to the ascites. There Abdirashid Tovar MD PE at Discharge GENERAL: NAD SKIN: Warm and dry. HEAD: Normocephalic. EYES: No scleral icterus. No injection or drainage. NECK: Supple, trachea midline. No JVD or lymphadenopathy. CARDIOVASCULAR: Regular rate and rhythm without murmurs, gallops, or rubs. RESPIRATORY: Breath sounds equal bilaterally. No accessory muscle use. GASTROINTESTINAL: Abdomen soft, non-tender, +distended. MUSCULOSKELETAL: No cyanosis; +2 edema LLE BACK: Nontender without obvious deformity. No CVA tenderness. Hospital Course Patient admitted secondary to sepsis and treated for strep Viridian Bacteremia secondary to SBP with IV antibiotics for which infectious disease patient was consulted. GI was also consulted and patient underwent paracentesis. He was treated for cirrhosis and placed on Aldactone, Lasix, Rifaximin with monitoring of ammonia level. Prior to discharge, patient was switched to by mouth Augmentin 14 days. DVT and GI prophylaxis were provided. Pt Condition on Discharge: Stable Discharge Disposition: Discharge Home Discharge Time: <= 30 minutes Discharge Instructions DIET: Follow Instructions for: Heart Healthy Diet Activities you can perform: Regular-No Restrictions Follow up Referrals: PCP Follow-up - 1 Week New Medications: Furosemide (Lasix) 20 Mg Tab 20 MG PO DAILY Prevent Heart Failure #30 Ref 3 TAB Amoxicillin-Clavulanate (Augmentin) 500-125 mg Tab 500 MG PO Q8HR Infection #42 TAB Folic Acid (Folic Acid) 1 Mg Tablet 1 MG PO DAILY Alcohol Detox #30 MG Nadolol (Corgard) 20 Mg Tab 20 MG PO DAILY Immunosuppression #30 TAB Oxycodone (Oxycodone) 5 Mg Tab 5 MG PO Q8H PRN BREAKTHROUGH PAIN #20 TAB Rifaximin (Xifaxan) 550 Mg Tab 550 MG PO BID Infection #60 TAB Spironolactone (Aldactone) 50 Mg Tab 50 MG PO DAILY Build Immunity #30 TAB Thiamine HCl (Gnp Vitamin B-1) 100 Mg Tab 100 MG PO DAILY Alcohol Detox #30 TAB Continued Medications: Esomeprazole DR (Esomeprazole DR) 40 Mg Capdr 40 MG PO DAILY #30 Ref 0 CAP Furosemide (Furosemide) 20 Mg Tab 20 MG PO DAILY ascites #30 TAB Lactulose Liq (Lactulose Liq) 10 Gm/15 Ml Soln 30 ML PO BID Ref 0 ML Potassium Chloride ER (Klor-Con 10) 10 Meq Tab 10 MEQ PO DAILY potassium loss #30 TAB Discontinued Medications: Folic Acid (Folic Acid) 400 Mcg Tab 1 MG PO DAILY Nutritional Supplement Ref 0 TAB Spironolactone (Aldactone) 25 Mg Tab 25 MG PO DAILY #30 Ref 0 TAB Thiamine (Vitamin B-1) 100 Mg Tab 100 MG PO DAILY Nutritional Supplement Ref 0 TAB Dany Julien MD Jan 10, 2017 09:07
== END 2017-01-10 10:33 | disposition home or self-care (01) | DRG 871 ==
LOC: PHED 00:47 → PHEDA 06:39 → PH3A 10:28
PROVIDERS: ADMIT Hospitalist; ATTEND Hospitalist
PROC: 0W9G3ZZ Drainage of Peritoneal Cavity, Percutaneous Approach (ICD-10-PCS; principal; 2017-01-05)
PROC: 30233K1 Transfusion of Nonautologous Frozen Plasma into Peripheral Vein, Percutaneous Approach (ICD-10-PCS; 2017-01-05)
DX: A40.8 Other streptococcal sepsis (principal); K65.2 Spontaneous bacterial peritonitis; D68.4 Acquired coagulation factor deficiency; K76.6 Portal hypertension; D69.59 Other secondary thrombocytopenia; K70.31 Alcoholic cirrhosis of liver with ascites; K72.90 Hepatic failure, unspecified without coma; F31.9 Bipolar disorder, unspecified; F41.9 Anxiety disorder, unspecified; K21.9 Gastro-esophageal reflux disease without esophagitis; F17.210 Nicotine dependence, cigarettes, uncomplicated; E83.119 Hemochromatosis, unspecified; M54.40 Lumbago with sciatica, unspecified side; D63.8 Anemia in other chronic diseases classified elsewhere
CPT/HCPCS: 36430; 49083; 74177; 76937; 80053; 80202; 81001; 82140; 82565; 83605; 83690; 83735; 85007; 85025; 85027; 85610; 85730; 86927; 87040; 87070; 87186; 87205; 93308; 96365; 96375; C1729; J0696; J1170; J1940; J2405; J3370; J7030; J7040; J7050; P9017; P9047; Q9967